=== PATIENT | female | born 1960 | race Caucasian/White ===

== ENCOUNTER 2017-09-22 22:16 | Observation (INO) ==
[2017-09-22] MEDS ORDERED: methylPREDNISolone 125 MG/2 ML VIAL IVP ONE (22:36)
[2017-09-22] MEDS ORDERED: Ipratropium/Albuterol Neb 3 ML IH ONE (22:36)
--- NOTE | 2017-09-22 22:37 | Emergency Department Note ---
Disposition Clinical Impression: COPD exacerbation Disposition: Admitted As Inpatient Condition: Good Time of Disposition: 00:31 SOB HPI - General Chief Complaint: ED Shortness of Breath/Dyspnea Stated Complaint: COPD Time Seen by Provider: 09/22/17 22:18 Source: patient, EMS Mode of arrival: EMS Limitations: no limitations Nursing Notes Reviewed: Yes Vital Signs Reviewed: Yes - History of Present Illness 56-year-old female history of COPD 3 L home oxygen supplementation as needed at home presents to emergency department via EMS for difficulty breathing. States over the past 3 days or so she has progressively been more sure breath. She cannot catch her breath. She denies any chest pain. She reports nonproductive cough. Denies any fevers. States this morning she woke up while laying down having a hard time catching her breath. She is been using albuterol inhalers with minimal relief. She states whenever she is able to use the nebulizer she does bring stuff up. Patient was given breathing treatment by squad with some improvement. Patient feels very anxious. She is not been recently hospitalized. 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 She denies any leg swelling. She is complaining of a headache which she reports occurs when she does not get enough oxygen to her brain. Describes a thriving pain to the front of her forehead. Denies any weakness or tingling. Pt Subjective Complaint: shortness of breath - Related Data Home Medications Medication Instructions Recorded Confirmed Escitalopram [Lexapro] 20 mg PO DAILY 11/01/15 09/23/17 Levothyroxine [Synthroid] 88 mcg PO QAM 11/27/15 09/23/17 Previous Rx's Medication Instructions Recorded Albuterol Sulfate [Albuterol 2 puff IH Q4HR PRN #1 hfa.aer.ad 11/03/15 Inhaler] Budesonide/Formoterol 80/4.5 1 puff IH BIDR #1 hfa.aer.ad 11/03/15 [Symbicort 80/4.5] Tiotropium [Spiriva] 18 mcg IH 0700 #30 capsule 11/03/15 Allergies Allergy/AdvReac Type Severity Reaction Status Date / Time morphine AdvReac Hives Verified 09/23/17 00:38 All systems ED: reviewed and negative except as stated. Review of Systems: As Per HPI Constitutional: Denies: fever, chills ENT ED: Denies: congestion Cardiovascular: Denies: chest pain Respiratory: Reports: cough, dyspnea Gastrointestinal: Denies: abdominal pain, nausea, vomiting Musculoskeletal: Denies: back pain Integumentary: Denies: rash, abrasion Neurological: Reports: headache Past Medical History - Past Medical History Attestation: Yes The following information was validated with the patient. Source: patient Medical history: Reports: arthritis, COPD, GERD, osteoporosis, thyroid disease, other Surgical history: Reports: other Psychiatric history: Reports: anxiety, bipolar, depression, previous psychiatric hospitalization - Social History Smoking Status: Current every day smoker Smokeless Tobacco Status: No (not smoked for 4 days) Alcohol use: Reports: occasionally Drug use: Reports: none Physical Exam - General Limitations: no limitations General appearance: alert, anxious, in distress (Mild respiratory) - Head Head exam: atraumatic, normocephalic, normal inspection - Eye Eye exam: Present: normal appearance, PERRL, EOMI - ENT ENT exam: normal exam, normal oropharynx, mucous membranes moist - Neck Neck exam: Present: normal inspection, full ROM, trachea midline - Chest Chest inspection: Present: normal inspection, symmetric chest wall rise - Respiratory Respiratory exam: Present: respiratory distress (Mild, she is very anxious and tachypneic), wheezes (Diffuse) - Expanded Respiratory Exam Location: wheezes: Left, Right, decreased breath sounds: Left, Right - Cardiovascular Cardiovascular exam: Present: regular rate, normal rhythm, normal heart sounds - Abdominal Exam Abdominal exam: Present: soft, Non-Tender, normal bowel sounds. Absent: tenderness, distention, guarding, rebound, rigidity - Extremities Exam Extremities exam: Present: normal inspection, full ROM, normal capillary refill. Absent: tenderness, pedal edema, calf tenderness - Neurological Exam Neurological exam: Present: alert, oriented X3 - Expanded Neurological Exam Patient oriented to: Present: person, place, time Speech: Present: fluid speech Motor strength - LUE: 5/5 Motor strength - RUE: 5/5 Motor strength - LLE: 5/5 Motor strength - RLE: 5/5 - Psychiatric Psychiatric exam: Present: normal affect, normal mood - Skin Skin exam: Present: warm, dry, intact, normal color. Absent: rash, cyanosis, diaphoresis Course Course Narrative: Patient presents with difficulty breathing worse over the past several days. History COPD. She appears in some respiratory distress. She is very anxious. Tight aeration. Diffuse wheezing. Suspect likely COPD exacerbation. Will give her breathing treatment as well Solu-Medrol. Will reevaluate. At this moment she is complaining of some head ache as well. She attributes this to poor oxygen flow to her head. Toradol ordered for pain. - Reevaluation(s) Reevaluation #1: Review for labs completely unremarkable. EKG without any acute ischemic changes. Chest x-ray does not show pneumonia. Suspect this is most likely a COPD exacerbation. She has better air exchange and will require admission for further management. IV ceftriaxone and azithromycin. She is requesting Tylenol for her headache. Impression is COPD exacerbation. Patient remained stable. Airways intact. She is awake and alert. - Consultations Consultation #1: Spoke with on-call hospitalist simran Jensen to admit for COPD exacerbation. No further orders at this time Time: 00:32 Vital Signs Temperature 98.3 F 09/22/17 22:18 Pulse Rate 98 09/22/17 22:18 Respiratory Rate 20 09/22/17 22:18 Blood Pressure 141/134 09/22/17 22:18 O2 Sat by Pulse Oximetry 94 09/22/17 22:18 Temperature 98.1 F 09/23/17 01:27 Pulse Rate 86 09/23/17 01:27 Respiratory Rate 16 09/23/17 04:01 Blood Pressure 133/91 09/23/17 01:27 O2 Sat by Pulse Oximetry 96 09/23/17 04:01 Oxygen Delivery Oxygen Delivery Nasal Cannula Shortness of Breath/Dyspnea - [facility] Narrative Medical decision making narrative: Patient was discussed with my attending physician who agrees with ED management and final disposition. They independently evaluated the patient. Please refer to their attestation to this encounter for additional information. This note was generated by [employer] voice recognition software and as a result grammatical or spelling errors may occur using this program. - Medical Records Medical records reviewed: Yes I reviewed the patient's medical records. - Lab Data Lab results reviewed: Yes I reviewed the patient's lab results. Result diagrams: 09/23/17 03:51 09/23/17 03:51 Lab Results 09/22/17 09/22/17 Range/Units 22:57 22:57 WBC 6.1 (4.3-11.1) K/mcL RBC 3.95 (3.82-4.97) M/mcL Hgb 12.9 (11.5-15.4) g/dL Hct 36.6 (35.3-44.9) % MCV 92.7 (83.0-100.0) fL MCH 32.7 (28.0-33.3) pg MCHC 35.2 (31.6-35.5) g/dL RDW 12.4 (11.5-14.5) % Plt Count 214 (140-400) K/mcL MPV 10.3 (9.4-12.4) fL Immature Gran % 0.3 (0-4) % Seg Neutrophils % 56.0 % Lymphocytes % 26.1 % Monocytes % 14.4 % Eosinophils % 2.5 % Basophils % 0.7 % Neutrophils # 3.4 (1.6-8.9) K/mcL Lymphocytes # 1.6 (0.6-4.6) K/mcL Monocytes # 0.9 (0.0-1.3) K/mcL Eosinophils # 0.2 (0.0-0.6) K/mcL Basophils # 0.0 (0.0-0.2) K/mcL Sodium 137 (136-145) mEq/L Potassium 3.5 (3.5-5.1) mEq/L Chloride 103 (98-107) mEq/L Carbon Dioxide 26 (23-29) mEq/L BUN 7 (6-20) mg/dL Creatinine 0.64 (0.60-1.20) mg/dL Est GFR ( Amer) > 60 (> 60) Est GFR (Non-Af Amer) > 60 (> 60) BUN/Creatinine Ratio 11 (6-26) Glucose 105 (70-105) mg/dL Calculated Osmolality 282 (280-300) Calcium 9.5 (8.6-10.3) mg/dL - Radiology Data Radiology results reviewed: Yes I reviewed the patient's radiology results. Chest X-Ray 09/22/17 22:36 IMPRESSION: No acute process. D/ / Dimitri Hawkins MD / Dimitri Hawkins MD Interpreting Provider: Dimitri Hawkins MD - EKG Data EKG attestation: Yes I reviewed and interpreted this EKG. EKG results narrative: EKG performed 2241 normal sinus rhythm with short MN interval 94 beats per minute, normal axis, no ST elevation or depression, no T-wave version, intervals within normal limits. Compared to prior EKG performed 11/15/2016 similar consistent findings of normal sinus rhythm. No acute ischemic changes.
[2017-09-22] MEDS ORDERED: Ketorolac 15 MG/ML VIAL IVP ONE (22:47)
[2017-09-22 23:36] LABS: Basophils % 0.7 %; Eosinophils # 0.2 K/mcL (0.0-0.6); Eosinophils % 2.5 %; Hematocrit 36.6 % (35.3-44.9); Hemoglobin 12.9 g/dL (11.5-15.4); Immature Granulocytes % 0.3 % (0-4); Lymphocytes # 1.6 K/mcL (0.6-4.6); Lymphocytes % 26.1 %; Mean Corpuscular HGB Conc 35.2 g/dL (31.6-35.5); Mean Corpuscular Hemoglobin 32.7 pg (28.0-33.3); Mean Corpuscular Volume 92.7 fL (83.0-100.0); Mean Platelet Volume 10.3 fL (9.4-12.4); Monocytes # 0.9 K/mcL (0.0-1.3); Monocytes % 14.4 %; Neutrophils # 3.4 K/mcL (1.6-8.9); Platelet Count 214 K/mcL (140-400); Red Blood Count 3.95 M/mcL (3.82-4.97); Red Cell Distribution Width 12.4 % (11.5-14.5)
[2017-09-22] MEDS ORDERED: Acetaminophen 325 MG TABLET PO ONE (23:39)
[2017-09-22 23:56] LABS: BUN/Creatinine Ratio 11 (6-26); Blood Urea Nitrogen 7 mg/dL (6-20); Calcium 9.5 mg/dL (8.6-10.3); Carbon Dioxide 26 mEq/L (23-29); Chloride 103 mEq/L (98-107); Glucose 105 mg/dL (70-105); Osmolality,Calculated 282 (280-300); Potassium 3.5 mEq/L (3.5-5.1); Sodium 137 mEq/L (136-145); eGFR For African Americans > 60 (> 60); eGFR For Non-African Americans > 60 (> 60)
[2017-09-23] MEDS ORDERED: Azithromycin 500 MG in D5% in Water 250 ML IVPB ONE (00:26)
[2017-09-23] MEDS ORDERED: cefTRIAXone 2,000 MG in Water for inj. (sterile) 20 ML 20 ML IVPB ONE (00:26)
--- NOTE | 2017-09-23 00:46 | Emergency Department Note ---
Disposition Clinical Impression: COPD exacerbation Disposition: Admitted As Inpatient Condition: Good General Adult HPI - General Chief complaint: ED Shortness of Breath/Dyspnea Stated complaint: COPD Time Seen by Provider: 09/22/17 22:18 Source: patient, EMS Mode of arrival: EMS Limitations: no limitations Nursing Notes Reviewed: Yes Vital Signs Reviewed: Yes - History of Present Illness Pain Scale: 0 - Related Data Home Medications Medication Instructions Recorded Confirmed Escitalopram [Lexapro] 20 mg PO DAILY 11/01/15 11/27/15 clonazePAM [Klonopin] 1 mg PO QID 11/01/15 11/27/15 Levothyroxine [Synthroid] 88 mcg PO QAM 11/27/15 11/27/15 Previous Rx's Medication Instructions Recorded Albuterol Sulfate [Albuterol 2 puff IH Q4HR PRN #1 hfa.aer.ad 11/03/15 Inhaler] Budesonide/Formoterol 80/4.5 1 puff IH BIDR #1 hfa.aer.ad 11/03/15 [Symbicort 80/4.5] Tiotropium [Spiriva] 18 mcg IH 0700 #30 capsule 11/03/15 predniSONE [PredniSONE] 20 mg PO DAILY #22 tablet 12/04/15 Allergies Allergy/AdvReac Type Severity Reaction Status Date / Time morphine AdvReac Hives Verified 09/23/17 00:38 Constitutional: Denies: fever, chills ENT ED: Denies: congestion Cardiovascular: Denies: chest pain Respiratory: Reports: cough, dyspnea Gastrointestinal: Denies: abdominal pain, nausea, vomiting Musculoskeletal: Denies: back pain Integumentary: Denies: rash, abrasion Neurological: Reports: headache Past Medical History - Past Medical History Medical history: Reports: arthritis, COPD, GERD, osteoporosis, thyroid disease, other Surgical history: Reports: other Psychiatric history: Reports: anxiety, bipolar, depression, previous psychiatric hospitalization - Social History Smoking Status: Current every day smoker Smokeless Tobacco Status: No (not smoked for 4 days) Alcohol use: Reports: occasionally Drug use: Reports: none Physical Exam - General Limitations: no limitations General appearance: alert, anxious, in distress (Mild respiratory) Course Vital Signs Temperature 98.3 F 09/22/17 22:18 Pulse Rate 98 09/22/17 22:18 Respiratory Rate 20 05/13/18 22:18 Blood Pressure 141/134 05/13/18 22:18 O2 Sat by Pulse Oximetry 94 09/22/17 22:18 Temperature 98.3 F 09/22/17 22:18 Pulse Rate 97 09/22/17 23:12 Respiratory Rate 24 09/22/17 22:43 Blood Pressure 163/100 09/22/17 23:12 O2 Sat by Pulse Oximetry 100 09/22/17 23:12 Oxygen Delivery Oxygen Delivery Nasal Cannula Medical Decision Making - Lab Data Result diagrams: 09/22/17 22:57 09/22/17 22:57 Lab Results 09/22/17 09/22/17 Range/Units 22:57 22:57 WBC 6.1 (4.3-11.1) K/mcL RBC 3.95 (3.82-4.97) M/mcL Hgb 12.9 (11.5-15.4) g/dL Hct 36.6 (35.3-44.9) % MCV 92.7 (83.0-100.0) fL MCH 32.7 (28.0-33.3) pg MCHC 35.2 (31.6-35.5) g/dL RDW 12.4 (11.5-14.5) % Plt Count 214 (140-400) K/mcL MPV 10.3 (9.4-12.4) fL Immature Gran % 0.3 (0-4) % Seg Neutrophils % 56.0 % Lymphocytes % 26.1 % Monocytes % 14.4 % Eosinophils % 2.5 % Basophils % 0.7 % Neutrophils # 3.4 (1.6-8.9) K/mcL Lymphocytes # 1.6 (0.6-4.6) K/mcL Monocytes # 0.9 (0.0-1.3) K/mcL Eosinophils # 0.2 (0.0-0.6) K/mcL Basophils # 0.0 (0.0-0.2) K/mcL Sodium 137 (136-145) mEq/L Potassium 3.5 (3.5-5.1) mEq/L Chloride 103 (98-107) mEq/L Carbon Dioxide 26 (23-29) mEq/L BUN 7 (6-20) mg/dL Creatinine 0.64 (0.60-1.20) mg/dL Est GFR ( Amer) > 60 (> 60) Est GFR (Non-Af Amer) > 60 (> 60) BUN/Creatinine Ratio 11 (6-26) Glucose 105 (70-105) mg/dL Calculated Osmolality 282 (280-300) Calcium 9.5 (8.6-10.3) mg/dL Attestation Statement - Attestation Attestation: I, Sanjiv Pedro MD, personally evaluated this patient and discussed their management with the resident physician. I reviewed the resident's note and agree with the documented findings, medical decision making, and plan of care. 56-year-old female with history of COPD presents to the emergency department with a complaint of increasing shortness of breath over the past 3 days. [employer] with patient states it actually is been about 5 days. She complains of increased cough. No chest pain. No fever. She does use oxygen at home as needed and has been using it continuously for the past 3 days. She has inhalers but no nebulizer. She has been admitted in the past for her COPD. She continues to smoke. On examination patient is a well-developed thin female in mild respiratory distress. She is alert and oriented 3. There is no cyanosis or diaphoresis. Breath sounds are decreased bilaterally with tight diffuse bilateral inspiratory and expiratory wheezes. Heart regular rate and rhythm. Abdomen soft and nontender with normal bowel sounds. No pedal edema. Labs reviewed and unremarkable. Chest x-ray showed no acute abnormality. Patient received triple DuoNeb treatments and IV Solu-Medrol. After treatment she continues to have dyspnea with some increased labored breathing. She continues to have inspiratory and expiratory wheezes. The hospitalist, Dr. Song, was consulted and accepted admission of the patient.
[2017-09-23] MEDS ORDERED: Naloxone 0.4 MG/ML INJ IVP PRN (01:05)
[2017-09-23] MEDS ORDERED: *HR* HYDROcodone/Acet 5/325 mg TABLET PO PRN (01:05)
[2017-09-23] MEDS ORDERED: Ipratropium/Albuterol Neb 3 ML IH PRN (01:10)
--- NOTE | 2017-09-23 01:15 | Internal Med History&Physical ---
Date of Encounter: 09/23/17 Time of Encounter: 00:30 Internal Medicine - H&P: HPI Chief complaint: Shortness of breath Admitted From: Home Plans for Post Hospital Care: Home History of present illness: Ms. Christian is a 56 year old female present to ER for increased shortness of breath for 3 days. Past medical history is significant for COPD on as needed home oxygen. Patient has increased shortness of breath for 3 days. Progressively getting worse. Patient also has nonproductive cough for 2-3 days. Patient to report subjective fever. She has a runny nose as well. She denies sore throat. Patient has mild nausea but no vomiting. Patient denies chest pain. In the emergency room, patient was treated with antibiotic, steroid, and DuoNeb. After treatment, her symptoms has improved significantly. She was admitted as COPD exacerbation. Past Med Surg Social Fam HX - Past Medical History Medical history: arthritis, COPD, GERD, osteoporosis, thyroid disease, other Psychiatric history: anxiety, bipolar, depression, previous psychiatric hospitalization - Past Surgical History Surgical History: other - Social History Smoking Status: Current every day smoker Smokeless Tobacco Status: No (not smoked for 4 days) Alcohol use: occasionally Drug use: none - Family History Mother History Unknown: Yes Internal Medicine - H&P: Meds Escitalopram [Lexapro] 20 mg PO DAILY 11/01/15 [History] Albuterol Sulfate [Albuterol Inhaler] 2 puff IH Q4HR PRN #1 hfa.aer.ad 11/03/15 [Rx] Budesonide/Formoterol 80/4.5 [Symbicort 80/4.5] 1 puff IH BIDR #1 hfa.aer.ad [Rx] Tiotropium [Spiriva] 18 mcg IH 0700 #30 capsule 11/03/15 [Rx] Levothyroxine [Synthroid] 88 mcg PO QAM 11/27/15 [History] 3 Allergy/AdvReac Type Severity Reaction Status Date / Time morphine AdvReac Hives Verified 09/23/17 00:38 All Systems PM: A 10-system review of systems was performed and is negative for pertinent findings except as documented above in the HPI. - Constitutional Vitals: Temp Pulse Resp BP Pulse Ox 98.3 F 97 16 119/72 100 09/22/17 22:18 09/22/17 23:12 09/23/17 00:54 09/23/17 00:54 09/22/17 23:12 General appearance: Present: mild distress, A&O X 3, answers questions appropriately - Head Head exam: Present: atraumatic, normocephalic - Eye Eye exam: Present: PERRL, conjuntiva pink, sclera anicteric Pupils: Present: PERRL - Neck Neck exam general surgery: Present: supple, trachea midline. Absent: lymphadenopathy - Respiratory Respiratory exam: Present: CTAB, wheezes (Scattered wheezes bilaterally). Absent: accessory muscle use, rales, rhonchi Additional comments: Coarse breath sounds bilaterally - Cardiovascular Cardiovascular exam: Present: RRR, +S1, +S2. Absent: diastolic murmur, gallop, rubs, systolic murmur - GI/Abdominal GI/Abdominal exam: Present: normal bowel sounds, soft, no peritoneal signs. Absent: distended, tenderness - Extremities Exam Extremities exam: Present: warm, radial pulses palpable and symmetrical. Absent : calf tenderness, cyanotic, pedal edema - Neurological Exam Neurological exam: Present: CN II-XII intact, oriented X3, no focal deficits. Absent: pronater drift, facial droop, speech deficit - Skin Skin exam: Present: dry, intact Internal Med - H&P Results - Labs CBC & Chem 7: 09/22/17 22:57 09/22/17 22:57 - EKG Data -: EKG Interpreted by Myself EKG shows normal: sinus rhythm Rate: normal - Assessment and plan (1) Tobacco abuse Current Visit: Yes Status: Acute Assessment and plan: Smoking cessation education. Nicotine patch. (2) Acute exacerbation of chronic obstructive airways disease Current Visit: No Status: Acute Assessment and plan: Patient has a history of COPD. Increased shortness of breath with wheezing. Consider COPD exacerbation. - Continue antibiotic, steroid, and bronchodilator treatment - Continue cough syrup for symptomatic treatment - Check respiratory virus panel - Continue oxygen supportive treatment (3) Acute and chronic respiratory failure with hypoxia Current Visit: No Status: Acute Assessment and plan: Due to COPD exacerbation. Continue oxygen supportive treatment. (4) Hypothyroidism Current Visit: No Status: Chronic Assessment and plan: Continue home medications Qualifiers: Hypothyroidism type: unspecified Qualified Code(s): E03.9 - Hypothyroidism , unspecified (5) DVT prophylaxis Current Visit: No Status: Acute Assessment and plan: Heparin subcutaneously - Time Spent With Patient Total time spent is greater than 50% in coordination of care (as documented) at patient's floor/unit and/or counseling patient: 30 minutes 25 - 35 minutes
[2017-09-23] MEDS: Acetaminophen/Butalbital/CaffeineTABLET PO PRN ×4 (01:57→22:06)
[2017-09-23] MEDS: Nicotine 21 MG PATCH.TD24 TD SCH ×2 (01:58→09:18)
[2017-09-23] MEDS: Ipratropium/Albuterol Neb 3 ML IH SCH ×4 (04:01→21:45)
[2017-09-23 04:23] LABS: Basophils % 0.2 %; Hematocrit 33.7 % (35.3-44.9); Hemoglobin 11.7 g/dL (11.5-15.4); Immature Granulocytes % 0.4 % (0-4); Lymphocytes # 0.3 K/mcL (0.6-4.6); Mean Corpuscular HGB Conc 34.7 g/dL (31.6-35.5); Mean Corpuscular Hemoglobin 32.2 pg (28.0-33.3); Mean Corpuscular Volume 92.8 fL (83.0-100.0); Mean Platelet Volume 9.9 fL (9.4-12.4); Monocytes # 0.2 K/mcL (0.0-1.3); Monocytes % 3.1 %; Neutrophils # 4.4 K/mcL (1.6-8.9); Platelet Count 198 K/mcL (140-400); Red Blood Count 3.63 M/mcL (3.82-4.97); Red Cell Distribution Width 12.6 % (11.5-14.5); Segmented Neutrophils % 90.3 %
[2017-09-23 04:41] LABS: BUN/Creatinine Ratio 13 (6-26); Blood Urea Nitrogen 10 mg/dL (6-20); Calcium 9.3 mg/dL (8.6-10.3); Carbon Dioxide 27 mEq/L (23-29); Chloride 101 mEq/L (98-107); Glucose 182 mg/dL (70-105); Magnesium 1.6 mg/dL (1.6-2.6); Osmolality,Calculated 284 (280-300); Potassium 3.5 mEq/L (3.5-5.1); Sodium 135 mEq/L (136-145); eGFR For African Americans > 60 (> 60); eGFR For Non-African Americans > 60 (> 60)
[2017-09-23] MEDS: Acetaminophen 325 MG TABLET PO PRN ×2 (05:29→13:03)
[2017-09-23] MEDS: predniSONE 20 MG TABLET PO SCH (09:18)
[2017-09-23] MEDS: Budesonide/Formoterol 80/4.5 MDI IH SCH ×2 (10:06→21:45)
[2017-09-23] MEDS ORDERED: Ibuprofen 600 MG TABLET PO ONE (11:04)
--- NOTE | 2017-09-23 11:12 | Internal Med Progress Note ---
Date of Encounter: 09/23/17 Time of Encounter: 10:50 - Assessment and plan (1) Acute exacerbation of chronic obstructive airways disease Current Visit: Yes Status: Acute Assessment and plan: Acute exacerbation of chronic COPD. Patient reports 3 day history of increasing shortness of breath and cough, 2 week history of cough and congestion. Patient already has home oxygen, she is above her baseline use of 2 L. Lungs with wheezing and rhonchi in posterior lung alejandre. Patient coughs with any deep inspiration. Continue O2, titrate as needed to maintain sats greater than 92%. Continue IV antibiotics, Symbicort, Guiafenesin, and Prednisone. Monitor labs and vitals. (2) Acute and chronic respiratory failure with hypoxia Current Visit: Yes Status: Acute Assessment and plan: Secondary to COPD exacerbation. Continue 02 as needed to maintain sats < 92%. (3) DVT prophylaxis Current Visit: No Status: Acute Assessment and plan: Heparin SQ BID. (4) Tobacco abuse Current Visit: Yes Status: Acute Assessment and plan: Smoking cessation education. Continue nicotine replacement therapy. Pt states that she smokes approximately 1/2 PPD. - Time Spent With Patient Total time spent is greater than 50% in coordination of care (as documented) at patient's floor/unit and/or counseling patient: less than 15 minutes - Subjective Interval history: She was seen and assessed the bedside at 10:50 AM. Patient is alert, awake, oriented. She reports that she has felt ill for the last 2 weeks, worse over the last 3 days. Increasing shortness of breath, cough for 3 days. She reports that she is currently smoking approximately one half pack of cigarettes per day. She denies chest pain, abdominal pain, nausea, vomiting, diarrhea, constipation. She does report a frontal headache that she has had since yesterday. She was given Fioricet this morning that did not provide relief. She denies blurred vision or vision changes, neck pain, dizziness. Patient denied discussed plan of care including possibly another overnight stay, patient verbalizes understanding. - Constitutional Vitals: Temp Pulse Resp BP Pulse Ox 97.6 F 72 18 106/68 95 09/23/17 07:43 09/23/17 07:43 09/23/17 10:06 09/23/17 07:43 09/23/17 10:06 General appearance: Present: cooperative, mild distress, A&O X 3, pleasant, no acute distress, answers questions appropriately - Head Head exam: Present: atraumatic, normal inspection, normocephalic - Eye Eye exam: Present: normal appearance, conjuntiva pink, sclera anicteric - Neck Neck exam general surgery: Present: supple, trachea midline. Absent: lymphadenopathy, tenderness - Respiratory Respiratory exam: Present: chest wall tenderness, rhonchi, wheezes. Absent: accessory muscle use, CTAB, rales, respiratory distress - Cardiovascular Cardiovascular exam: Present: RRR, +S1, +S2. Absent: bradycardia, diastolic murmur, gallop, rubs, systolic murmur, tachycardia - GI/Abdominal GI/Abdominal exam: Present: normal bowel sounds, soft. Absent: distended, hepatomegaly, tenderness - Extremities Exam Extremities exam: Present: normal capillary refill, normal inspection, warm, radial pulses palpable and symmetrical. Absent: calf tenderness, cyanotic, pedal edema, tenderness - Neurological Exam Neurological exam: Present: alert, oriented X3, no focal deficits. Absent: facial droop, speech deficit - Skin Skin exam: Present: dry, intact, normal color, warm. Absent: rash Internal Medicine: Result - Labs CBC & Chem 7: 09/23/17 03:51 09/23/17 03:51 Labs: Short CBC 09/23/17 Range/Units 03:51 WBC 4.9 (4.3-11.1) K/mcL Hgb 11.7 (11.5-15.4) g/dL Hct 33.7 L (35.3-44.9) % Plt Count 198 (140-400) K/mcL Neutrophils # 4.4 (1.6-8.9) K/mcL BMP 09/23/17 03:51 Sodium 135 L Potassium 3.5 Chloride 101 Carbon Dioxide 27 BUN 10 Creatinine 0.79 Glucose 182 H Calcium 9.3 Consult Discharge Plan - Plan Referrals: Zari,Luis Plunkett MD [Primary Care Provider] -
[2017-09-23 11:47] LABS: Adenovirus Not Detected (Not Detect); Bordetella Pertussis Not Detected (Not Detect); Chlamydophila pneumoniae Not Detected (Not Detect); Coronavirus 229E Not Detected (Not Detect); Coronavirus HKU1 Not Detected (Not Detect); Coronavirus NL63 Not Detected (Not Detect); Coronavirus OC43 Not Detected (Not Detect); Human Metapneumovirus Not Detected (Not Detect); Human Rhinovirus/Enterovirus Not Detected (Not Detect); Influenza A Subtype 2009 H1 Not Detected (Not Detect); Influenza A Untypeable Not Detected (Not Detect); Influenza B Not Detected (Not Detect); Mycoplasma pneumoniae Not Detected (Not Detect); Parainfluenza Virus 1 Not Detected (Not Detect); Parainfluenza Virus 2 Not Detected (Not Detect); Parainfluenza Virus 3 Not Detected (Not Detect); Parainfluenza Virus 4 Not Detected (Not Detect); Respiratory Syncytial Virus Not Detected (Not Detect)
--- NOTE | 2017-09-23 13:16 | Electrocardiograph Report ---
[address] [address] Test Date: 2017-09-22 Pat Name: Julia Christian Department: 102 Room: 3B45 Gender: F Cna Hha: Tmr : 1960 Requested By: Jan Tomlinson Order Number: [id number] Reading MD: Nehemias Edouard Measurements Intervals [place] Rate: 94 P: 88 SC: 108 QRS: 65 QRSD: 88 T: 67 QT: 376 QTc: 428 Interpretive Statements SINUS RHYTHM WITH SHORT SC INTERVAL LEFT ATRIAL ENLARGEMENT BASELINE ARTIFACT Electronically Signed On 09-23-2017 10:28:33 EDT by Nehemias Edouard
[2017-09-23] MEDS: *HR* Heparin 5,000 UNIT/ML VIAL SQ SCH (18:09)
[2017-09-23] MEDS ORDERED: hydrOXYzine pamoate 25 MG CAPSULE PO PRN (18:41)
[2017-09-23] MEDS: hydrOXYzine pamoate 25 MG CAPSULE PO PRN (19:33)
[2017-09-24] MEDS ORDERED: Azithromycin 500 MG in D5% in Water 250 ML IVPB SCH
[2017-09-24] MEDS: Ipratropium/Albuterol Neb 3 ML IH SCH ×2 (04:22→10:33)
[2017-09-24] MEDS: *HR* Heparin 5,000 UNIT/ML VIAL SQ SCH (06:01)
[2017-09-24 07:15] LABS: Basophils % 0.1 %; Hematocrit 37.9 % (35.3-44.9); Hemoglobin 12.9 g/dL (11.5-15.4); Immature Granulocytes % 0.6 % (0-4); Lymphocytes # 1.3 K/mcL (0.6-4.6); Lymphocytes % 12.1 %; Mean Corpuscular Hemoglobin 31.2 pg (28.0-33.3); Mean Corpuscular Volume 91.5 fL (83.0-100.0); Mean Platelet Volume 9.9 fL (9.4-12.4); Monocytes # 0.7 K/mcL (0.0-1.3); Monocytes % 6.5 %; Neutrophils # 8.6 K/mcL (1.6-8.9); Platelet Count 276 K/mcL (140-400); Red Blood Count 4.14 M/mcL (3.82-4.97); Red Cell Distribution Width 12.8 % (11.5-14.5); Segmented Neutrophils % 80.7 %
[2017-09-24 07:43] LABS: BUN/Creatinine Ratio 21 (6-26); Blood Urea Nitrogen 17 mg/dL (6-20); Carbon Dioxide 24 mEq/L (23-29); Chloride 99 mEq/L (98-107); Glucose 99 mg/dL (70-105); Osmolality,Calculated 280 (280-300); Potassium 3.6 mEq/L (3.5-5.1); Sodium 134 mEq/L (136-145); eGFR For African Americans > 60 (> 60); eGFR For Non-African Americans > 60 (> 60)
[2017-09-24] MEDS: Nicotine 21 MG PATCH.TD24 TD SCH (07:58)
[2017-09-24] MEDS: hydrOXYzine pamoate 25 MG CAPSULE PO PRN (07:58)
[2017-09-24] MEDS: predniSONE 20 MG TABLET PO SCH (07:58)
[2017-09-24] MEDS ORDERED: Isovue-370 500 ML INFUS..BTL IV ONE (09:29)
[2017-09-24] MEDS: Budesonide/Formoterol 80/4.5 MDI IH SCH (10:33)
--- NOTE | 2017-09-24 10:36 | Discharge Summary ---
- NOTES TO OUTPATIENT PROVIDER Notes to Outpatient Provider: Chest CTA with tree-in-bud nodularity in the right upper lobe is stable suggesting postinflammatory or postinfectious changes. Follow-up as necessary with repeat imaging Orders not resulted at time of discharge: Pending orders 09/24/17 09:29 CTA chest [CT angio chest] [CT] Routine Date of Encounter: 09/24/17 Time of Encounter: 10:35 - Discharge Diagnosis (1) Acute exacerbation of chronic obstructive airways disease Priority: Primary Status: Acute Assessment and Plan: has known COPD. presented with worsening shortness of breath and diffuse wheezing. Symptoms improved with steroids, IV ATB and bronchodilators. Smoking cessation strongly advised. Continue Levaquin for total duration of 7 days, steroid burst. Recommend follow-up with PCP within one week (2) Acute and chronic respiratory failure with hypoxia Priority: Primary Status: Acute Assessment and Plan: Known history COPD and wears oxygen at home. With increased O2 needs secondary to COPD exacerbation. Chest CTA negative for pulmonary embolism. Continue treating COPD exacerbation as noted above. (3) Tobacco abuse Priority: Primary Status: Acute Assessment and Plan: current smoker; cessation advised. (4) Headache Priority: Secondary Status: Resolved Assessment and Plan: Has known history of migraines per patient report. With increased home stressors/anxiety. Head CT negative. Headache resolved at time of discharge. Recommend follow-up with PCP. Qualifiers: Headache type: unspecified Headache chronicity pattern: acute headache Intractability: not intractable Qualified Code(s): R51 - Headache Hospital course: Please see assessment and plan for Hospital course Discharge discussed with: patient (Seen and bedside. Patient is new to me, information obtained from chart review and patient report. Patient says she still has some shortness of breath that is worse with exertion but overall significantly improved from yesterday. She would like to go home today if possible. She also reports increased home stressors which could be contributing to her shortness of breath. No chest pain. Strongly encourage smoking cessation) Time spent discussing smoking cessation with patient: 3 to 10 minutes - Time Spent with Patient Total time spent providing and/or coordinating discharge services: Less than 30 minutes - Discharge Medications Prescriptions: levoFLOXacin [Levaquin] 750 mg PO DAILY #6 tablet predniSONE [PredniSONE] 40 mg PO DAILY #10 tablet Home Medications: Escitalopram [Lexapro] 10 mg PO DAILY 11/01/15 [History] Albuterol Sulfate [Albuterol Inhaler] 2 puff IH Q4HR PRN #1 hfa.aer.ad 11/03/15 [Rx] Budesonide/Formoterol 80/4.5 [Symbicort 80/4.5] 1 puff IH BIDR #1 hfa.aer.ad [Rx] Levothyroxine [Synthroid] 88 mcg PO Q48H 11/27/15 [History] Atorvastatin Calcium [Lipitor] 20 mg PO HS 09/23/17 [History] Levothyroxine [Synthroid] 75 mcg PO Q48H 09/23/17 [History] Metoprolol [Lopressor] 25 mg PO BID 09/23/17 [History] levoFLOXacin [Levaquin] 750 mg PO DAILY #6 tablet 09/24/17 [Rx] predniSONE [PredniSONE] 40 mg PO DAILY #10 tablet 09/24/17 [Rx] Allergies/Adverse Reactions: 3 Allergy/AdvReac Type Severity Reaction Status Date / Time morphine AdvReac Hives Verified 09/23/17 00:38 Date of admission: 09/23/17 00:34 Primary care physician: Luis Hameed MD Consults: 09/24/17 07:45 Consult to Physical Therapy [CONS] Routine Comment: Evaluate, develop and implement POC Reason for Consult: Evaluation Does patient have active BEDREST order?: No Is patient medically & hemodynamically stable?: Yes OT [Consult to Occupational Therapy] [CONS] Routine Comment: Evaluate, develop and implement POC Reason for Consult: Evaluation Does patient have active BEDREST order?: No Is patient medically & hemodynamically stable?: Yes Discharging clinician: Theresa Hernandez Anticipated date of discharge: 09/24/17 - Constitutional Vitals: Temp Pulse Resp BP Pulse Ox 98.2 F 97 17 148/93 94 09/24/17 07:15 09/24/17 07:15 09/24/17 07:15 09/24/17 07:15 09/24/17 07:50 General appearance: Present: cooperative, A&O X 3, pleasant, no acute distress, answers questions appropriately - Head Head exam: Present: atraumatic, normocephalic - Eye Eye exam: Present: PERRL, conjuntiva pink, sclera anicteric Pupils: Present: PERRL - Neck Neck exam general surgery: Present: supple, trachea midline. Absent: lymphadenopathy - Respiratory Respiratory exam: Present: CTAB, wheezes. Absent: accessory muscle use, rales, rhonchi - Cardiovascular Cardiovascular exam: Present: RRR, +S1, +S2. Absent: diastolic murmur, gallop, rubs, systolic murmur - GI/Abdominal GI/Abdominal exam: Present: normal bowel sounds, soft, no peritoneal signs. Absent: distended, tenderness - Extremities Exam Extremities exam: Present: warm, radial pulses palpable and symmetrical. Absent : calf tenderness, cyanotic, pedal edema - Neurological Exam Neurological exam: Present: CN II-XII intact, oriented X3, no focal deficits. Absent: pronater drift, facial droop, speech deficit - Skin Skin exam: Present: dry, intact - Patient Status Disposition: Home, Self-Care Condition: Good Functional capacity at discharge: independent ambulation Overall status at discharge: patient is progressing back to baseline - Discharge Instructions Instructions: Chronic Obstructive Pulmonary Disease (DC), How to Stop Smoking ( DC), Levofloxacin (By mouth), Prednisone (By mouth) Follow Up With: Luis Hameed MD [Primary Care Provider] - 09/25/17 10:30 am - Diet and Activity Activity: increase activity as tolerated Diet: advance to your usual diet
[2017-09-24 11:57] VITALS: BP 155/78
[2017-09-24] MEDS: Acetaminophen 325 MG TABLET PO PRN (12:23)
== END 2017-09-24 17:06 | disposition home or self-care (01) ==
LOC: 3BNU 22:16 → EMEROO 22:16 → 3BNU 09-23 01:02
PROVIDERS: ADMIT Internal Medicine; ATTEND Pediatrics

== ENCOUNTER 2018-01-19 12:10 | Observation (INO) ==
[2018-01-19] MEDS ORDERED: Ipratropium/Albuterol Neb 3 ML IH ONE (12:36)
[2018-01-19] MEDS ORDERED: predniSONE 20 MG TABLET PO ONE (12:36)
--- NOTE | 2018-01-19 13:27 | Emergency Department Note ---
Disposition Clinical Impression: COPD with exacerbation Disposition: Admitted As Inpatient Condition: Good General Adult HPI - General Chief complaint: ED Shortness of Breath/Dyspnea Stated complaint: ELIZABETH Time Seen by Provider: 01/19/18 12:16 Source: patient, family, EMS Mode of arrival: EMS Limitations: no limitations Nursing Notes Reviewed: Yes Vital Signs Reviewed: Yes - History of Present Illness HPI Narrative: 57-year-old female with significant past medical history of COPD presenting to the emergency department chief complaint of shortness of breath. Patient states she is supposed be using oxygen as needed at home but does not know how many liters. Patient states for the past few days to a week she has had increased shortness of breath at home. She has been trying her nebulizer treatments at home with minimal relief. Today she is extremely short of breath and called EMS. When EMS arrived they placed on 5 L nasal cannula and provided her a DuoNeb treatment. When patient arrived she is still having diffuse instant for and expiratory wheezing. Patient denies any chest pain. Patient does state she has had intermittent fevers at home but is unsure of the MAXIMUM TEMPERATURE. Denies any sick contacts. Pain Scale: 0 - Related Data Home Medications Medication Instructions Recorded Confirmed Escitalopram [Lexapro] 10 mg PO DAILY 11/01/15 09/23/17 Levothyroxine [Synthroid] 88 mcg PO Q48H 11/27/15 09/23/17 Atorvastatin Calcium [Lipitor] 20 mg PO HS 09/23/17 09/23/17 Levothyroxine [Synthroid] 75 mcg PO Q48H 09/23/17 09/23/17 Metoprolol [Lopressor] 25 mg PO BID 09/23/17 09/23/17 Previous Rx's Medication Instructions Recorded Albuterol Sulfate [Albuterol 2 puff IH Q4HR PRN #1 hfa.aer.ad 11/03/15 Inhaler] Budesonide/Formoterol 80/4.5 1 puff IH BIDR #1 hfa.aer.ad 11/03/15 [Symbicort 80/4.5] levoFLOXacin [Levaquin] 750 mg PO DAILY #6 tablet 09/24/17 predniSONE [PredniSONE] 40 mg PO DAILY #10 tablet 09/24/17 Allergies Allergy/AdvReac Type Severity Reaction Status Date / Time morphine AdvReac Hives Verified 09/23/17 00:38 All systems ED: reviewed and negative except as stated. Constitutional: Reports: fever. Denies: weakness Eyes: Reports: as per HPI ENT ED: Reports: as per HPI Cardiovascular: Reports: dyspnea on exertion. Denies: chest pain, palpitations Respiratory: Reports: cough, dyspnea, wheezes Gastrointestinal: Denies: abdominal pain, nausea, vomiting Genitourinary: Reports: as per HPI Musculoskeletal: Reports: as per HPI Integumentary: Reports: as per HPI Neurological: Denies: weakness, numbness, paresthesias Psychiatric: Reports: as per HPI Endocrine: Reports: as per HPI Hematological/Lymphatic: Reports: as per HPI Allergic/Immunologic: Reports: as per HPI Past Medical History - Past Medical History Attestation: Yes The following information was validated with the patient. Medical history: Reports: arthritis, COPD, GERD, osteoporosis, thyroid disease, other Surgical history: Reports: other Psychiatric history: Reports: anxiety, bipolar, depression, previous psychiatric hospitalization - Social History Smoking Status: Current every day smoker Smokeless Tobacco Status: No (not smoked for 4 days) Alcohol use: Reports: occasionally Drug use: Reports: none Physical Exam - General Limitations: no limitations General appearance: alert, in no apparent distress - Head Head exam: atraumatic, normocephalic, normal inspection - Eye Eye exam: Present: normal appearance. Absent: scleral icterus, conjunctival injection - ENT ENT exam: mucous membranes dry - Neck Neck exam: Present: normal inspection, full ROM. Absent: tenderness, meningismus - Chest Chest inspection: Present: normal inspection, symmetric chest wall rise. Absent : tenderness, rash - Respiratory Respiratory exam: Present: other (Diffuse inspiratory and expiratory wheezing throughout) - Cardiovascular Cardiovascular exam: Present: regular rate, normal rhythm, normal heart sounds - Abdominal Exam Abdominal exam: Present: soft, Non-Tender. Absent: distention, guarding, rebound - Extremities Exam Extremities exam: Present: normal inspection, full ROM - Neurological Exam Neurological exam: Present: alert, oriented X3 - Psychiatric Psychiatric exam: Present: normal affect, normal mood - Skin Skin exam: Present: warm, intact Course Course Narrative: 57-year-old female presenting to the emergency department chief complaint shortness of breath. On exam patient has diffuse inspiratory and expiratory wheezing. Patient on nasal cannula with oxygen saturation in the upper 90s. Otherwise vital signs stable. Patient is alert and oriented 3. We will provide the patient with 3 [id number] DuoNeb labs along with oral steroids, chest x-ray and labs. Disposition pending results. Patient agrees with this plan. - Reevaluation(s) Reevaluation #1: Patient's x-ray within normal limits. Labs at baseline for patient. On reassessment patient still has diffuse inspiratory and expiratory wheezing. Due to failure of outpatient therapy and treatments in the emergency department we will plan to admit her for COPD exacerbation. Patient is alert and oriented 3 in room with stable vital signs. Patient agrees with this plan. The hospitalist [employer] Dr. Mcdonough who agrees to accept the patient at this time. Vital Signs Temperature 97.6 F 01/19/18 13:19 Pulse Rate 74 01/19/18 13:19 Respiratory Rate 24 01/19/18 13:19 Blood Pressure 111/89 01/19/18 13:19 O2 Sat by Pulse Oximetry 98 01/19/18 13:19 Temperature 97.6 F 01/19/18 16:04 Pulse Rate 81 01/19/18 16:04 Respiratory Rate 20 01/19/18 16:04 Blood Pressure 142/89 01/19/18 16:04 O2 Sat by Pulse Oximetry 96 01/19/18 16:04 Oxygen Delivery Oxygen Delivery Room Air Medical Decision Making - Lab Data Result diagrams: 01/19/18 13:25 01/19/18 13:25 Lab Results 01/19/18 01/19/18 01/19/18 Range/Units 13:25 13:25 13:25 WBC 5.5 (4.3-11.1) K/mcL RBC 4.38 (3.82-4.97) M/mcL Hgb 13.4 (11.5-15.4) g/dL Hct 40.3 (35.3-44.9) % MCV 92.0 (83.0-100.0) fL MCH 30.6 (28.0-33.3) pg MCHC 33.3 (31.6-35.5) g/dL RDW 13.6 (11.5-14.5) % Plt Count 249 (140-400) K/mcL MPV 10.4 (9.4-12.4) fL Immature Gran % 0.4 (0-4) % Seg Neutrophils % 78.8 % Lymphocytes % 11.8 % Monocytes % 6.6 % Eosinophils % 1.1 % Basophils % 1.3 % Neutrophils # 4.3 (1.6-8.9) K/mcL Lymphocytes # 0.7 (0.6-4.6) K/mcL Monocytes # 0.4 (0.0-1.3) K/mcL Eosinophils # 0.1 (0.0-0.6) K/mcL Basophils # 0.1 (0.0-0.2) K/mcL Sodium 135 L (136-145) mEq/L Potassium 4.0 (3.5-5.1) mEq/L Chloride 101 (98-107) mEq/L Carbon Dioxide 25 (23-29) mEq/L BUN 14 (6-20) mg/dL Creatinine 0.66 (0.60-1.20) mg/dL Est GFR ( Amer) > 60 (> 60) Est GFR (Non-Af Amer) > 60 (> 60) BUN/Creatinine Ratio 21 (6-26) Glucose 88 (70-105) mg/dL Calculated Osmolality 280 (280-300) Calcium 9.7 (8.6-10.3) mg/dL Troponin I < 0.03 (< 0.04) ng/mL B-Natriuretic Peptide 216 H (Less than 100) pg/mL - EKG Data EKG #1 EKG attestation: Yes I reviewed and interpreted this EKG. EKG results narrative: Sinus rhythm. 70 beats for minute. MS interval 163, QRS 81, QTC 504. No sign of acute ST segment elevation or ischemia.
--- NOTE | 2018-01-19 13:28 | Emergency Department Note ---
Disposition Clinical Impression: COPD with exacerbation Disposition: Admitted As Inpatient Referrals: Luis Hameed MD [Primary Care Provider] - Forms: ED Satisfaction Letter General Adult HPI - General Chief complaint: ED Shortness of Breath/Dyspnea Stated complaint: ELIZABETH Time Seen by Provider: 01/19/18 12:16 Source: EMS Limitations: no limitations - History of Present Illness Pain Scale: 0 - Related Data Home Medications Medication Instructions Recorded Confirmed Escitalopram [Lexapro] 10 mg PO DAILY 11/01/15 09/23/17 Levothyroxine [Synthroid] 88 mcg PO Q48H 11/27/15 09/23/17 Atorvastatin Calcium [Lipitor] 20 mg PO HS 09/23/17 09/23/17 Levothyroxine [Synthroid] 75 mcg PO Q48H 09/23/17 09/23/17 Metoprolol [Lopressor] 25 mg PO BID 09/23/17 09/23/17 Previous Rx's Medication Instructions Recorded Albuterol Sulfate [Albuterol 2 puff IH Q4HR PRN #1 hfa.aer.ad 11/03/15 Inhaler] Budesonide/Formoterol 80/4.5 1 puff IH BIDR #1 hfa.aer.ad 11/03/15 [Symbicort 80/4.5] levoFLOXacin [Levaquin] 750 mg PO DAILY #6 tablet 09/24/17 predniSONE [PredniSONE] 40 mg PO DAILY #10 tablet 09/24/17 Allergies Allergy/AdvReac Type Severity Reaction Status Date / Time morphine AdvReac Hives Verified 09/23/17 00:38 Past Medical History - Past Medical History Medical history: Reports: arthritis, COPD, GERD, osteoporosis, thyroid disease, other Surgical history: Reports: other Psychiatric history: Reports: anxiety, bipolar, depression, previous psychiatric hospitalization - Social History Smoking Status: Current every day smoker Smokeless Tobacco Status: No (not smoked for 4 days) Alcohol use: Reports: occasionally Drug use: Reports: none Physical Exam - General Limitations: no limitations General appearance: alert, in no apparent distress Course Vital Signs Temperature 97.6 F 01/19/18 13:19 Pulse Rate 74 01/19/18 13:19 Respiratory Rate 24 01/19/18 13:19 Blood Pressure 111/89 01/19/18 13:19 O2 Sat by Pulse Oximetry 98 01/19/18 13:19 Temperature 97.6 F 01/19/18 13:19 Pulse Rate 81 01/19/18 14:53 Respiratory Rate 20 01/19/18 14:53 Blood Pressure 132/94 01/19/18 14:53 O2 Sat by Pulse Oximetry 98 01/19/18 14:53 Oxygen Delivery Oxygen Delivery Nasal Cannula Medical Decision Making - Lab Data Result diagrams: 01/19/18 13:25 01/19/18 13:25 Lab Results 01/19/18 01/19/18 01/19/18 Range/Units 13:25 13:25 13:25 WBC 5.5 (4.3-11.1) K/mcL RBC 4.38 (3.82-4.97) M/mcL Hgb 13.4 (11.5-15.4) g/dL Hct 40.3 (35.3-44.9) % MCV 92.0 (83.0-100.0) fL MCH 30.6 (28.0-33.3) pg MCHC 33.3 (31.6-35.5) g/dL RDW 13.6 (11.5-14.5) % Plt Count 249 (140-400) K/mcL MPV 10.4 (9.4-12.4) fL Immature Gran % 0.4 (0-4) % Seg Neutrophils % 78.8 % Lymphocytes % 11.8 % Monocytes % 6.6 % Eosinophils % 1.1 % Basophils % 1.3 % Neutrophils # 4.3 (1.6-8.9) K/mcL Lymphocytes # 0.7 (0.6-4.6) K/mcL Monocytes # 0.4 (0.0-1.3) K/mcL Eosinophils # 0.1 (0.0-0.6) K/mcL Basophils # 0.1 (0.0-0.2) K/mcL Sodium 135 L (136-145) mEq/L Potassium 4.0 (3.5-5.1) mEq/L Chloride 101 (98-107) mEq/L Carbon Dioxide 25 (23-29) mEq/L BUN 14 (6-20) mg/dL Creatinine 0.66 (0.60-1.20) mg/dL Est GFR ( Amer) > 60 (> 60) Est GFR (Non-Af Amer) > 60 (> 60) BUN/Creatinine Ratio 21 (6-26) Glucose 88 (70-105) mg/dL Calculated Osmolality 280 (280-300) Calcium 9.7 (8.6-10.3) mg/dL Troponin I < 0.03 (< 0.04) ng/mL B-Natriuretic Peptide 216 H (Less than 100) pg/mL Attestation Statement - Attestation Attestation: I examined this patient and my medical decision-making was reviewed with the Resident Physician. I agree with the documented findings, disposition and treatment plan as described except to the extent set forth below. Patient to ED with shortness of breath. Cough. Worse today. Feels like a COPD exacerbation. On exam she is mildly tachypneic with expiratory wheezing. Plan. Cardiac workup. X-ray. Nebs steroids and reevaluate. Patient still wheezing, dyspneic, with increased O2 demand. We will admit. Chest X-Ray 01/19/18 12:36 IMPRESSION: No acute abnormality. Emphysema. D/ / Miguel Angel Wang MD / Miguel Angel Wang MD Interpreting Provider: Miguel Angel Wang MD
[2018-01-19 13:42] LABS: Basophils # 0.1 K/mcL (0.0-0.2); Basophils % 1.3 %; Eosinophils # 0.1 K/mcL (0.0-0.6); Eosinophils % 1.1 %; Hematocrit 40.3 % (35.3-44.9); Hemoglobin 13.4 g/dL (11.5-15.4); Immature Granulocytes % 0.4 % (0-4); Lymphocytes # 0.7 K/mcL (0.6-4.6); Lymphocytes % 11.8 %; Mean Corpuscular HGB Conc 33.3 g/dL (31.6-35.5); Mean Corpuscular Hemoglobin 30.6 pg (28.0-33.3); Mean Platelet Volume 10.4 fL (9.4-12.4); Monocytes # 0.4 K/mcL (0.0-1.3); Monocytes % 6.6 %; Neutrophils # 4.3 K/mcL (1.6-8.9); Platelet Count 249 K/mcL (140-400); Red Blood Count 4.38 M/mcL (3.82-4.97); Red Cell Distribution Width 13.6 % (11.5-14.5); Segmented Neutrophils % 78.8 %
[2018-01-19 14:02] LABS: BUN/Creatinine Ratio 21 (6-26); Blood Urea Nitrogen 14 mg/dL (6-20); Calcium 9.7 mg/dL (8.6-10.3); Carbon Dioxide 25 mEq/L (23-29); Chloride 101 mEq/L (98-107); Glucose 88 mg/dL (70-105); Osmolality,Calculated 280 (280-300); Sodium 135 mEq/L (136-145); Troponin I < 0.03 ng/mL (< 0.04); eGFR For Non-African Americans > 60 (> 60)
[2018-01-19] MEDS ORDERED: Levofloxacin 750 MG/150 ML 750 MG/150 ML BAG IVPB ONE (14:49)
--- NOTE | 2018-01-19 16:17 | Internal Med History&Physical ---
Date of Encounter: 01/19/18 Time of Encounter: 16:17 Internal Medicine - H&P: HPI Chief complaint: sob x 5 days Admitted From: Home Plans for Post Hospital Care: Home History of present illness: Ms. Christian is a 57 year old female with history of anxiety, smoker (15 or less cigs per day), arthritis, COPD, and GERD. The patient reports SOB that has been worsening over the past 5 days. She reported that she quit smoking "2" days ago and her breathing has been much improved. She however reports that she has been having a worsening cough and yellow phlegm. Patient reports occasional oxygen use at home "only if I need it". She was on 3 liters at home, she said she is not certain what her oxygen tank is supposed to be set at, as she typically does not wear it. The patient has history of anxiety and appears slightly anxious along with her sob. She was given bronhodilators, levaquin and prednisone in the ED. Will continue the Levaquin dose due to chest x-ray results showing emphysema. WBC currently 5.5. BNP is 216. No pedal edema noted. The patient reported subjective fevers. Past Med Surg Social Fam HX - Past Medical History Medical history: arthritis, COPD, GERD, osteoporosis, thyroid disease, other Additional medical history: bronchitis Psychiatric history: anxiety, bipolar, depression, previous psychiatric hospitalization - Past Surgical History Surgical History: other Additional surgical history: radioactive thyroid removal - Social History Smoking Status: Current every day smoker Smokeless Tobacco Status: No (not smoked for 4 days) Alcohol use: occasionally Drug use: none - Family History Mother Living Status: Hx Family Cancer: Yes Father Hx Family Respiratory Disorders: Yes Internal Medicine - H&P: Meds Escitalopram [Lexapro] 10 mg PO DAILY 11/01/15 [History] Albuterol Sulfate [Albuterol Inhaler] 2 puff IH Q4HR PRN #1 hfa.aer.ad 11/03/15 [Rx] Budesonide/Formoterol 80/4.5 [Symbicort 80/4.5] 1 puff IH BIDR #1 hfa.aer.ad [Rx] Levothyroxine [Synthroid] 88 mcg PO Q48H 11/27/15 [History] Atorvastatin Calcium [Lipitor] 20 mg PO HS 09/23/17 [History] Levothyroxine [Synthroid] 75 mcg PO Q48H 09/23/17 [History] Metoprolol [Lopressor] 25 mg PO BID 09/23/17 [History] levoFLOXacin [Levaquin] 750 mg PO DAILY #6 tablet 09/24/17 [Rx] predniSONE [PredniSONE] 40 mg PO DAILY #10 tablet 09/24/17 [Rx] 3 Allergy/AdvReac Type Severity Reaction Status Date / Time morphine AdvReac Hives Verified 09/23/17 00:38 All Systems PM: A 10-system review of systems was performed and is negative for pertinent findings except as documented above in the HPI. - Constitutional Constitutional: fever(s), no chills, no night sweats - EENT Eyes: no change in vision, no discharge, no pain, no photophobia Ears: no ear discharge, no ear pain, no tinnitus Nose, mouth and throat: no dysphagia, no nasal discharge, no neck pain, no sore throat - Cardiovascular Cardiovascular ROS IM: dyspnea, no chest pain, no diaphoresis, no lightheadedness, no palpitations, no syncope - Respiratory Respiratory: cough, dyspnea, wheezing, chest congestion, no excessive phlegm production - Gastrointestinal Gastrointestinal: no abdominal pain, no diarrhea, no hematemesis, no hematochezia, no melena, no nausea, no vomiting - Genitourinary Genitourinary: no change in urinary stream, no dysuria, no flank pain, no hematuria - Musculoskeletal Musculoskeletal ROS IM: no numbness, no tingling - Integumentary Integumentary IM: no rash, no unusual bruising - Neurological Neurological ROS: no confusion, no convulsions, no focal weakness, no numbness, no tingling, no tremor(s) - Psychiatric Psychiatric: anxiety - Hematologic/Lymphatic Hematologic/Lymphatic: no easy bruising - Constitutional Vitals: Temp Pulse Resp BP Pulse Ox 97.6 F 81 20 142/89 96 01/19/18 16:04 01/19/18 16:04 01/19/18 16:04 01/19/18 16:04 01/19/18 16:04 General appearance: Present: A&O X 3 Exam: 10 point exam - Head Head exam: Present: atraumatic, normocephalic - Eye Eye exam: Present: PERRL, conjuntiva pink, sclera anicteric Pupils: Present: PERRL - Neck Neck exam general surgery: Present: supple, trachea midline. Absent: lymphadenopathy - Respiratory Respiratory exam: Present: rhonchi, wheezes, tachypnea. Absent: accessory muscle use, CTAB, rales - Cardiovascular Cardiovascular exam: Present: RRR, +S1, +S2. Absent: diastolic murmur, gallop, rubs, systolic murmur - GI/Abdominal GI/Abdominal exam: Present: normal bowel sounds, soft, no peritoneal signs. Absent: distended, tenderness - Extremities Exam Extremities exam: Present: warm, radial pulses palpable and symmetrical. Absent : calf tenderness, cyanotic, pedal edema - Neurological Exam Neurological exam: Present: CN II-XII intact, oriented X3, no focal deficits. Absent: pronater drift, facial droop, speech deficit - Skin Skin exam: Present: dry, intact Internal Med - H&P Results - Labs CBC & Chem 7: 01/19/18 13:25 01/19/18 13:25 - Assessment and plan (1) Acute and chronic respiratory failure with hypoxia Current Visit: Yes Status: Suspected Assessment and plan: Patient presenting with early signs of resp failure. She indicates she takes breathing medications, and uses oxygen as needed at home. She is also a current smoker. These factors likely attributed to the acute episode today. Oxygen to keep sats gt 92%. Monitor daily labs Prednisone daily duonebs q4 hours Iv levaquin daily (2) Acute exacerbation of chronic obstructive airways disease Current Visit: Yes Status: Acute Assessment and plan: She indicates she takes breathing medications, and uses oxygen as needed at home. She is also a current smoker. These factors likely created the atmosphere for this acute episode today. Oxygen to keep sats gt 92%. Incentive spirometry Monitor daily labs Prednisone daily dunebs q4 hours IV levaquin daily (3) Nicotine dependence with nicotine-induced disorder Current Visit: Yes Status: Chronic Assessment and plan: Nicotine patch q24h Smoking cessation Qualifiers: Nicotine product type: cigarettes Qualified Code(s): F17.219 - Nicotine dependence, cigarettes, with unspecified nicotine-induced disorders (4) Anxiety Current Visit: Yes Status: Chronic Assessment and plan: Moderately controlled. Patient presents with some anxiety today, likely d/t sob. No anti-anxiolytics on home med list. Plan is to add if necessary. (5) Emphysema of lung Current Visit: Yes Status: Acute Assessment and plan: Plan is the same as above Qualifiers: Emphysema type: unspecified Qualified Code(s): J43.9 - Emphysema, unspecified - Time Spent With Patient Total time spent is greater than 50% in coordination of care (as documented) at patient's floor/unit and/or counseling patient:
[2018-01-19] MEDS ORDERED: Naloxone 0.4 MG/ML INJ IVP PRN (16:19)
[2018-01-19] MEDS: Nicotine 14 MG PATCH.TD24 TD SCH (17:12)
[2018-01-19] MEDS: Budesonide/Formoterol 80/4.5 MDI IH SCH (20:33)
[2018-01-19] MEDS: Ipratropium/Albuterol Neb 3 ML IH SCH ×2 (20:33→23:12)
[2018-01-19] MEDS: Ketorolac 30 MG/ML VIAL IVP PRN (21:02)
[2018-01-20] MEDS: Ipratropium/Albuterol Neb 3 ML IH SCH ×6 (03:28→23:11)
[2018-01-20] MEDS: Acetaminophen 325 MG TABLET PO PRN ×2 (03:51→14:33)
[2018-01-20 06:38] LABS: Basophils % 0.2 %; Hematocrit 36.9 % (35.3-44.9); Hemoglobin 12.4 g/dL (11.5-15.4); Immature Granulocytes % 0.4 % (0-4); Lymphocytes # 0.6 K/mcL (0.6-4.6); Mean Corpuscular HGB Conc 33.6 g/dL (31.6-35.5); Mean Corpuscular Hemoglobin 29.7 pg (28.0-33.3); Mean Corpuscular Volume 88.5 fL (83.0-100.0); Mean Platelet Volume 10.6 fL (9.4-12.4); Monocytes # 0.2 K/mcL (0.0-1.3); Monocytes % 3.5 %; Neutrophils # 4.7 K/mcL (1.6-8.9); Platelet Count 282 K/mcL (140-400); Red Blood Count 4.17 M/mcL (3.82-4.97); Red Cell Distribution Width 13.6 % (11.5-14.5); Segmented Neutrophils % 85.9 %
[2018-01-20 07:02] LABS: BUN/Creatinine Ratio 30 (6-26); Blood Urea Nitrogen 22 mg/dL (6-20); Calcium 10.1 mg/dL (8.6-10.3); Carbon Dioxide 24 mEq/L (23-29); Chloride 98 mEq/L (98-107); Glucose 118 mg/dL (70-105); Osmolality,Calculated 278 (280-300); Potassium 3.8 mEq/L (3.5-5.1); Sodium 132 mEq/L (136-145); eGFR For Non-African Americans > 60 (> 60)
[2018-01-20] MEDS: Budesonide/Formoterol 80/4.5 MDI IH SCH ×2 (07:35→19:50)
[2018-01-20] MEDS: predniSONE 20 MG TABLET PO SCH (08:34)
[2018-01-20] MEDS: Nicotine 14 MG PATCH.TD24 TD SCH (08:35)
--- NOTE | 2018-01-20 10:13 | Internal Med Progress Note ---
Hospitalist Progress Note - Encounter Date of Encounter: 01/20/18 Time of Encounter: 10:09 - Subjective Interval History: Ms Christian is currently in observation for acute on chronic hypoxic respiratory failure and acute exac COPD. She remains moderate to high risk due to potential for worsening clinical status. Ms Christian is resting comfortably at this time. She is currently on 3 liters oxygen. She states she does not wear her oxygen at home - "only when I need it which is not often." She thinks she is supposed to be on 2 or 3 liters. Continues to smoke. At this time she is still coughing but unable to mobilize sputum. She has been up in the room while wearing oxygen and feels less dyspneic. No CP. No GI issues. She wants to go home but realizes that she will most likely be back to ED quickly. - Exam Vitals: Temp Pulse Resp BP Pulse Ox 97.6 F 71 16 155/89 98 01/20/18 07:14 01/20/18 07:14 01/20/18 07:35 01/20/18 07:14 01/20/18 07:35 Exam: General: Alert and oriented. Comfortable at this time resting in bed. Skin: Normal color, no rash, no lesions. H: Normocephalic. EENT: EOMI. Mucus membranes moist. No lesion. Cardiovascular: Normal S1 & S2, no rubs, murmurs or gallops. No JVD. Pulse regular. Lungs: Good inspiratory effort. Wheeze end exp heard bilaterally. No rhonchi or rales. Abdomen: Soft, non-tender, no rigidity. Normal bowel sounds. Extremities: No deformity, no edema or tenderness, no joint swelling or clubbing. Neurological: Normal cognition and motor skills. Pulses: Carotid and radial pulses normal +2. Rest of the physical exam is non contributory - Assessment and Plan (1) Acute and chronic respiratory failure with hypoxia Current Visit: Yes Status: Resolved Assessment and Plan: Pt with hx of chronic hypoxic respiratory failure but does not use her oxygen at home. Arrived to ED requiring 5 liters supplementation. Now on 3 liters which is most likely her baseline. Respiratory failure has resolved. (2) COPD with exacerbation Current Visit: Yes Status: Acute Assessment and Plan: Improving slowly but continues with symptoms. Will continue abx, aerosols, oxygen and steroids. Add mucolytic. I suspect she is high risk for readmission if discharged today. Hopeful discharge tomorrow. (3) Hypothyroidism Current Visit: No Status: Chronic Assessment and Plan: Chronic issue. (4) Tobacco abuse Current Visit: No Status: Chronic Assessment and Plan: Cessation counselling. DVT Prophylaxis: Will add heparin subqu. - Time Spent with Patient Total time spent is greater than 50% in coordination of care (as documented) at patient's floor/unit and/or counseling patient: Internal Medicine: Result - Labs CBC & Chem 7: 01/20/18 05:30 01/20/18 05:30 Labs: Short CBC 01/20/18 Range/Units 05:30 WBC 5.5 (4.3-11.1) K/mcL Hgb 12.4 (11.5-15.4) g/dL Hct 36.9 (35.3-44.9) % Plt Count 282 (140-400) K/mcL Neutrophils # 4.7 (1.6-8.9) K/mcL BMP 01/20/18 05:30 Sodium 132 L Potassium 3.8 Chloride 98 Carbon Dioxide 24 BUN 22 H Creatinine 0.74 Glucose 118 H Calcium 10.1 Consult Discharge Plan - Plan Referrals: Ucchica,Luis Plunkett MD [Primary Care Provider] - (3) Hypothyroidism Qualifiers: Hypothyroidism type: acquired Qualified Code(s): E03.9 - Hypothyroidism, unspecified
[2018-01-20] MEDS: Ketorolac 30 MG/ML VIAL IVP PRN ×2 (16:37→20:14)
[2018-01-20] MEDS: Levofloxacin 750 MG/150 ML 750 MG/150 ML BAG IVPB SCH (16:38)
[2018-01-20] MEDS: *HR* Heparin 5,000 UNIT/ML VIAL SQ SCH (18:18)
[2018-01-21] MEDS: Ipratropium/Albuterol Neb 3 ML IH SCH ×4 (04:15→15:46)
[2018-01-21] MEDS: *HR* Heparin 5,000 UNIT/ML VIAL SQ SCH (05:02)
[2018-01-21] MEDS: Budesonide/Formoterol 80/4.5 MDI IH SCH (07:42)
[2018-01-21] MEDS: Acetaminophen 325 MG TABLET PO PRN (10:06)
[2018-01-21] MEDS: predniSONE 20 MG TABLET PO SCH (10:07)
[2018-01-21] MEDS: Levofloxacin 750 MG/150 ML 750 MG/150 ML BAG IVPB SCH (10:10)
[2018-01-21] MEDS: Nicotine 14 MG PATCH.TD24 TD SCH (10:17)
[2018-01-21] MEDS ORDERED: traMADol 50 MG TABLET PO PRN (12:03)
[2018-01-21] MEDS ORDERED: Ibuprofen 600 MG TABLET PO ONE (13:31)
[2018-01-21 15:40] VITALS: BP 170/106
--- NOTE | 2018-01-21 17:19 | Discharge Summary ---
Date of Encounter: 01/21/18 Time of Encounter: 17:00 - Discharge Diagnosis (1) COPD with exacerbation Priority: Primary Status: Acute (2) Acute and chronic respiratory failure with hypoxia Priority: Primary Status: Acute (3) GERD (gastroesophageal reflux disease) Priority: Secondary Status: Chronic Qualifiers: Esophagitis presence: esophagitis presence not specified Qualified Code(s) : K21.9 - Gastro-esophageal reflux disease without esophagitis (4) Hypothyroidism Priority: Secondary Status: Chronic Qualifiers: Hypothyroidism type: acquired Qualified Code(s): E03.9 - Hypothyroidism, unspecified (5) Low back pain Priority: Secondary Status: Resolved Qualifiers: Chronicity: acute Back pain laterality: midline Sciatica presence: without sciatica Qualified Code(s): M54.5 - Low back pain (6) Depression with anxiety Priority: Secondary Status: Chronic (7) Tobacco abuse Priority: Secondary Status: Chronic Hospital course: This 57-year-old woman was admitted to the hospital with progressing dyspnea, coughing and wheezing developing in the last 5 days preceding this admission. It got somewhat better in the last 2 days - when she quit smoking. The patient was diagnosed with exacerbation of COPD/acute on chronic hypoxic respiratory failure. Her chest x-ray did not show any infiltrates. She was treated with Levaquin and oral prednisone. She got nebulizer treatments with DuoNeb and Symbicort. She got treatment with Mucinex. The patient developed low back pain on the day of discharge; without any radiation. It basically subsided after giving her 600 mg of oral ibuprofen. CONDITION AT DISCHARGE: Her breathing seems to be baseline again. She is on 3 L/min nasal cannula oxygen. Skin: Free of rash and discoloration. Respiratory: Normal breath sounds with no crackles and wheezes bilaterally. CV: Heart is regular with no gallop or murmur. GI: Abdomen is flat and soft with no palpable mass or visceromegaly. Neuro exam: There is no focal deficits. Normal speech, swallowing and gait. SEE DISCHARGE ORDERS/MEDICATIONS.. The patient was advised to quit using tobacco. Discharge discussed with: patient, nurse, social work Time spent discussing smoking cessation with patient: 3 to 10 minutes - Time Spent with Patient Total time spent providing and/or coordinating discharge services: Greater than 30 minutes (40 minutes) - Discharge Medications Prescriptions: PredniSONE [Deltasone] 20 mg PO QAM 5 Days #5 tablet Home Medications: Escitalopram [Lexapro] 10 mg PO DAILY 11/01/15 [History] Levothyroxine [Synthroid] 88 mcg PO Q48H 11/27/15 [History] Atorvastatin Calcium [Lipitor] 20 mg PO HS 09/23/17 [History] Levothyroxine [Synthroid] 75 mcg PO Q48H 09/23/17 [History] Metoprolol [Lopressor] 25 mg PO BID 09/23/17 [History] Albuterol Sulfate [Proair Hfa] 2 puff IH Q4H PRN 01/21/18 [History] Fluticasone/Vilanterol [Breo Ellipta 100-25 Mcg INH] 1 puff IH DAILY 01/21/18 [ History] Ipratropium/Albuterol Neb [Duoneb] 3 ml IH Q4HR PRN 01/21/18 [History] PredniSONE [Deltasone] 20 mg PO QAM 5 Days #5 tablet 01/21/18 [Rx] Tiotropium [Spiriva] 18 mcg PO DAILY 01/21/18 [History] Allergies/Adverse Reactions: 3 Allergy/AdvReac Type Severity Reaction Status Date / Time morphine AdvReac Hives Verified 09/23/17 00:38 Date of admission: 01/19/18 15:09 Primary care physician: Luis Hameed MD Discharging clinician: Ridge Maynard Anticipated date of discharge: 01/21/18 - Constitutional Vitals: Temp Pulse Resp BP Pulse Ox 97.6 F 65 18 170/106 96 01/21/18 15:38 01/21/18 15:38 01/21/18 15:47 01/21/18 15:38 01/21/18 15:47 General appearance: Present: A&O X 3, no acute distress, answers questions appropriately Exam: xxx - Patient Status Disposition: Home Health Service Condition: Good Functional capacity at discharge: independent ambulation Overall status at discharge: patient is back to baseline - Discharge Instructions Instructions: Chronic Obstructive Pulmonary Disease (DC), Anxiety (DC) Follow Up With: Julia Dennis [Advanced Practice Nurse] - (Please follow up in 5-7 days ) Additional Instructions: The patient was advised to quit using tobacco. - Diet and Activity Activity: resume usual activities as tolerated Diet: advance to your usual diet - VTE Deep Vein Thrombosis/Pulmonary Embolism Present on Admission: No
--- NOTE | 2018-01-21 17:43 | Physician Discharge Referral ---
Home Health/Hosp Referral Info Transfer to: Home Health Attending Provider: Tamiko Maynard MD Provider in Charge Post Discharge: PCP - Diagnosis (1) COPD with exacerbation Priority: Primary Status: Acute (2) Acute and chronic respiratory failure with hypoxia Priority: Primary Status: Acute (3) GERD (gastroesophageal reflux disease) Priority: Secondary Status: Chronic (4) Hypothyroidism Priority: Secondary Status: Chronic (5) Low back pain Priority: Secondary Status: Resolved (6) Depression with anxiety Priority: Secondary Status: Chronic (7) Tobacco abuse Priority: Secondary Status: Chronic - Respiratory Orders Oxygen / L per min (3 l/min) Smoking Cessation: Smoking cessation has been advised. For more information, call the [place] Tobacco Quit Line at 3-649-QHRR-NOW. - Diet/Nutrition Diet/Nutrition Orders: Regular - Activity Activity Orders: Up ad chavez - Services Needed Following services are medically necessary services: Nursing - Transfer Medications Prescriptions: PredniSONE [Deltasone] 20 mg PO QAM 5 Days #5 tablet Home Medications: Escitalopram [Lexapro] 10 mg PO DAILY 11/01/15 [History] Levothyroxine [Synthroid] 88 mcg PO Q48H 11/27/15 [History] Atorvastatin Calcium [Lipitor] 20 mg PO HS 09/23/17 [History] Levothyroxine [Synthroid] 75 mcg PO Q48H 09/23/17 [History] Metoprolol [Lopressor] 25 mg PO BID 09/23/17 [History] Albuterol Sulfate [Proair Hfa] 2 puff IH Q4H PRN 01/21/18 [History] Fluticasone/Vilanterol [Breo Ellipta 100-25 Mcg INH] 1 puff IH DAILY 01/21/18 [ History] Ipratropium/Albuterol Neb [Duoneb] 3 ml IH Q4HR PRN 01/21/18 [History] PredniSONE [Deltasone] 20 mg PO QAM 5 Days #5 tablet 01/21/18 [Rx] Tiotropium [Spiriva] 18 mcg PO DAILY 01/21/18 [History] Allergies/Adverse Reactions: 3 Allergy/AdvReac Type Severity Reaction Status Date / Time morphine AdvReac Hives Verified 09/23/17 00:38 Certification: Further, I certify that my clinical findings support that this patient is homebound (i.e. absences from home require considerable and taxing effort and are for medical reasons or [employer] services or infrequently or short duration when for other reasons) because: Homebound Reason: Absences from home are contraindicated except to recieve medical care Attestation: My signature below is to certify that this patient is under my care and that I, or nurse practitioner, or a physician's public relations assistant working with me, has a face-to -face encounter with this patient.
--- NOTE | 2018-01-23 17:40 | Electrocardiograph Report ---
[place] [id number] Test Date: 2018-01-19 Pat Name: Julia Christian Department: [id number] Room: 3B55 Gender: F Reading Assistant: : [id number] Requested By: Agnieszka Heredia Order Number: [id number] Reading MD: Gia Rodrigues Measurements Intervals [place] Rate: 79 P: 88 IA: 150 QRS: 115 QRSD: 91 T: 85 QT: 433 QTc: 497 Interpretive Statements Sinus rhythm Right atrial enlargement Right axis deviation Abnormal R-wave progression, late transition Nonspecific T abnrm, anterolateral leads Borderline prolonged QT interval Electronically Signed On 01-23-2018 17:38:57 EDT by Gia Rodrigues
== END 2018-01-21 18:23 | disposition home health service (06) ==
LOC: EMEROOARM 12:10 → 3BNU 12:10 → SUATTDRO 15:09 → 3BNU 16:21
PROVIDERS: ADMIT Internal Medicine; ATTEND Internal Medicine

== ENCOUNTER 2018-02-16 16:17 | Inpatient (IN) ==
[2018-02-16] MEDS ORDERED: Ipratropium/Albuterol Neb 3 ML IH ONE (16:18)
[2018-02-16] MEDS ORDERED: methylPREDNISolone 125 MG/2 ML VIAL IVP ONE (16:18)
--- NOTE | 2018-02-16 16:25 | Emergency Department Note ---
Disposition Clinical Impression: COPD exacerbation Fever Qualifiers: Fever type: unspecified Qualified Code(s): R50.9 - Fever, unspecified Altered mental status Qualifiers: Altered mental status type: unspecified Qualified Code(s): R41.82 - Altered mental status, unspecified Disposition: Admitted As Inpatient Condition: Fair SOB HPI - General Chief Complaint: ED Shortness of Breath/Dyspnea Stated Complaint: ELIZABETH Time Seen by Provider: 02/16/18 16:18 Source: patient, EMS Mode of arrival: EMS Limitations: no limitations Nursing Notes Reviewed: Yes Vital Signs Reviewed: Yes - History of Present Illness 57-year-old female history of oxygen-dependent COPD on 3 L continuously who presents to the ER with a complaint of shortness of breath. The patient states that she developed worsening shortness of breath this evening. She has had a cough. She was found to be 82% on her home oxygen upon arrival. The patient was given a DuoNeb treatment in route and improved to 97%. She will also noted to be febrile by their check. Upon arrival the patient is alert however is in moderate respiratory distress. She reports some nondescript chest pain. No history of CAD, DVT or PE. She has been hospitalized previously for her COPD. No other complaints. Pt Subjective Complaint: shortness of breath, cough Onset (ago): hour(s) Context: recent illness Severity: severe Consistency/Duration: constant Improves with: nothing Worsens with: nothing Known history of: COPD Associated symptoms: Reports: chest pain, fever, cough Treatment prior to arrival: bronchodilator Cough present: Yes Cough Description: Involuntary Cough Frequency: Intermittent Sputum production: Yes - Related Data Home oxygen amount: 3 liters Home Medications Medication Instructions Recorded Confirmed Escitalopram [Lexapro] 10 mg PO DAILY 11/01/15 02/16/18 Levothyroxine [Synthroid] 88 mcg PO Q48H 11/27/15 02/16/18 Atorvastatin Calcium [Lipitor] 20 mg PO HS 09/23/17 02/16/18 Levothyroxine [Synthroid] 75 mcg PO Q48H 09/23/17 02/16/18 Metoprolol [Lopressor] 25 mg PO BID 09/23/17 01/21/18 Albuterol Sulfate [Proair Hfa] 2 puff IH Q4H PRN 01/21/18 01/21/18 Fluticasone/Vilanterol [Breo 1 puff IH DAILY 01/21/18 02/16/18 Ellipta 100-25 Mcg INH] Ipratropium/Albuterol Neb [Duoneb] 3 ml IH Q4HR PRN 01/21/18 01/21/18 Tiotropium [Spiriva] 18 mcg PO DAILY 01/21/18 02/16/18 Cholecalciferol (D-3) [Vitamin D] 5,000 unit PO DAILY 02/16/18 Lisinopril [Zestril] 10 mg PO DAILY 02/16/18 02/16/18 Mirtazapine [Remeron] 15 mg PO DAILY 02/16/18 Previous Rx's Medication Instructions Recorded PredniSONE [Deltasone] 20 mg PO QAM 5 Days #5 tablet 01/21/18 Allergies Allergy/AdvReac Type Severity Reaction Status Date / Time morphine AdvReac Hives Verified 09/23/17 00:38 All systems ED: reviewed and negative except as stated. Cardiovascular: Reports: chest pain Respiratory: Reports: cough, dyspnea, sputum production Gastrointestinal: Denies: abdominal pain, nausea, vomiting Past Medical History - Past Medical History Attestation: Yes The following information was validated with the patient. Source: patient Medical history: Reports: arthritis, COPD, GERD, osteoporosis, thyroid disease, other Surgical history: Reports: other Psychiatric history: Reports: anxiety, bipolar, depression, previous psychiatric hospitalization - Social History Smoking Status: Current every day smoker Smokeless Tobacco Status: No (not smoked for 4 days) Alcohol use: Reports: occasionally Drug use: Reports: none Physical Exam - General Limitations: no limitations General appearance: alert, in distress - Head Head exam: atraumatic, normocephalic, normal inspection - Eye Eye exam: Present: normal appearance - ENT ENT exam: normal exam - Neck Neck exam: Present: normal inspection - Chest Chest inspection: Present: normal inspection, symmetric chest wall rise - Respiratory Respiratory exam: Present: respiratory distress, accessory muscle use, prolonged expiratory phase, other (Diminished breath sounds globally). Absent: stridor - Cardiovascular Cardiovascular exam: Present: regular rate, normal rhythm, normal heart sounds - Abdominal Exam Abdominal exam: Present: soft, Non-Tender. Absent: tenderness, distention, rigidity - Extremities Exam Extremities exam: Present: normal inspection, full ROM - Expanded Upper Extremity Exam Shoulder exam: Present: normal inspection, full ROM Arm exam: Present: normal inspection, full ROM Elbow exam: Present: normal inspection, full ROM Forearm/Wrist exam: Present: normal inspection, full ROM Hand exam: Present: normal inspection, full ROM - Expanded Lower Extremity Exam Hip/Pelvis exam: Present: normal inspection, full ROM Upper leg exam: Present: normal inspection, full ROM Knee exam: Present: normal inspection, full ROM Lower leg exam: Present: normal inspection, full ROM Ankle exam: Present: normal inspection, full ROM Foot/toe exam: Present: normal inspection, full ROM - Skin Skin exam: Present: warm, dry Course Course Narrative: Patient seen and examined at time of arrival. She is in significant respiratory distress. Plan to continue DuoNeb treatments, Solu-Medrol, BiPAP. EKG, chest x-ray, labs, admission for COPD exacerbation. - Reevaluation(s) Reevaluation #1: Discussed results of imaging labs with the patient and family. She is doing well on BiPAP. She did make some auditory and have difficulty with thinking. Family says she has had some [id number] things her last few days. We will add an ABG and a head CT. Reevaluation #2: ABG shows a mild hypercapnic respiratory acidosis. Head CT is unremarkable. Second liter of fluids ordered. Vital Signs Temperature 102.0 F H 02/16/18 16:18 Pulse Rate 108 02/16/18 16:18 Respiratory Rate 24 02/16/18 16:18 Blood Pressure 191/112 02/16/18 16:18 O2 Sat by Pulse Oximetry 88 02/16/18 16:18 Temperature 98 F 02/16/18 19:32 Pulse Rate 88 02/16/18 19:32 Respiratory Rate 20 02/16/18 19:30 Blood Pressure 96/81 02/16/18 19:32 O2 Sat by Pulse Oximetry 97 02/16/18 19:32 Oxygen Delivery Oxygen Delivery Bipap Shortness of Breath/Dyspnea - MDM Narrative Medical decision making narrative: 57-year-old female presenting with shortness of breath and cough in the setting of underlying COPD. Hypoxic initially which improved prior to evaluation. She is noted to be febrile, tachycardia, tachycardic with a marginal blood pressure. The patient's workup included a normal head CT, ABG consistent with COPD hypercapnic acidosis, EKG without ischemic findings as well as Rocephin unremarkable labs. The patient was given 1 L of IV fluids and a second order for marginal blood pressure. Suspect clinical pneumonia given her symptomatology. She is admitted to the hospitalist service for further evaluation. - Lab Data Lab results reviewed: Yes I reviewed the patient's lab results. Result diagrams: 02/16/18 17:20 02/16/18 16:18 Lab Results 02/16/18 02/16/18 02/16/18 Range/Units 16:18 16:18 16:52 WBC (4.3-11.1) K/mcL RBC (3.82-4.97) M/mcL Hgb (11.5-15.4) g/dL Hct (35.3-44.9) % MCV (83.0-100.0) fL MCH (28.0-33.3) pg MCHC (31.6-35.5) g/dL RDW (11.5-14.5) % Plt Count (140-400) K/mcL MPV (9.4-12.4) fL Seg Neutrophils % % Band Neutrophils % (0-4) % Lymphocytes % % Monocytes % % Basophils % % Neutrophils # (1.6-8.9) K/mcL Lymphocytes # (0.6-4.6) K/mcL Monocytes # (0.0-1.3) K/mcL Basophils # (0.0-0.2) K/mcL Sample Site ABG pH (7.32-7.45) pH Units ABG pCO2 (35-45) mmHg ABG pO2 (85-104) mmHg ABG HCO3 (21-27) mEq/L ABG Total CO2 (20-26) mEq/L ABG O2 Saturation (95-98) % ABG Base Excess (-2 to 3) mEq/L Harvey Test O2 Delivery Device Inspired O2 (1-15=lpm [id number]=%) PEEP cm H2O Pressure Support cm H2O Sodium 130 L (136-145) mEq/L Potassium 4.4 (3.5-5.1) mEq/L Chloride 100 (98-107) mEq/L Carbon Dioxide 26 (23-29) mEq/L BUN 14 (6-20) mg/dL Creatinine 0.77 (0.60-1.20) mg/dL Est GFR ( Amer) > 60 (> 60) Est GFR (Non-Af Amer) > 60 (> 60) BUN/Creatinine Ratio 18 (6-26) Glucose 132 H (70-105) mg/dL Calculated Osmolality 272 L (280-300) Lactic Acid 0.9 (0.5-2.2) mmol/L Calcium 9.5 (8.6-10.3) mg/dL Troponin I < 0.03 (< 0.04) ng/mL B-Natriuretic Peptide 311 H (Less than 100) pg/mL 02/16/18 02/16/18 Range/Units 17:20 18:18 WBC 4.6 (4.3-11.1) K/mcL RBC 3.68 L (3.82-4.97) M/mcL Hgb 11.2 L (11.5-15.4) g/dL Hct 35.1 L (35.3-44.9) % MCV 95.4 D (83.0-100.0) fL MCH 30.4 (28.0-33.3) pg MCHC 31.9 (31.6-35.5) g/dL RDW 14.7 H (11.5-14.5) % Plt Count 231 (140-400) K/mcL MPV 10.1 (9.4-12.4) fL Seg Neutrophils % 40.0 % Band Neutrophils % 36.0 H (0-4) % Lymphocytes % 18.0 % Monocytes % 2.0 % Basophils % 4.0 % Neutrophils # 3.5 (1.6-8.9) K/mcL Lymphocytes # 0.8 (0.6-4.6) K/mcL Monocytes # 0.1 (0.0-1.3) K/mcL Basophils # 0.2 (0.0-0.2) K/mcL Sample Site L Brach ABG pH 7.27 L (7.32-7.45) pH Units ABG pCO2 61 H (35-45) mmHg ABG pO2 90 (85-104) mmHg ABG HCO3 28 H (21-27) mEq/L ABG Total CO2 30 H (20-26) mEq/L ABG O2 Saturation 95 (95-98) % ABG Base Excess 0 (-2 to 3) mEq/L Harvey Test N/A O2 Delivery Device BiPAP Inspired O2 36.0 (1-15=lpm [id number]=%) PEEP 5 cm H2O Pressure Support 5 cm H2O Sodium (136-145) mEq/L Potassium (3.5-5.1) mEq/L Chloride (98-107) mEq/L Carbon Dioxide (23-29) mEq/L BUN (6-20) mg/dL Creatinine (0.60-1.20) mg/dL Est GFR ( Amer) (> 60) Est GFR (Non-Af Amer) (> 60) BUN/Creatinine Ratio (6-26) Glucose (70-105) mg/dL Calculated Osmolality (280-300) Lactic Acid (0.5-2.2) mmol/L Calcium (8.6-10.3) mg/dL Troponin I (< 0.04) ng/mL B-Natriuretic Peptide (Less than 100) pg/mL - Radiology Data Radiology results reviewed: Yes I reviewed the patient's radiology results. Chest X-Ray 02/16/18 16:18 IMPRESSION: Slightly rotated patient. Bibasilar atelectasis. D/ / Nydia Davis MD / Nydia Davis MD Interpreting Provider: Nydia Davis MD Head CT 02/16/18 18:02 IMPRESSION: No acute intracranial abnormality. D/ / Ambrosio Burris MD / Ambrosio Burris MD Interpreting Provider: Ambrosio Burris MD - EKG Data EKG attestation: Yes I reviewed and interpreted this EKG. EKG results narrative: EKG demonstrates sinus tachycardia with a rate of 117. Normal axis. Normal intervals. Normal R-wave progression. No gross ST elevations or depressions. No acute ischemic findings. Critical Care Time Critical Care Time: Yes Total Critical Care Time: 35 Attestation: Critical care time 35 minutes managing patient's acute COPD exacerbation. S.B.A.Anyi. - S.B.A.R. Situation: Demographics, MOA Background: Presenting Complaint, Relevant PMH, Meds, & Allergies Assessment: Vital Signs, Course and respsone to treatment, Exam Concerns, Patient/Family Expectation, Pertinant Lab Results Recommendation: Barrier(s) to disposition, Recommendation based on pending studies, treatments, or consults Aleisha Report Given to: Dr. Nohemi Moraes Repor Time: 19:23 Attestation Statement - Attestation Attestation: Patient was seen with resident physician. I reviewed the history, physical, assessment and plan, and agree with the findings. I also personally evaluated this patient and had [id number] time with this patient. 57-year-old female presents emergency Department chief complaint shortness of breath. Says his shortness of breath started earlier this evening. She has a history of COPD is on 3 L of home O2. She says that she is also had a cough for last couple days with small amount of sputum production. Patient states that she called EMS for transportation so she can get evaluation and treatment for her difficult breathing. EMS arrival had a pulse ox of 82%. They gave her a DuoNeb, placed her on portable oxygen and brought her to the emergency department. She was also found to be febrile per EMS. Patient denies other symptoms. Review of systems as above remainder negative. Physical exam vital signs showed multiple abnormalities. ENT is unremarkable. Heart tachycardic regular rhythm. Lungs diffuse wheezing with increased work of breathing and some respiratory distress. Abdomen is soft and nontender. Extremities are unremarkable. Neurologically alert and oriented. Skin no rashes. Psych normal. ED course. Patient's condition on arrival was consistent with someone who is coming need to try BiPAP to try and help the breathing. I were to breathing treatments as well as steroids. Her fevers or concerning so the possibility of having pneumonia and also existed. We will draw blood cultures and start IV antibiotics. Patient will be admitted to the hospital service for further evaluation and treatment. The patient breathing improved throughout her stay., She did have a short period where she seemed a little bit confused. This prompted a CT scan of her head which was negative. Additionally patient had initially hypertension and then her blood pressure dropped a little bit. I am not sure if this is related to the fact that she is breathing easier and on the BiPAP. All this information was communicated to the hospitalist prior to the patient been taking to the floor. Critical care time was 35 minutes. I agree with resident physician assessment and plan.
[2018-02-16] MEDS ORDERED: Acetaminophen 325 MG TABLET PO ONE (17:12)
[2018-02-16] MEDS ORDERED: 0.9 % Sodium Chloride 1,000 ML IVC ONE ×2 (17:13→19:17)
[2018-02-16] MEDS ORDERED: Levofloxacin 750 MG/150 ML 750 MG/150 ML BAG IVPB ONE (17:13)
[2018-02-16 17:28] LABS: BUN/Creatinine Ratio 18 (6-26); Blood Urea Nitrogen 14 mg/dL (6-20); Calcium 9.5 mg/dL (8.6-10.3); Carbon Dioxide 26 mEq/L (23-29); Chloride 100 mEq/L (98-107); Glucose 132 mg/dL (70-105); Osmolality,Calculated 272 (280-300); Potassium 4.4 mEq/L (3.5-5.1); Sodium 130 mEq/L (136-145); eGFR For Non-African Americans > 60 (> 60)
[2018-02-16 17:29] LABS: Troponin I < 0.03 ng/mL (< 0.04)
[2018-02-16 17:51] LABS: Hematocrit 35.1 % (35.3-44.9); Hemoglobin 11.2 g/dL (11.5-15.4); Mean Corpuscular HGB Conc 31.9 g/dL (31.6-35.5); Mean Corpuscular Hemoglobin 30.4 pg (28.0-33.3); Mean Corpuscular Volume 95.4 fL (83.0-100.0); Mean Platelet Volume 10.1 fL (9.4-12.4); Platelet Count 231 K/mcL (140-400); Red Blood Count 3.68 M/mcL (3.82-4.97); Red Cell Distribution Width 14.7 % (11.5-14.5)
[2018-02-16 17:56] LABS: Basophils # 0.2 K/mcL (0.0-0.2); Lymphocytes # 0.8 K/mcL (0.6-4.6); Monocytes # 0.1 K/mcL (0.0-1.3); Neutrophils # 3.5 K/mcL (1.6-8.9)
[2018-02-16 18:23] LABS: ABG Base Excess 0 mEq/L (-2 to 3); ABG HCO3 28 mEq/L (21-27); ABG Oxygen Saturation 95 % (95-98); ABG PCO2 61 mmHg (35-45); ABG PH 7.27 pH Units (7.32-7.45); ABG PO2 90 mmHg (85-104); ABG TCO2 30 mEq/L (20-26); Blood Gas PEEP 5 cm H2O; Blood Gas Pressure Support 5 cm H2O
[2018-02-16] MEDS ORDERED: Piperacillin/Tazobactam 3.375 GM in 0.9 % Sodium Chloride Mini Bag 100 ML IVPB ONE (19:15)
[2018-02-16] MEDS ORDERED: Naloxone 0.4 MG/ML INJ IVP PRN (21:03)
--- NOTE | 2018-02-16 21:21 | Internal Med History&Physical ---
Date of Encounter: 02/16/18 Time of Encounter: 21:18 Internal Medicine - H&P: HPI Chief complaint: Shortness of breath Admitted From: Emergency Dept Plans for Post Hospital Care: Home History of present illness: Ms. Christian is a 57 year old female with a past medical history of COPD, GERD, diastolic heart failure with preserved ejection fraction. She presented to the emergency department for 1 day of worsening shortness of breath. On arrival she was found to be in moderate respiratory distress with an oxygen saturation of 82% on 3 L which is her home oxygen use. She was immediately given a DuoNeb treatment with improvement of her oxygen saturation to 97%. She was also found to have a fever of 102 and was given 1 dose of Tylenol. In the ED she was also started on 1 dose of vancomycin, Levaquin, Zosyn, Solu-Medrol and 2 L of fluids. Chest x-ray showed minimal bibasilar atelectasis without any focal consolidations or opacifications. Due to altered mentation the patient was also screened with a head CT which showed no acute process. ABG in the emergency department showed hypercapnic acidosis at 7.27 pH, 61 PCO2, 26 bicarbonate, 90 PO2. BiPAP was initiated. EKG revealed sinus tachycardia. On my exam the patient was no longer in respiratory distress and was saturating at 99% on BiPAP. Patient is a poor historian secondary to difficulty speaking on BiPAP and altered mental status. She does admit to difficulty breathing prior to coming in but denies increased sputum production or change in sputum color. She also denies chest pain or fever or chills. Past Med Surg Social Fam HX - Past Medical History Medical history: arthritis, COPD, GERD, osteoporosis, thyroid disease, other Additional medical history: bronchitis Psychiatric history: anxiety, bipolar, depression, previous psychiatric hospitalization - Past Surgical History Surgical History: other Additional surgical history: radioactive thyroid removal - Social History Smoking Status: Current every day smoker Smokeless Tobacco Status: No (not smoked for 4 days) Alcohol use: occasionally Drug use: none - Family History Mother Living Status: Hx Family Cancer: Yes Father Hx Family Respiratory Disorders: Yes Internal Medicine - H&P: Meds Escitalopram [Lexapro] 10 mg PO DAILY 11/01/15 [History] Levothyroxine [Synthroid] 88 mcg PO Q48H 11/27/15 [History] Atorvastatin Calcium [Lipitor] 20 mg PO HS 09/23/17 [History] Levothyroxine [Synthroid] 75 mcg PO Q48H 09/23/17 [History] Metoprolol [Lopressor] 25 mg PO BID 09/23/17 [History] Albuterol Sulfate [Proair Hfa] 2 puff IH Q4H PRN 01/21/18 [History] Fluticasone/Vilanterol [Breo Ellipta 100-25 Mcg INH] 1 puff IH DAILY 01/21/18 [ History] Ipratropium/Albuterol Neb [Duoneb] 3 ml IH Q4HR PRN 01/21/18 [History] PredniSONE [Deltasone] 20 mg PO QAM 5 Days #5 tablet 01/21/18 [Rx] Tiotropium [Spiriva] 18 mcg PO DAILY 01/21/18 [History] Cholecalciferol (D-3) [Vitamin D] 5,000 unit PO DAILY 02/16/18 [History] Lisinopril [Zestril] 10 mg PO DAILY 02/16/18 [History] Mirtazapine [Remeron] 15 mg PO DAILY 02/16/18 [History] 3 Allergy/AdvReac Type Severity Reaction Status Date / Time morphine AdvReac Hives Verified 09/23/17 00:38 All Systems PM: A 10-system review of systems was performed and is negative for pertinent findings except as documented above in the HPI. - Constitutional Constitutional: no chills, no fever(s) - Cardiovascular Cardiovascular ROS IM: dyspnea, no chest pain, no irregular heart rhythm - Respiratory Respiratory: cough, dyspnea, no excessive phlegm production, no change in phlegm color - Gastrointestinal Gastrointestinal: no abdominal pain - Genitourinary Genitourinary: no dysuria, no urinary frequency, no urinary incontinence - Neurological Neurological ROS: no abnormal speech, no focal weakness - Psychiatric Psychiatric: confusion - Constitutional Vitals: Temp Pulse Resp BP Pulse Ox 98.1 F 83 18 92/65 98 02/16/18 20:03 02/16/18 20:03 02/16/18 20:03 02/16/18 20:03 02/16/18 20:03 Exam: Patient in mild distress, alert, orientation is labile between 2 and 3 Cranial nerves II through XII intact Heart in regular rate and rhythm without murmur or gallop Lungs with good expansion and no accessory muscle use, no rales or rhonchi auscultated, possible wheeze but difficult to differentiate from upper bronchial sounds and BiPAP Abdomen soft and nontender with normal bowel sounds Bilateral lower extremities nonedematous Skin warm and dry Internal Med - H&P Results - Labs CBC & Chem 7: 02/16/18 17:20 02/16/18 16:18 - Assessment and plan (1) Acute respiratory failure with hypoxia and hypercapnia Current Visit: Yes Status: Acute Assessment and plan: Patient presented with hypoxia at 82% oxygen saturation on 3 L nasal cannula Oxygen saturation improved to 97% after 1 treatment of DuoNeb's and initiation of BiPAP Patient has history of COPD and uses 3 L at home She admits to cough but denies increased sputum production or change in sputum color She was febrile on admission but denies fever or chills at home Chest x-ray revealed bibasilar mild atelectasis without focal consolidation or opacification White count within normal limits, ABG revealed hypercapnic acidosis This is likely respiratory failure secondary to COPD exacerbation Differential includes pneumonia but clinically unlikely, lactic acid 0.9, patient does not meet sepsis criteria Plan BiPAP with continuous pulse oximetry Duonebs Q6h scheduled, Albuterol nebs Q2H PRN Prednisone 40mg PO Daily x 5 days Levofloxacin 750mg PO Daily x 5 days Repeat ABG in AM (2) COPD exacerbation Current Visit: Yes Status: Acute Assessment and plan: Plan as seen above (3) Heart failure with preserved ejection fraction Current Visit: No Status: Chronic Assessment and plan: Patient has remote history of echocardiogram in 2017 that revealed mild Diastolic dysfunction with preserved ejection fraction of 70-75% On this admission BNP was elevated to 300 however that appears to be her baseline from 3 previous labs back to 2016 Clinically patient is not in heart failure exacerbation, troponin <0.03, EKG sinus rhythm Plan Repeat BNP in AM Continue to monitor (4) Altered mental status Current Visit: Yes Status: Acute Assessment and plan: Patient presented with altered orientation Orientation is labile between 2 and 3 She is oriented to self and place but time and situation, and go This is likely secondary to hypoxia and hypercapnic acidosis Head CT performed at admission was negative for acute process We will continue to monitor as clinical disposition improved Qualifiers: Altered mental status type: disorientation Qualified Code(s): R41.0 - Disorientation, unspecified (5) Tobacco abuse Current Visit: No Status: Chronic Assessment and plan: Patient has chronic history of tobacco use Patient has been counseled in the past about smoking cessation We will repeat counseling once mentation is improved (6) DVT prophylaxis Current Visit: Yes Status: Acute Assessment and plan: 5000 units subcutaneous heparin every 8 hours - Time Spent With Patient Total time spent is greater than 50% in coordination of care (as documented) at patient's floor/unit and/or counseling patient:
[2018-02-16] MEDS: *HR* Heparin 5,000 UNIT/ML VIAL SQ SCH (22:00)
[2018-02-16] MEDS: 0.9 % Sodium Chloride 1,000 ML IVC SCH (22:01)
[2018-02-16] MEDS: Ipratropium/Albuterol Neb 3 ML IH SCH (22:33)
[2018-02-17] MEDS: Ipratropium/Albuterol Neb 3 ML IH SCH ×4 (04:37→22:16)
[2018-02-17 04:40] LABS: ABG Base Excess -1 mEq/L (-2 to 3); ABG HCO3 27 mEq/L (21-27); ABG Oxygen Saturation 96 % (95-98); ABG PCO2 55 mmHg (35-45); ABG PH 7.29 pH Units (7.32-7.45); ABG PO2 91 mmHg (85-104); ABG TCO2 28 mEq/L (20-26); Blood Gas PEEP 5 cm H2O
[2018-02-17 04:43] LABS: Basophils % 0.3 %; Hematocrit 34.3 % (35.3-44.9); Hemoglobin 10.8 g/dL (11.5-15.4); Immature Granulocytes % 0.6 % (0-4); Lymphocytes # 0.3 K/mcL (0.6-4.6); Mean Corpuscular HGB Conc 31.5 g/dL (31.6-35.5); Mean Corpuscular Hemoglobin 30.1 pg (28.0-33.3); Mean Corpuscular Volume 95.5 fL (83.0-100.0); Mean Platelet Volume 10.1 fL (9.4-12.4); Monocytes # 0.2 K/mcL (0.0-1.3); Monocytes % 5.2 %; Neutrophils # 2.8 K/mcL (1.6-8.9); Platelet Count 224 K/mcL (140-400); Red Blood Count 3.59 M/mcL (3.82-4.97); Red Cell Distribution Width 14.6 % (11.5-14.5); Segmented Neutrophils % 83.9 %
[2018-02-17 05:01] LABS: BUN/Creatinine Ratio 20 (6-26); Blood Urea Nitrogen 13 mg/dL (6-20); Calcium 9.1 mg/dL (8.6-10.3); Carbon Dioxide 24 mEq/L (23-29); Chloride 103 mEq/L (98-107); Glucose 135 mg/dL (70-105); Osmolality,Calculated 278 (280-300); Potassium 4.5 mEq/L (3.5-5.1); Sodium 133 mEq/L (136-145); eGFR For Non-African Americans > 60 (> 60)
[2018-02-17 05:09] LABS: Bilirubin,Urine Negative (Negative); Blood,Urine Negative (Negative); Clarity,Urine Clear (Clear); Color,Urine Yellow (Yellow); Glucose,Urine (UA) Normal (Normal); Ketones,Urine Negative (Negative); Leukocyte Esterase,Urine Negative (Negative); Nitrite,Urine Negative (Negative); Protein,Urine 30 mg/dL (Neg-Trace); Specific Gravity,Urine 1.018 (1.010-1.025); Urobilinogen,Urine Normal (Normal)
[2018-02-17 05:13] LABS: Bacteria,Urine None Seen per hpf (None-Few); Hyaline Casts,Urine None Seen per lpf (None-Few); Squamous Epithelial Cell,Urine Moderate per lpf (None-Few); WBC,Urine 0-3 per hpf (0-3)
[2018-02-17 05:31] LABS: Large Platelets Present (Not Present); Platelet Estimate Normal (Normal); Toxic Granulation Present (Not Present)
[2018-02-17] MEDS: *HR* Heparin 5,000 UNIT/ML VIAL SQ SCH ×3 (06:35→20:36)
[2018-02-17] MEDS ORDERED: predniSONE 20 MG TABLET PO SCH (09:00)
[2018-02-17] MEDS ORDERED: *HR* LORazepam 0.5 MG TABLET PO ONE (10:48)
--- NOTE | 2018-02-17 10:49 | Internal Med Progress Note ---
Hospitalist Progress Note - Encounter Date of Encounter: 02/17/18 Time of Encounter: 10:48 - Subjective Interval History: Notified by nurse that pt is extremely anxious this morning. She is confused off and oon. Seeing things that her not there. Pt requesting to have oxygen placed htough she is currently on 3L. Saturation on Monitor is reading 99%. Pt just had breathing treatment done. at bedside and states she does not normally get this anxious at home. Pt's last cigarette was Sat/Feb 12/Feb 13. - Exam Vitals: Temp Pulse Resp BP Pulse Ox 96.5 F L 70 16 125/89 97 02/17/18 07:02 02/17/18 07:02 02/17/18 10:27 02/17/18 07:02 02/17/18 10:27 Exam: Patient in mild distress and anxious, alert/orientation is labile between 2 and 3 Cranial nerves II through XII intact Heart in regular rate and rhythm without murmur or gallop Lungs wwith bilateral expiratory wheezes and some use of accessory muscles, no rales or rhonchi auscultated. Abdomen soft and nontender with normal bowel sounds Bilateral lower extremities non edematous Skin warm and dry - Assessment and Plan (1) Acute respiratory failure with hypoxia and hypercapnia Current Visit: Yes Status: Acute Assessment and Plan: Patient presented with hypoxia at 82% oxygen saturation on 3 L nasal cannulaon admission. Oxygen saturation improved to 97% after 1 treatment of DuoNeb's and initiation of BiPAP Patient has history of COPD and uses 3 L at home but states she only uses it when she feels she needs it She admits to cough but denies increased sputum production or change in sputum color She was febrile on admission but denies fever or chills at home Chest x-ray revealed bibasilar mild atelectasis without focal consolidation or opacification White count within normal limits, ABG revealed hypercapnic acidosis. This is likely respiratory failure secondary to COPD exacerbation Differential includes pneumonia but clinically unlikely, lactic acid 0.9, patient does not meet sepsis criteria Plan BiPAP with continuous pulse oximetry but pt keeps pulling off her BiPAP. Duonebs Q6h scheduled, Albuterol nebs Q2H PRN Prednisone 40mg PO Daily x 5 days Levofloxacin 750mg PO Daily x 5 days Repeat ABG in AM Seen by pulmonology service and agrees with above plan. (2) COPD exacerbation Current Visit: Yes Status: Acute Assessment and Plan: Duoneb Q6h scheduled and Q2 hr prn. Methylprednisolone 125 mg IV once. Prednisone 40 mg PO QD. (3) Heart failure with preserved ejection fraction Current Visit: No Status: Chronic Assessment and Plan: Patient has remote history of echocardiogram in 2017 that revealed mild Diastolic dysfunction with preserved ejection fraction of 70-75% On this admission BNP was elevated to 300 however that appears to be her baseline from 3 previous labs back to 2016 Clinically patient is not in heart failure exacerbation, troponin <0.03, EKG sinus rhythm on admission. Plan Repeat BNP in AM Continue to monitor Echocardiogram Impressions: Technically sub-optimal due to poor echocardiographic windows. Normal LV systolic function, LVEF 70-75%. Mild concentric left ventricular hypertrophy. Mild left ventricular diastolic dysfunction. Normal right ventricular structure and function. No significant valvular dysfunction. No evidence of pulmonary hypertension. Left Ventricular Wall Motion: Rest Echo Findings All wall segments showed normal motion. (4) Altered mental status Current Visit: Yes Status: Acute Assessment and Plan: Patient presented with altered orientation Orientation is labile between 2 and 3. She is oriented to self and place but time and situation, and go This is likely secondary to hypoxia and hypercapnic acidosis Head CT performed at admission was negative for acute process We will continue to monitor as clinical disposition improved (5) Tobacco abuse Current Visit: Yes Status: Chronic Assessment and Plan: Patient has chronic history of tobacco and continues to smoke. Patient has been counseled in the past about smoking cessation We will repeat counseling once mentation is improved (6) Anxiety Current Visit: Yes Status: Chronic DVT Prophylaxis: Heparin 5000 units subcutaneous every 8 hours - Summary of Assessment and Plan Summary of Assessment and Plan: Ms. Christian is a 57 year old female with a past medical history of COPD, GERD, diastolic heart failure with preserved ejection fraction. She presented to the emergency department for 1 day of worsening shortness of breath. On arrival she was found to be in moderate respiratory distress with an oxygen saturation of 82% on 3 L which is her home oxygen use. She was immediately given a DuoNeb treatment with improvement of her oxygen saturation to 97%. She was also found to have a fever of 102 and was given 1 dose of Tylenol. In the ED she was also started on 1 dose of vancomycin, Levaquin, Zosyn, Solu-Medrol and 2 L of fluids. Chest x-ray showed minimal bibasilar atelectasis without any focal consolidations or opacifications. Due to altered mentation the patient was also screened with a head CT which showed no acute process. ABG in the emergency department showed hypercapnic acidosis at 7.27 pH, 61 PCO2, 26 bicarbonate, 90 PO2. BiPAP was initiated. EKG revealed sinus tachycardia. Pt admits to curret smoking about 1/2 pack per day. - Time Spent with Patient Total time spent is greater than 50% in coordination of care (as documented) at patient's floor/unit and/or counseling patient: less than 15 minutes Plan of Care Discussed with: patient Internal Medicine: Result - Labs CBC & Chem 7: 02/17/18 04:29 02/17/18 04:29 Labs: Short CBC 02/17/18 Range/Units 04:29 WBC 3.3 L (4.3-11.1) K/mcL Hgb 10.8 L (11.5-15.4) g/dL Hct 34.3 L (35.3-44.9) % Plt Count 224 (140-400) K/mcL Neutrophils # 2.8 (1.6-8.9) K/mcL BMP 02/17/18 04:29 Sodium 133 L Potassium 4.5 Chloride 103 Carbon Dioxide 24 BUN 13 Creatinine 0.65 Glucose 135 H Calcium 9.1 Urine 02/17/18 Range/Units 04:50 Urine Color Yellow (Yellow) Urine Clarity Clear (Clear) Urine pH 6.0 (5.0-8.0) pH Units Ur Specific [place] 1.018 (1.010-1.025) Urine Protein 30 H (Neg-Trace) mg/dL Urine Glucose (UA) Normal (Normal) mg/dL - ABG Interpretation ABG results: ABG ABG pH 7.29 pH Units (7.32-7.45) L 02/17/18 04:36 ABG pCO2 55 mmHg (35-45) H 02/17/18 04:36 ABG pO2 91 mmHg (85-104) 02/17/18 04:36 ABG O2 Saturation 96 % (95-98) 02/17/18 04:36 Consult Discharge Plan - Plan Referrals: Z[facility],Luis Plunkett MD [Primary Care Provider] - (4) Altered mental status Qualifiers: Altered mental status type: disorientation Qualified Code(s): R41.0 - Disorientation, unspecified
[2018-02-17 11:22] LABS: ABG Base Excess -2 mEq/L (-2 to 3); ABG HCO3 26 mEq/L (21-27); ABG Oxygen Saturation 95 % (95-98); ABG PCO2 53 mmHg (35-45); ABG PH 7.29 pH Units (7.32-7.45); ABG PO2 84 mmHg (85-104); ABG TCO2 27 mEq/L (20-26)
[2018-02-17] MEDS: levoFLOXacin 750 MG TABLET PO SCH (11:38)
--- NOTE | 2018-02-17 11:40 | Pulmonology Consult Note ---
<Abel Warren W - Last Filed: 02/17/18 13:22> Date of Encounter: 02/17/18 Medications and Allergies Escitalopram [Lexapro] 10 mg PO DAILY 11/01/15 [History] Levothyroxine [Synthroid] 88 mcg PO Q48H 11/27/15 [History] Atorvastatin Calcium [Lipitor] 20 mg PO HS 09/23/17 [History] Levothyroxine [Synthroid] 75 mcg PO Q48H 09/23/17 [History] Metoprolol [Lopressor] 25 mg PO BID 09/23/17 [History] Albuterol Sulfate [Proair Hfa] 2 puff IH Q4H PRN 01/21/18 [History] Fluticasone/Vilanterol [Breo Ellipta 100-25 Mcg INH] 1 puff IH DAILY 01/21/18 [ History] Ipratropium/Albuterol Neb [Duoneb] 3 ml IH Q4HR PRN 01/21/18 [History] PredniSONE [Deltasone] 20 mg PO QAM 5 Days #5 tablet 01/21/18 [Rx] Tiotropium [Spiriva] 18 mcg PO DAILY 01/21/18 [History] Cholecalciferol (D-3) [Vitamin D] 5,000 unit PO DAILY 02/16/18 [History] Lisinopril [Zestril] 10 mg PO DAILY 02/16/18 [History] Mirtazapine [Remeron] 15 mg PO DAILY 02/16/18 [History] 3 Allergy/AdvReac Type Severity Reaction Status Date / Time morphine AdvReac Hives Verified 09/23/17 00:38 All Systems: The remainder of the systems were reviewed and are negative Physical Examination Vital Signs: Vital Signs, Last 4 Hours Temp Pulse Resp BP Pulse Ox 02/17/18 13:06 97.5 F L 90 19 133/80 97 02/17/18 10:27 16 97 Results - Laboratory Findings CBC and BMP: 02/17/18 04:29 02/17/18 04:29 ABG ABG pH 7.29 pH Units (7.32-7.45) L 02/17/18 11:00 ABG pCO2 53 mmHg (35-45) H 02/17/18 11:00 ABG pO2 84 mmHg (85-104) L 02/17/18 11:00 ABG O2 Saturation 95 % (95-98) 02/17/18 11:00 PT/INR, D-dimer D-Dimer 621 ng/mLFEU (0-500) H 02/17/18 11:17 Abnormal lab findings: Abnormal lab results WBC 3.3 K/mcL (4.3-11.1) L 02/17/18 04:29 RBC 3.59 M/mcL (3.82-4.97) L 02/17/18 04:29 Hgb 10.8 g/dL (11.5-15.4) L 02/17/18 04:29 Hct 34.3 % (35.3-44.9) L 02/17/18 04:29 MCHC 31.5 g/dL (31.6-35.5) L 02/17/18 04:29 RDW 14.6 % (11.5-14.5) H 02/17/18 04:29 Band Neutrophils % 36.0 % (0-4) H 02/16/18 17:20 Lymphocytes # 0.3 K/mcL (0.6-4.6) L 02/17/18 04:29 Toxic Granulation Present (Not Present) A 02/17/18 04:29 Large Platelets Present (Not Present) A 02/17/18 04:29 D-Dimer 621 ng/mLFEU (0-500) H 02/17/18 11:17 ABG pH 7.29 pH Units (7.32-7.45) L 02/17/18 11:00 ABG pCO2 53 mmHg (35-45) H 02/17/18 11:00 ABG pO2 84 mmHg (85-104) L 02/17/18 11:00 ABG Total CO2 27 mEq/L (20-26) H 02/17/18 11:00 Sodium 133 mEq/L (136-145) L 02/17/18 04:29 Glucose 135 mg/dL (70-105) H 02/17/18 04:29 Calculated Osmolality 278 (280-300) L 02/17/18 04:29 B-Natriuretic Peptide 280 pg/mL (Less than 100) H 02/17/18 04:29 Urine Protein 30 mg/dL (Neg-Trace) H 02/17/18 04:50 Urine Microscopic RBC 3-5 per hpf (0-3) H 02/17/18 04:50 Ur Squamous Epith Cells Moderate per lpf (None-Few) H 02/17/18 04:50 - Clinical Findings Intake & Output: Intake & Output 02/16/18 02/17/18 02/17/18 23:59 07:59 15:59 Intake Total 240 / 240 Balance 240 / 240 Consult Discharge Plan - Plan Referrals: [facility] [place],Luis Plunkett MD [Primary Care Provider] - - Attending Attestation I examined this patient and my medical decision-making was reviewed with the Resident Physician. I agree with the documented findings, disposition and treatment plan as described except to the extent set forth below. We independently had [id number] contact with the patient Patient seen and examined at bedside Labs, radiology, chart personally reviewed. Impression: Acute on chronic hypoxic hypercapnic respiratory failure COPD exacerbation Anxiety Tobacco abuse Recs: Blood gas stable today continue to use noninvasive ventilation as she is able to tolerate IV steroids and antibiotics have been given along with bronchodilators continue supplemental oxygen to keep saturation greater than 88 % around 92% Respiratory infection panel and sputum culture to be obtained She will need anxiolysis recommend Ativan 1 mg as needed Tobacco cessation counseling given to the patient and I reinforced that i is imperative that she stop smoking Okay to continue monitoring the patient on 2NE <Abad Chaudhry R - Last Filed: 02/17/18 16:43> Date of Encounter: 02/17/18 Time of Encounter: 01:05 Assessment and Plan (1) Acute respiratory failure with hypoxia and hypercapnia Current Visit: Yes Status: Acute Acute on chronic respiratory failure with hypoxia and hypercapnia. Patient does have significant emphysema at baseline. Requires supplemental oxygen at home. Patient is a current every day smoker. Respiratory failure related to COPD exacerbation and anxiety. We will obtain respiratory infection panel and sputum culture BiPAP will be useful as tolerated, especially while sleeping. 40 mg of IV Solu-Medrol every 8 hours Breathing treatments and pulmonary toilet Continue antibiotics for COPD exacerbation Recommend Ativan 1 mg for anxiety Patient will benefit from smoking cessation, this was discussed with the patient Blood gas reviewed and patient remained stable, okay to continue inpatient management on 2NE. (2) COPD exacerbation Current Visit: Yes Status: Acute COPD requiring supplemental oxygen use at baseline. Presenting with exacerbation and respiratory distress. Recommend continuation of COPD exacerbation therapy as outlined above. (3) Tobacco abuse Current Visit: Yes Status: Chronic Every day smoker with typical usage of one half pack daily. Patient will benefit from smoking cessation, this was discussed with the patient. (4) Anxiety Current Visit: Yes Status: Chronic Respiratory distress exacerbated by anxiety. History status did improve following 0.5 mg Ativan by primary team. Patient remains visibly anxious though. Recommend as needed anxiolytic likely 1 mg Ativan. History of Present Illness Consult date: 02/17/18 Requesting physician: Janette Calloway Reason for consult: dyspnea, COPD Chief complaint: shortness of breath History of present illness: Patient is a 57-year-old female history significant for smoking currently smokes one half pack per day. COPD with emphysema, requires 3.5 L NC oxygen at baseline. Patient reports that she was in the hospital 2 months ago for similar complaints. She developed shortness of breath 1 day prior to presentation. She has associated cough and sputum production. Reports fever at home prior to presentation. Shortness of breath progressed and she presented to ED for further evaluation. She was admitted has been given therapy for COPD exacerbation including antibiotics, steroids, and breathing treatments. After initial management she was feeling symptomatic improvement until This afternoon patient developed acute shortness of breath. This was believed to be anxiety related. She was trialed on BiPAP but reports poor tolerance of the BiPAP. She was given 0.5 mg Ativan and breathing subsequently stabilized. At present she reports improvement in shortness of breath. Denies chest pain, nausea, vomiting, dizziness. Past Med Surg Social Fam HX - Past Medical History Medical history: arthritis, COPD, GERD, osteoporosis, thyroid disease, other Additional medical history: bronchitis Psychiatric history: anxiety, bipolar, depression, previous psychiatric hospitalization - Past Surgical History Surgical History: other Additional surgical history: radioactive thyroid removal - Social History Smoking Status: Current every day smoker Smokeless Tobacco Status: No (not smoked for 4 days) Alcohol use: occasionally Drug use: none - Family History Mother Living Status: Hx Family Cancer: Yes Father Hx Family Respiratory Disorders: Yes All Systems: The remainder of the systems were reviewed and are negative - Constitutional Constitutional: fatigue - Cardiovascular Cardiovascular: dyspnea (Improved), dyspnea on exertion, no chest pain, no edema - Respiratory Respiratory: cough, dyspnea, no hemoptysis - Gastrointestinal Gastrointestinal: no abdominal pain, no diarrhea - Neurological Neurological: confusion - Psychiatric Psychiatric: anxiety Physical Examination Vital Signs: Vital Signs, Last 4 Hours Resp Pulse Ox 02/17/18 10:27 16 97 General appearance: no acute distress, agitated Eyes: nonicteric ENT: oropharynx moist Neck: supple, no lymphadenopathy Auscultation: bilateral: clear, diminished breath sounds Percussion: bilateral: not dull Cardiovascular: regular rate and rhythm Gastrointestinal: normoactive bowel sounds, soft, non-distended Integumentary: other (Small bruises bilateral upper extremities) Extremities: no cyanosis, no edema Musculoskeletal: no deformities Gait: normal posture normal mental status, non-focal exam anxious Results - Laboratory Findings CBC and BMP: 02/17/18 04:29 02/17/18 04:29 ABG ABG pH 7.29 pH Units (7.32-7.45) L 02/17/18 11:00 ABG pCO2 53 mmHg (35-45) H 02/17/18 11:00 ABG pO2 84 mmHg (85-104) L 02/17/18 11:00 ABG O2 Saturation 95 % (95-98) 02/17/18 11:00 Abnormal lab findings: Abnormal lab results WBC 3.3 K/mcL (4.3-11.1) L 02/17/18 04:29 RBC 3.59 M/mcL (3.82-4.97) L 02/17/18 04:29 Hgb 10.8 g/dL (11.5-15.4) L 02/17/18 04:29 Hct 34.3 % (35.3-44.9) L 02/17/18 04:29 MCHC 31.5 g/dL (31.6-35.5) L 02/17/18 04:29 RDW 14.6 % (11.5-14.5) H 02/17/18 04:29 Band Neutrophils % 36.0 % (0-4) H 02/16/18 17:20 Lymphocytes # 0.3 K/mcL (0.6-4.6) L 02/17/18 04:29 Toxic Granulation Present (Not Present) A 02/17/18 04:29 Large Platelets Present (Not Present) A 02/17/18 04:29 ABG pH 7.29 pH Units (7.32-7.45) L 02/17/18 11:00 ABG pCO2 53 mmHg (35-45) H 02/17/18 11:00 ABG pO2 84 mmHg (85-104) L 02/17/18 11:00 ABG Total CO2 27 mEq/L (20-26) H 02/17/18 11:00 Sodium 133 mEq/L (136-145) L 02/17/18 04:29 Glucose 135 mg/dL (70-105) H 02/17/18 04:29 Calculated Osmolality 278 (280-300) L 02/17/18 04:29 B-Natriuretic Peptide 280 pg/mL (Less than 100) H 02/17/18 04:29 Urine Protein 30 mg/dL (Neg-Trace) H 02/17/18 04:50 Urine Microscopic RBC 3-5 per hpf (0-3) H 02/17/18 04:50 Ur Squamous Epith Cells Moderate per lpf (None-Few) H 02/17/18 04:50
[2018-02-17] MEDS: 0.9 % Sodium Chloride 1,000 ML IVC SCH (16:08)
[2018-02-17] MEDS: MethylPREDNISolone 40 MG/ML VIAL IVP SCH (16:08)
[2018-02-17] MEDS: Acetaminophen 325 MG TABLET PO PRN (19:00)
[2018-02-17] MEDS: *HR* LORazepam 0.5 MG TABLET PO PRN (20:35)
[2018-02-18] MEDS: MethylPREDNISolone 40 MG/ML VIAL IVP SCH ×3 (00:20→15:51)
[2018-02-18] MEDS: *HR* LORazepam 0.5 MG TABLET PO PRN ×3 (03:32→21:55)
[2018-02-18] MEDS: Ipratropium/Albuterol Neb 3 ML IH SCH ×4 (03:47→20:57)
[2018-02-18] MEDS ORDERED: Isovue-370 500 ML INFUS..BTL IV ONE (06:06)
[2018-02-18] MEDS ORDERED: Albuterol Neb 7.5 MG, Sodium Chloride for inhalation 12 ML IH ONE (06:07)
--- NOTE | 2018-02-18 06:12 | Event Note ---
Date of Encounter: 02/18/18 Time of Encounter: 06:08 Called to see patient for severe respiratory distress, pulling off her BiPap, and inability to get comfortable. I reviewed her labs and reports, noting her D -Dimer is elevated. I assessed and examined patient. By the time I arrived, she was resting in bed but is audibly wheezing and coughing vigorously. She is unable to wear and will not wear BiPap. She has no CP now but she did earlier. Given her respiratory distress, elevated D-Dimer, and pleuritic CP, I am ordering a CTA chest to rule out PE. I suspect her respiratory distress is due to AECOPD, but I still worry about PE...thus the CTA chest. I also ordered a continuous albuterol aerosol right now.
[2018-02-18] MEDS: *HR* Heparin 5,000 UNIT/ML VIAL SQ SCH ×3 (06:26→21:55)
--- NOTE | 2018-02-18 07:32 | Pulmonology Progress Note ---
Date of Encounter: 02/18/18 Time of Encounter: 07:32 Assessment and Plan (1) Acute and chronic respiratory failure with hypoxia Current Visit: No Status: Acute Patient has evidence of hypoxia and hypercapnia. Has chronic CO2 retention secondary to her long-standing emphysema She has not tolerated BiPAP because of underlying claustrophobia and anxiety I do not believe that she is in jeopardy of significant decline if she does not continue BiPAP and so this time which is recommend supplemental oxygen to keep saturation greater than 88 to around 92% As COPD exacerbation resolves her gas exchange will also improve (2) Acute exacerbation of chronic obstructive airways disease Current Visit: No Status: Acute Would continue IV steroids today Continue schedule bronchodilators I have added Symbicort 160/4.52 puffs twice a day (3) Nicotine dependence with nicotine-induced disorder Current Visit: No Status: Chronic Tobacco cessation counseling given to the patient Qualifiers: Nicotine product type: cigarettes Qualified Code(s): F17.219 - Nicotine dependence, cigarettes, with unspecified nicotine-induced disorders (4) Community acquired pneumonia Current Visit: No Status: Acute Recommend continuation of treatment with Levaquin for a total of approximately 8 days based upon clinical course Sputum culture pending Qualifiers: Lung location: unspecified part of lung Qualified Code(s): J18.9 - Pneumonia, unspecified organism (5) Anxiety Current Visit: Yes Status: Chronic Appears to have chronic anxiety with use of benzodiazepine Schedule benzodiazepine and titrate for effect to help with work of breathing (6) Bronchiolitis Current Visit: Yes Status: Acute Patient has acute bronchiolitis which is likely secondary to infectious process she is on appropriate antibiotics she may benefit from formal speech/swallow evaluation I do recommend that the respiratory infection panel be sent off that his been ordered I anticipate gradual improvement over the next 24-48 hours and was follow peripherally at this time please call with any questions patient should have outpatient pulmonary follow-up at time of discharge taking for the consultation Subjective Principal diagnosis: AECOPD Interval history: Patient was noted to have intermittent periods of shortness of breath punctuated by anxiety. This prompted a CT angiogram to be performed early this morning which was negative for PE was indicative of bronchiolitis. When I examined the patient she was resting comfortably in bed denies any complaints except for some back pain. Objective PUL Vital signs: Last Vital Signs Temp 98.9 F 02/18/18 04:00 Pulse 100 02/18/18 04:00 Resp 28 02/18/18 04:00 BP 156/104 02/18/18 04:00 Pulse Ox 92 02/18/18 04:00 General appearance: no acute distress Eyes: nonicteric ENT: oropharynx moist Neck: supple Auscultation: bilateral: wheezes, rhonchi (scattered ) Cardiovascular: regular rate and rhythm Gastrointestinal: normoactive bowel sounds Integumentary: normal Extremities: no cyanosis, no edema, no clubbing Musculoskeletal: no deformities non-focal exam, pupils equal and round mood appropriate Results - Laboratory Findings CBC and BMP: 02/17/18 04:29 02/17/18 04:29 ABG ABG pH 7.29 pH Units (7.32-7.45) L 02/17/18 11:00 ABG pCO2 53 mmHg (35-45) H 02/17/18 11:00 ABG pO2 84 mmHg (85-104) L 02/17/18 11:00 ABG O2 Saturation 95 % (95-98) 02/17/18 11:00 PT/INR, D-dimer D-Dimer 621 ng/mLFEU (0-500) H 02/17/18 11:17 Abnormal lab findings: Abnormal lab results WBC 3.3 K/mcL (4.3-11.1) L 02/17/18 04:29 RBC 3.59 M/mcL (3.82-4.97) L 02/17/18 04:29 Hgb 10.8 g/dL (11.5-15.4) L 02/17/18 04:29 Hct 34.3 % (35.3-44.9) L 02/17/18 04:29 MCHC 31.5 g/dL (31.6-35.5) L 02/17/18 04:29 RDW 14.6 % (11.5-14.5) H 02/17/18 04:29 Band Neutrophils % 36.0 % (0-4) H 02/16/18 17:20 Lymphocytes # 0.3 K/mcL (0.6-4.6) L 02/17/18 04:29 Toxic Granulation Present (Not Present) A 02/17/18 04:29 Large Platelets Present (Not Present) A 02/17/18 04:29 D-Dimer 621 ng/mLFEU (0-500) H 02/17/18 11:17 ABG pH 7.29 pH Units (7.32-7.45) L 02/17/18 11:00 ABG pCO2 53 mmHg (35-45) H 02/17/18 11:00 ABG pO2 84 mmHg (85-104) L 02/17/18 11:00 ABG Total CO2 27 mEq/L (20-26) H 02/17/18 11:00 Sodium 133 mEq/L (136-145) L 02/17/18 04:29 Glucose 135 mg/dL (70-105) H 02/17/18 04:29 Calculated Osmolality 278 (280-300) L 02/17/18 04:29 B-Natriuretic Peptide 280 pg/mL (Less than 100) H 02/17/18 04:29 Urine Protein 30 mg/dL (Neg-Trace) H 02/17/18 04:50 Urine Microscopic RBC 3-5 per hpf (0-3) H 02/17/18 04:50 Ur Squamous Epith Cells Moderate per lpf (None-Few) H 02/17/18 04:50 - Diagnostic Findings CT scan - chest: report reviewed, image reviewed - Clinical Findings Intake & Output: Intake & Output 02/17/18 02/17/18 02/18/18 15:59 23:59 07:59 Intake Total 1240 / 1240 0 / 0 Output Total 0 / 0 Balance 1240 / 1240 0 / 0 Weight 48 kg Consult Discharge Plan - Plan Referrals: Zari,Luis Plunkett MD [Primary Care Provider] -
[2018-02-18] MEDS: levoFLOXacin 750 MG TABLET PO SCH (08:27)
[2018-02-18] MEDS: Budesonide/Formoterol 160/4.5 1 PUFF INH IH SCH ×2 (10:04→20:55)
[2018-02-18 15:59] LABS: Adenovirus Not Detected (Not Detect); Bordetella Pertussis Not Detected (Not Detect); Chlamydophila pneumoniae Not Detected (Not Detect); Coronavirus 229E Not Detected (Not Detect); Coronavirus HKU1 Not Detected (Not Detect); Coronavirus NL63 Not Detected (Not Detect); Coronavirus OC43 Not Detected (Not Detect); Human Metapneumovirus Not Detected (Not Detect); Human Rhinovirus/Enterovirus Not Detected (Not Detect); Influenza A Subtype 2009 H1 Not Detected (Not Detect); Influenza A Untypeable Not Detected (Not Detect); Influenza B Not Detected (Not Detect); Mycoplasma pneumoniae Not Detected (Not Detect); Parainfluenza Virus 1 Not Detected (Not Detect); Parainfluenza Virus 2 Not Detected (Not Detect); Parainfluenza Virus 3 Not Detected (Not Detect); Parainfluenza Virus 4 Not Detected (Not Detect); Respiratory Syncytial Virus Not Detected (Not Detect)
--- NOTE | 2018-02-18 17:19 | Internal Med Progress Note ---
Hospitalist Progress Note - Encounter Date of Encounter: 02/18/18 Time of Encounter: 09:30 - Subjective Interval History: patient was seen adn examiend at bedside. reports that she could not keep the bipap on last night and it "kept falling off." she reports that it made her claustrophobic. reports that her SOB has improved as compared to yesterday. denies fever, chills , N/V/D, Chest pain, SOB tolerating diet, denies pain. - Exam Vitals: Temp Pulse Resp BP Pulse Ox 97.8 F 83 15 162/110 98 02/18/18 16:49 02/18/18 16:49 02/18/18 16:49 02/18/18 16:49 02/18/18 16:49 Exam: General: Patient is alert, oriented, no acute distress, thin Head: atraumatic, normocephalic, Eye: normal appearance, PERRL, no scleral icterus, no conjunctival injection ENT: mucous membranes moist, normal external ear exam Neck: normal inspection, trachea midline, full ROM, no carotid bruits Chest: normadecreased breath sounds bilaterally, has occasional wheezing, occasional crackles in clary posterior lung alejandre Cardiovascular: Regular rate and rhythm. s1 and s2 No clicks, rubs, gallops, or murmors. Abdomen: Bowel sounds present normoactive x-4 quadrants. Abdomen is soft, nondistended. no Epigastric tenderness. No guarding or rebound. No organomegaly noted, obese musculoskeletal: Spontaneously moving all extremities. no edema, no calf tenderness Skin: warm, dry, intact. Neuro: Alert and oriented x3 ( but it fluctuates) Sensation light touch intact. Cranial nerves 2-12 is intact. no focal deficit - Assessment and Plan (1) Acute respiratory failure with hypoxia and hypercapnia Current Visit: Yes Status: Acute Assessment and Plan: evidence of hypoxia and hypercapnia. most likely secondary to long-standing emphysema She has not tolerated BiPAP because of underlying claustrophobia and anxiety- pulmonology on board- recommended supplemental oxygen to keep saturation greater than 88 to around 92% (2) COPD exacerbation Current Visit: Yes Status: Acute Assessment and Plan: Symbicort 160/4.52 puffs twice a day solumedrol 40 mg Q8H IV - will taper continue duo neb continue levaquin (3) Anxiety Current Visit: Yes Status: Chronic Assessment and Plan: ativan 0.5 mg Q8H PRN hold for respiratory rate <12 adn saturation <92% (4) Tobacco abuse Current Visit: Yes Status: Chronic Assessment and Plan: Patient has chronic history of tobacco and continues to smoke. counseled about smoking cessation (5) Altered mental status Current Visit: Yes Status: Acute Assessment and Plan: Orientation is labile between 2 and 3. She is oriented to self and place but time and situation, and go This is likely secondary to hypoxia and hypercapnic acidosis Head CT performed at admission was negative for acute process will continue redirection (6) Heart failure with preserved ejection fraction Current Visit: No Status: Chronic Assessment and Plan: Patient has remote history of echocardiogram in 2017 that revealed mild Diastolic dysfunction with preserved ejection fraction of 70-75% On this admission BNP was elevated to 300 however that appears to be her baseline from 3 previous labs back to 2016 Clinically patient is not in heart failure exacerbation, troponin <0.03, EKG sinus rhythm on admission. will continue to monitor will continue home medications once confirmed Echocardiogram Impressions: Technically sub-optimal due to poor echocardiographic windows. Normal LV systolic function, LVEF 70-75%. Mild concentric left ventricular hypertrophy. Mild left ventricular diastolic dysfunction. Normal right ventricular structure and function. No significant valvular dysfunction. No evidence of pulmonary hypertension. Left Ventricular Wall Motion: Rest Echo Findings All wall segments showed normal motion. (7) DVT prophylaxis Current Visit: Yes Status: Acute Assessment and Plan: heparin sc - Time Spent with Patient Total time spent is greater than 50% in coordination of care (as documented) at patient's floor/unit and/or counseling patient: Internal Medicine: Result - Labs CBC & Chem 7: 02/17/18 04:29 02/17/18 04:29 - ABG Interpretation ABG results: ABG ABG pH 7.29 pH Units (7.32-7.45) L 02/17/18 11:00 ABG pCO2 53 mmHg (35-45) H 02/17/18 11:00 ABG pO2 84 mmHg (85-104) L 02/17/18 11:00 ABG O2 Saturation 95 % (95-98) 02/17/18 11:00 PT/INR, D-dimer D-Dimer 621 ng/mLFEU (0-500) H 02/17/18 11:17 - Impressions Impressions Chest CTA 02/18/18 06:06 IMPRESSION: 1. No findings of pulmonary embolism. 2. Increased now diffuse tree-in-bud opacities in each lung, likely infectious bronchiolitis. Aspiration is considered less likely given the distribution but could be possible given retained material in the esophagus. 3. Minimal to mild bronchial wall thickening with patchy airway secretions, suggesting bronchitis. Aspiration could result in a similar appearance. D/ / Raymundo Kaufman MD / Raymundo Kaufman MD Interpreting Provider: Raymundo Kaufman MD Consult Discharge Plan - Plan Referrals: chica,Luis Plunkett MD [Primary Care Provider] - (5) Altered mental status Qualifiers: Altered mental status type: disorientation Qualified Code(s): R41.0 - Disorientation, unspecified
[2018-02-18] MEDS: amLODIPine 5 MG TABLET PO SCH (18:00)
--- NOTE | 2018-02-18 18:13 | Electrocardiograph Report ---
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
--- NOTE | 2018-02-18 18:29 | Electrocardiograph Report ---
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
[2018-02-19] MEDS: MethylPREDNISolone 40 MG/ML VIAL IVP SCH ×3 (01:23→18:48)
[2018-02-19] MEDS: Ipratropium/Albuterol Neb 3 ML IH SCH ×4 (03:42→21:53)
[2018-02-19] MEDS: *HR* LORazepam 0.5 MG TABLET PO PRN ×2 (06:04→20:25)
[2018-02-19] MEDS: *HR* Heparin 5,000 UNIT/ML VIAL SQ SCH ×3 (06:04→20:26)
[2018-02-19] MEDS: Albuterol 2.5 MG/3 ML NEBULIZER IH PRN (07:40)
[2018-02-19 08:20] LABS: BUN/Creatinine Ratio 39 (6-26); Blood Urea Nitrogen 27 mg/dL (6-20); Carbon Dioxide 27 mEq/L (23-29); Chloride 106 mEq/L (98-107); Glucose 104 mg/dL (70-105); Hematocrit 33.5 % (35.3-44.9); Hemoglobin 10.5 g/dL (11.5-15.4); Mean Corpuscular HGB Conc 31.3 g/dL (31.6-35.5); Mean Corpuscular Hemoglobin 30.1 pg (28.0-33.3); Mean Platelet Volume 10.3 fL (9.4-12.4); Osmolality,Calculated 291 (280-300); Platelet Count 305 K/mcL (140-400); Potassium 4.1 mEq/L (3.5-5.1); Red Blood Count 3.49 M/mcL (3.82-4.97); Red Cell Distribution Width 14.9 % (11.5-14.5); Sodium 138 mEq/L (136-145); eGFR For Non-African Americans > 60 (> 60)
[2018-02-19] MEDS: levoFLOXacin 750 MG TABLET PO SCH (09:38)
[2018-02-19] MEDS: amLODIPine 5 MG TABLET PO SCH (09:38)
[2018-02-19] MEDS: Budesonide/Formoterol 160/4.5 1 PUFF INH IH SCH ×2 (10:26→21:53)
--- NOTE | 2018-02-19 11:12 | Internal Med Progress Note ---
Hospitalist Progress Note - Encounter Date of Encounter: 02/19/18 Time of Encounter: 08:30 - Subjective Interval History: patient was seen and examined at bedside. Is glad that she does not have to wear the BiPAP as it made her claustrophobic. Breathing has improved. denies fever, chills, N/V/D, Chest pain, SOB tolerating diet, denies pain. - Exam Vitals: Temp Pulse Resp BP Pulse Ox 97.4 F L 82 22 154/95 100 02/19/18 08:32 02/19/18 08:32 02/19/18 10:29 02/19/18 08:32 02/19/18 10:29 Exam: General: Patient is alert, oriented, no acute distress, thin Head: atraumatic, normocephalic, Eye: normal appearance, PERRL, no scleral icterus, no conjunctival injection ENT: mucous membranes moist, normal external ear exam Neck: normal inspection, trachea midline, full ROM, no carotid bruits Chest: normadecreased breath sounds bilaterally, has occasional wheezing, occasional crackles in clary posterior lung alejandre Cardiovascular: Regular rate and rhythm. s1 and s2 No clicks, rubs, gallops, or murmors. Abdomen: Bowel sounds present normoactive x-4 quadrants. Abdomen is soft, nondistended. no Epigastric tenderness. No guarding or rebound. No organomegaly noted, obese musculoskeletal: Spontaneously moving all extremities. no edema, no calf tenderness Skin: warm, dry, intact. Neuro: Alert and oriented x3 ( but it fluctuates) Sensation light touch intact. Cranial nerves 2-12 is intact. no focal deficit - Assessment and Plan (1) Acute respiratory failure with hypoxia and hypercapnia Current Visit: Yes Status: Acute Assessment and Plan: evidence of hypoxia and hypercapnia. most likely secondary to long-standing emphysema She has not tolerated BiPAP because of underlying claustrophobia and anxiety- pulmonology on board- recommended supplemental oxygen to keep saturation greater than 88 to around 92% (2) COPD exacerbation Current Visit: Yes Status: Acute Assessment and Plan: Symbicort 160/4.52 puffs twice a day solumedrol IV- tapering continue duo neb continue levaquin (3) Anxiety Current Visit: Yes Status: Chronic Assessment and Plan: ativan 0.5 mg Q8H PRN hold for respiratory rate <12 adn saturation <92% escitalopram 10 mg Po daily as per nursing staff still feels anxious at times- psych consulted for further recommendations (4) Tobacco abuse Current Visit: Yes Status: Chronic Assessment and Plan: Patient has chronic history of tobacco and continues to smoke. counseled about smoking cessation (5) Altered mental status Current Visit: Yes Status: Acute Assessment and Plan: Orientation is labile between 2 and 3- it has improved since admission She is oriented to self and place but time and situation This is likely secondary to hypoxia and hypercapnic acidosis Head CT performed at admission was negative for acute process will continue redirection (6) Heart failure with preserved ejection fraction Current Visit: No Status: Chronic Assessment and Plan: Patient has remote history of echocardiogram in 2017 that revealed mild Diastolic dysfunction with preserved ejection fraction of 70-75% On this admission BNP was elevated to 300 however that appears to be her baseline from 3 previous labs back to 2016 Clinically patient is not in heart failure exacerbation, troponin <0.03, EKG sinus rhythm on admission. started on spironolactone 12.5 mg daily as she has chronically elevated BNP and Diastolic CHF on amlodipine 5 mg daily continue to monitor BP Echocardiogram 2017 Impressions: Technically sub-optimal due to poor echocardiographic windows. Normal LV systolic function, LVEF 70-75%. Mild concentric left ventricular hypertrophy. Mild left ventricular diastolic dysfunction. Normal right ventricular structure and function. No significant valvular dysfunction. No evidence of pulmonary hypertension. Left Ventricular Wall Motion: Rest Echo Findings All wall segments showed normal motion. (7) DVT prophylaxis Current Visit: Yes Status: Acute Assessment and Plan: heparin sc - Time Spent with Patient Total time spent is greater than 50% in coordination of care (as documented) at patient's floor/unit and/or counseling patient: Internal Medicine: Result - Labs CBC & Chem 7: 02/19/18 06:46 02/19/18 06:46 Labs: Short CBC 02/19/18 Range/Units 06:46 WBC 7.4 D (4.3-11.1) K/mcL Hgb 10.5 L (11.5-15.4) g/dL Hct 33.5 L (35.3-44.9) % Plt Count 305 (140-400) K/mcL BMP 02/19/18 06:46 Sodium 138 Potassium 4.1 Chloride 106 Carbon Dioxide 27 BUN 27 H Creatinine 0.69 Glucose 104 Calcium 10.0 - ABG Interpretation ABG results: ABG ABG pH 7.29 pH Units (7.32-7.45) L 02/17/18 11:00 ABG pCO2 53 mmHg (35-45) H 02/17/18 11:00 ABG pO2 84 mmHg (85-104) L 02/17/18 11:00 ABG O2 Saturation 95 % (95-98) 02/17/18 11:00 PT/INR, D-dimer D-Dimer 621 ng/mLFEU (0-500) H 02/17/18 11:17 Consult Discharge Plan - Plan Referrals: Zari,Luis Plunkett MD [Primary Care Provider] - (5) Altered mental status Qualifiers: Altered mental status type: disorientation Qualified Code(s): R41.0 - Disorientation, unspecified
[2018-02-19] MEDS: Spironolactone 25 MG TABLET PO SCH (13:03)
[2018-02-19] MEDS ORDERED: *HR* LORazepam 2 MG/ML VIAL IVP ONE (20:47)
[2018-02-20] MEDS: Ipratropium/Albuterol Neb 3 ML IH SCH ×4 (04:42→21:35)
[2018-02-20] MEDS: *HR* Heparin 5,000 UNIT/ML VIAL SQ SCH ×3 (05:12→21:25)
[2018-02-20] MEDS: MethylPREDNISolone 40 MG/ML VIAL IVP SCH (05:12)
[2018-02-20] MEDS: *HR* LORazepam 2 MG/ML VIAL IVP PRN ×3 (05:12→21:11)
[2018-02-20] MEDS: Spironolactone 25 MG TABLET PO SCH (09:43)
[2018-02-20] MEDS: amLODIPine 5 MG TABLET PO SCH (09:44)
[2018-02-20] MEDS: levoFLOXacin 750 MG TABLET PO SCH (09:44)
[2018-02-20] MEDS: Budesonide/Formoterol 160/4.5 1 PUFF INH IH SCH ×2 (10:45→21:36)
[2018-02-20] MEDS: Albuterol 2.5 MG/3 ML NEBULIZER IH PRN (10:45)
[2018-02-20] MEDS: predniSONE 20 MG TABLET PO SCH (11:12)
--- NOTE | 2018-02-20 11:59 | Consult Note ---
Date of Encounter: 02/20/18 Time of Encounter: 11:50 Assessment & Recommendation (1) Depression with anxiety Current visit: No Status: Acute History of Present Illness Patient: new to practice Requesting Physician: Luda Babb MD Reason for consult: Anxiety, Depression History of present illness: Ms. Christian is a 57 year old female the patient was seen on 02/19/2018 but the note could not be entered, until 02/20/2018. CC: Anxiety HPI: The patient was seen in to [facility]. She was minimally cooperative with the interview. Her of 17 years was there to provide additional history. He reports the patient had significant anxiety and she noted anxiety. The patient has had a thyroidectomy. And the patient was treated with an anti-anxiety but was taken off because she has severe COPD today. She is being seen for respiratory problems and is not talking much that the repeat breathing mask she does appear anxious. The patient had an only son who . This may have contributed significantly to her anxiety and depression currently shes being treated with Lexapro. DX: 41.0 Panic Disorder Recommendations: At this point patients with COPD can be treated but benzodiazepines as written. But benzodiazepines could be avoided by using gabapentin, baclofen and other medicines. In this case the patient is not eating and may not be sleeping. Continue lexapro Start 7.5 mg QHS increasing to 15 mg QHS. The patient could also be considered for Seroquel, if mirtazepine is not helpful. It can be started at night (e.g. 12.5 mg or 25 mg qhs). I will follow with you through tomorrow. CC: Luda Babb MD Past Med Surg Social Fam HX - Past Medical History Medical history: arthritis, COPD, GERD, osteoporosis, thyroid disease, other - Past Psychiatric History Psychiatric history: Reports: anxiety - Past Surgical History Surgical History: other - Social History Smoking Status: Current every day smoker Smokeless Tobacco Status: No (not smoked for 4 days) Alcohol use: occasionally Drug use: none - Family History Mother Living Status: Hx Family Cancer: Yes Father Hx Family Respiratory Disorders: Yes Medications & Allergies Escitalopram [Lexapro] 10 mg PO DAILY 11/01/15 [History] Levothyroxine [Synthroid] 88 mcg PO Q48H 11/27/15 [History] Atorvastatin Calcium [Lipitor] 20 mg PO HS 09/23/17 [History] Levothyroxine [Synthroid] 75 mcg PO Q48H 09/23/17 [History] Metoprolol [Lopressor] 25 mg PO BID 09/23/17 [History] Albuterol Sulfate [Proair Hfa] 2 puff IH Q4H PRN 01/21/18 [History] Fluticasone/Vilanterol [Breo Ellipta 100-25 Mcg INH] 1 puff IH DAILY 01/21/18 [ History] Ipratropium/Albuterol Neb [Duoneb] 3 ml IH Q4HR PRN 01/21/18 [History] PredniSONE [Deltasone] 20 mg PO QAM 5 Days #5 tablet 01/21/18 [Rx] Tiotropium [Spiriva] 18 mcg PO DAILY 01/21/18 [History] Cholecalciferol (D-3) [Vitamin D] 5,000 unit PO DAILY 02/16/18 [History] Lisinopril [Zestril] 10 mg PO DAILY 02/16/18 [History] Mirtazapine [Remeron] 15 mg PO DAILY 02/16/18 [History] 3 Allergy/AdvReac Type Severity Reaction Status Date / Time morphine AdvReac Hives Verified 09/23/17 00:38 Review of Systems Psychiatric: Reports: anxiety, abnormal sleep pattern, panic attacks Psychiatry Exam - Constitutional Vitals: Temp Pulse Resp BP Pulse Ox 97.7 F 84 20 156/99 97 02/20/18 10:56 02/20/18 10:56 02/20/18 10:56 02/20/18 10:56 02/20/18 10:56 General appearance: age & developmentally appropriate, well-groomed, thin - Musculoskeletal Gait: slow Strength & Tone: normal for patient - Psychiatric Patient Orientation: Yes Person, Yes Time, Yes Place Level of alertness: Alert Behavior: withdrawn Psychomotor activity: Slowed Eye Contact: Minimal Contact Mood Description: Anxious Affect description: anxious Speech Volume: Soft/Quiet, Whispering Speech pattern: normal rate Language & Vocabulary: consistent with education Thought Process: Intact Thought Content: Yes Intact Perceptual Disturbances: No Auditory hallucinations, No Visual hallucinations Attention Span Ability: Capable of Sustained Attention Memory Description: Grossly Intact Patient Reliability: Reliable Historian Judgment: Limited Insight: Minimal Results - Labs Labs: Laboratory Last Values WBC 7.4 K/mcL (4.3-11.1) D 02/19/18 06:46 RBC 3.49 M/mcL (3.82-4.97) L 02/19/18 06:46 Hgb 10.5 g/dL (11.5-15.4) L 02/19/18 06:46 Hct 33.5 % (35.3-44.9) L 02/19/18 06:46 MCV 96.0 fL (83.0-100.0) 02/19/18 06:46 MCH 30.1 pg (28.0-33.3) 02/19/18 06:46 MCHC 31.3 g/dL (31.6-35.5) L 02/19/18 06:46 RDW 14.9 % (11.5-14.5) H 02/19/18 06:46 Plt Count 305 K/mcL (140-400) 02/19/18 06:46 MPV 10.3 fL (9.4-12.4) 02/19/18 06:46 Immature Gran % 0.6 % (0-4) 02/17/18 04:29 Seg Neutrophils % 83.9 % 02/17/18 04:29 Band Neutrophils % 36.0 % (0-4) H 02/16/18 17:20 Lymphocytes % 10.0 % 02/17/18 04:29 Monocytes % 5.2 % 02/17/18 04:29 Eosinophils % 0.0 % 02/17/18 04:29 Basophils % 0.3 % 02/17/18 04:29 Neutrophils # 2.8 K/mcL (1.6-8.9) 02/17/18 04:29 Lymphocytes # 0.3 K/mcL (0.6-4.6) L 02/17/18 04:29 Monocytes # 0.2 K/mcL (0.0-1.3) 02/17/18 04:29 Eosinophils # 0.0 K/mcL (0.0-0.6) 02/17/18 04:29 Basophils # 0.0 K/mcL (0.0-0.2) 02/17/18 04:29 Toxic Granulation Present (Not Present) A 02/17/18 04:29 Platelet Estimate Normal (Normal) 02/17/18 04:29 Large Platelets Present (Not Present) A 02/17/18 04:29 D-Dimer 621 ng/mLFEU (0-500) H 02/17/18 11:17 Sample Site R Radial 02/17/18 11:00 ABG pH 7.29 pH Units (7.32-7.45) L 02/17/18 11:00 ABG pCO2 53 mmHg (35-45) H 02/17/18 11:00 ABG pO2 84 mmHg (85-104) L 02/17/18 11:00 ABG HCO3 26 mEq/L (21-27) 02/17/18 11:00 ABG Total CO2 27 mEq/L (20-26) H 02/17/18 11:00 ABG O2 Saturation 95 % (95-98) 02/17/18 11:00 ABG Base Excess -2 mEq/L (-2 to 3) 02/17/18 11:00 Harvey Test N/A 02/16/18 18:18 O2 Delivery Device Cannula 02/17/18 11:00 Inspired O2 36.0 (1-15=lpm [id number]%) 02/17/18 11:00 PEEP 5 cm H2O 02/17/18 04:36 Pressure Support 5 cm H2O 02/16/18 18:18 Sodium 138 mEq/L (136-145) 02/19/18 06:46 Potassium 4.1 mEq/L (3.5-5.1) 02/19/18 06:46 Chloride 106 mEq/L (98-107) 02/19/18 06:46 Carbon Dioxide 27 mEq/L (23-29) 02/19/18 06:46 BUN 27 mg/dL (6-20) H 02/19/18 06:46 Creatinine 0.69 mg/dL (0.60-1.20) 02/19/18 06:46 Est GFR ( Amer) > 60 (> 60) 02/19/18 06:46 Est GFR (Non-Af Amer) > 60 (> 60) 02/19/18 06:46 BUN/Creatinine Ratio 39 (6-26) H 02/19/18 06:46 Glucose 104 mg/dL (70-105) 02/19/18 06:46 Calculated Osmolality 291 (280-300) 02/19/18 06:46 Lactic Acid 0.9 mmol/L (0.5-2.2) 02/16/18 16:52 Calcium 10.0 mg/dL (8.6-10.3) 02/19/18 06:46 Troponin I < 0.03 ng/mL (< 0.04) 02/16/18 16:18 B-Natriuretic Peptide 280 pg/mL (Less than 100) H 02/17/18 04:29 Urine Color Yellow (Yellow) 02/17/18 04:50 Urine Clarity Clear (Clear) 02/17/18 04:50 Urine pH 6.0 pH Units (5.0-8.0) 02/17/18 04:50 Ur Specific [place] 1.018 (1.010-1.025) 02/17/18 04:50 Urine Protein 30 mg/dL (Neg-Trace) H 02/17/18 04:50 Urine Glucose (UA) Normal mg/dL (Normal) 02/17/18 04:50 Urine Ketones Negative mg/dL (Negative) 02/17/18 04:50 Urine Blood Negative (Negative) 02/17/18 04:50 Urine Nitrite Negative (Negative) 02/17/18 04:50 Urine Bilirubin Negative (Negative) 02/17/18 04:50 Urine Urobilinogen Normal mg/dL (Normal) 02/17/18 04:50 Ur Leukocyte Esterase Negative (Negative) 02/17/18 04:50 Urine Microscopic RBC 3-5 per hpf (0-3) H 02/17/18 04:50 Urine Microscopic WBC 0-3 per hpf (0-3) 02/17/18 04:50 Ur Squamous Epith Cells Moderate per lpf (None-Few) H 02/17/18 04:50 Urine Bacteria None Seen per hpf (None-Few) 02/17/18 04:50 Hyaline Casts None Seen per lpf (None-Few) 02/17/18 04:50 Ur Culture Indicated? NO (NO) 02/17/18 04:50 Chlamy pneumoniae PCR Not Detected (Not Detect) 02/18/18 14:22 Adenovirus (PCR) Not Detected (Not Detect) 02/18/18 14:22 B. pertussis DNA (PCR) Not Detected (Not Detect) 02/18/18 14:22 B.parapertussis DNA PCR Not Detected (Not Detect) 02/18/18 14:22 Coronavirus OC43 (PCR) Not Detected (Not Detect) 02/18/18 14:22 Coronavirus HKU1 (PCR) Not Detected (Not Detect) 02/18/18 14:22 Coronavirus 229E (PCR) Not Detected (Not Detect) 02/18/18 14:22 Coronavirus NL63 (PCR) Not Detected (Not Detect) 02/18/18 14:22 Human Metapneumovir PCR Not Detected (Not Detect) 02/18/18 14:22 Influenza A (H1) PCR Not Detected (Not Detect) 02/18/18 14:22 Influ A (H1N1/09) PCR Not Detected (Not Detect) 02/18/18 14:22 Influenza A (H3) PCR Not Detected (Not Detect) 02/18/18 14:22 Influenza A Untype (PCR) Not Detected (Not Detect) 02/18/18 14:22 Influenza Type B (PCR) Not Detected (Not Detect) 02/18/18 14:22 M.pneumoniae DNA (PCR) Not Detected (Not Detect) 02/18/18 14:22 Parainfluenza 1 (PCR) Not Detected (Not Detect) 02/18/18 14:22 Parainfluenza 2 (PCR) Not Detected (Not Detect) 02/18/18 14:22 Parainfluenza 3 (PCR) Not Detected (Not Detect) 02/18/18 14:22 Parainfluenza 4 (PCR) Not Detected (Not Detect) 02/18/18 14:22 RSV (PCR) Not Detected (Not Detect) 02/18/18 14:22 Entero/Rhino (PCR) Not Detected (Not Detect) 02/18/18 14:22 Consult Discharge Plan - Plan Referrals: Zari,Luis Plunkett MD [Primary Care Provider] -
--- NOTE | 2018-02-20 18:13 | Internal Med Progress Note ---
Hospitalist Progress Note - Encounter Date of Encounter: 02/20/18 Time of Encounter: 08:00 - Subjective Interval History: patient was seen and examined at bedside. Breathing has improved. denies fever, chills, N/V/D, Chest pain, SOB tolerating diet, denies pain. - Exam Vitals: Temp Pulse Resp BP Pulse Ox 98.1 F 81 16 132/85 96 02/20/18 15:55 02/20/18 15:55 02/20/18 15:55 02/20/18 15:55 02/20/18 15:55 Exam: General: Patient is alert, oriented, no acute distress, thin , speaks in full sentences Head: atraumatic, normocephalic, Eye: normal appearance, PERRL, no scleral icterus, no conjunctival injection ENT: mucous membranes moist, normal external ear exam Neck: normal inspection, trachea midline, full ROM, no carotid bruits Chest: normadecreased breath sounds bilaterally, has occasional wheezing, occasional crackles in the posterior lung alejandre - improved Cardiovascular: Regular rate and rhythm. s1 and s2 No clicks, rubs, gallops, or murmors. Abdomen: Bowel sounds present normoactive x-4 quadrants. Abdomen is soft, nondistended. no Epigastric tenderness. No guarding or rebound. No organomegaly noted musculoskeletal: Spontaneously moving all extremities. no edema, no calf tenderness Skin: warm, dry, intact. Neuro: Alert and oriented x3 ( but it fluctuates) Sensation light touch intact. Cranial nerves 2-12 is intact. no focal deficit - Assessment and Plan (1) Acute respiratory failure with hypoxia and hypercapnia Current Visit: Yes Status: Acute Assessment and Plan: evidence of hypoxia and hypercapnia. most likely secondary to long-standing emphysema She has not tolerated BiPAP because of underlying claustrophobia and anxiety- pulmonology on board- recommended supplemental oxygen to keep saturation greater than 88 to around 92% (2) COPD exacerbation Current Visit: Yes Status: Acute Assessment and Plan: Symbicort 160/4.52 puffs twice a day switched to PO sterooids will continue to taper continue duo neb continue levaquin (3) Anxiety Current Visit: Yes Status: Chronic Assessment and Plan: ativan 0.5 mg Q8H PRN hold for respiratory rate <12 adn saturation <92% escitalopram increased to 15 mg mirtazapine 7.5 mg qday psych recommendations appreciated (4) Tobacco abuse Current Visit: Yes Status: Chronic Assessment and Plan: Patient has chronic history of tobacco and continues to smoke. counseled about smoking cessation (5) Altered mental status Current Visit: Yes Status: Acute Assessment and Plan: Orientation is labile between 2 and 3- it has improved since admission She is oriented to self and place but time and situation This is likely secondary to hypoxia and hypercapnic acidosis Head CT performed at admission was negative for acute process will continue redirection (6) Heart failure with preserved ejection fraction Current Visit: No Status: Chronic Assessment and Plan: Patient has remote history of echocardiogram in 2017 that revealed mild Diastolic dysfunction with preserved ejection fraction of 70-75% On this admission BNP was elevated to 300 however that appears to be her baseline from 3 previous labs back to 2016 Clinically patient is not in heart failure exacerbation, troponin <0.03, EKG sinus rhythm on admission. started on spironolactone 12.5 mg daily as she has chronically elevated BNP and Diastolic CHF on amlodipine 5 mg daily continue to monitor BP Echocardiogram 2017 Impressions: Technically sub-optimal due to poor echocardiographic windows. Normal LV systolic function, LVEF 70-75%. Mild concentric left ventricular hypertrophy. Mild left ventricular diastolic dysfunction. Normal right ventricular structure and function. No significant valvular dysfunction. No evidence of pulmonary hypertension. Left Ventricular Wall Motion: Rest Echo Findings All wall segments showed normal motion. (7) DVT prophylaxis Current Visit: Yes Status: Acute Assessment and Plan: heparin sc - Time Spent with Patient Total time spent is greater than 50% in coordination of care (as documented) at patient's floor/unit and/or counseling patient: Internal Medicine: Result - Labs CBC & Chem 7: 02/19/18 06:46 02/19/18 06:46 - ABG Interpretation ABG results: ABG ABG pH 7.29 pH Units (7.32-7.45) L 02/17/18 11:00 ABG pCO2 53 mmHg (35-45) H 02/17/18 11:00 ABG pO2 84 mmHg (85-104) L 02/17/18 11:00 ABG O2 Saturation 95 % (95-98) 02/17/18 11:00 PT/INR, D-dimer D-Dimer 621 ng/mLFEU (0-500) H 02/17/18 11:17 Consult Discharge Plan - Plan Referrals: Luis Hameed MD [Primary Care Provider] - (5) Altered mental status Qualifiers: Altered mental status type: disorientation Qualified Code(s): R41.0 - Disorientation, unspecified
[2018-02-20] MEDS: Mirtazapine 15 MG TABLET PO SCH (21:25)
[2018-02-20] MEDS: Acetaminophen 325 MG TABLET PO PRN (23:21)
[2018-02-21] MEDS: Ipratropium/Albuterol Neb 3 ML IH SCH ×4 (04:10→21:57)
[2018-02-21] MEDS: *HR* LORazepam 2 MG/ML VIAL IVP PRN ×2 (05:14→15:33)
[2018-02-21 05:15] LABS: BUN/Creatinine Ratio 25 (6-26); Blood Urea Nitrogen 19 mg/dL (6-20); Calcium 9.9 mg/dL (8.6-10.3); Carbon Dioxide 31 mEq/L (23-29); Chloride 99 mEq/L (98-107); Glucose 99 mg/dL (70-105); Osmolality,Calculated 286 (280-300); Potassium 3.2 mEq/L (3.5-5.1); Sodium 137 mEq/L (136-145); eGFR For Non-African Americans > 60 (> 60)
[2018-02-21] MEDS: *HR* Heparin 5,000 UNIT/ML VIAL SQ SCH ×3 (05:17→21:03)
[2018-02-21 05:30] LABS: Thyroid Stimulating Hormone 17.946 mcIU/mL (0.340-5.600)
[2018-02-21] MEDS: levoFLOXacin 750 MG TABLET PO SCH (10:18)
[2018-02-21] MEDS: Spironolactone 25 MG TABLET PO SCH (10:18)
[2018-02-21] MEDS: amLODIPine 5 MG TABLET PO SCH (10:18)
[2018-02-21] MEDS: predniSONE 20 MG TABLET PO SCH (10:18)
[2018-02-21] MEDS: Budesonide/Formoterol 160/4.5 1 PUFF INH IH SCH ×2 (10:40→21:56)
--- NOTE | 2018-02-21 11:48 | Internal Med Progress Note ---
Hospitalist Progress Note - Encounter Date of Encounter: 02/21/18 Time of Encounter: 08:30 - Subjective Interval History: patient was seen and examined at bedside. Breathing has improved. denies fever, chills, N/V/D, Chest pain, SOB tolerating diet, denies pain. - Exam Vitals: Temp Pulse Resp BP Pulse Ox 98.6 F 83 20 155/112 100 02/21/18 07:56 02/21/18 07:56 02/21/18 10:36 02/21/18 07:56 02/21/18 10:36 Exam: General: Patient is alert, oriented, no acute distress, thin , speaks in full sentences Head: atraumatic, normocephalic, Eye: normal appearance, PERRL, no scleral icterus, no conjunctival injection ENT: mucous membranes moist, normal external ear exam Neck: normal inspection, trachea midline, full ROM, no carotid bruits Chest: normadecreased breath sounds bilaterally, has occasional wheezing, occasional crackles in the posterior lung alejandre - improved Cardiovascular: Regular rate and rhythm. s1 and s2 No clicks, rubs, gallops, or murmors. Abdomen: Bowel sounds present normoactive x-4 quadrants. Abdomen is soft, nondistended. no Epigastric tenderness. No guarding or rebound. No organomegaly noted musculoskeletal: Spontaneously moving all extremities. no edema, no calf tenderness Skin: warm, dry, intact. Neuro: Alert and oriented x3 ( but it fluctuates) Sensation light touch intact. Cranial nerves 2-12 is intact. no focal deficit - Assessment and Plan (1) Acute respiratory failure with hypoxia and hypercapnia Current Visit: Yes Status: Acute Assessment and Plan: evidence of hypoxia and hypercapnia. most likely secondary to long-standing emphysema She has not tolerated BiPAP because of underlying claustrophobia and anxiety- pulmonology on board- recommended supplemental oxygen to keep saturation greater than 88 to around 92% CTPA on 02/18 IMPRESSION: 1. No findings of pulmonary embolism. 2. Increased now diffuse tree-in-bud opacities in each lung, likely infectious bronchiolitis. Aspiration is considered less likely given the distribution but could be possible given retained material in the esophagus. 3. Minimal to mild bronchial wall thickening with patchy airway secretions, suggesting bronchitis. Aspiration could result in a similar appearance. (2) COPD exacerbation Current Visit: Yes Status: Acute Assessment and Plan: Symbicort 160/4.52 puffs twice a day switched to PO steroids will continue to taper continue duo neb continue levaquin (3) Hypothyroidism Current Visit: Yes Status: Acute Assessment and Plan: was on 75 mcg and 88 mcg of synthroid alternating days at home TSH was ordered by psych and elevated at 17 however as per chart review she has had ablation T4 WNL will continue home dose synthroids (4) Anxiety Current Visit: Yes Status: Chronic Assessment and Plan: ativan 0.5 mg Q8H PRN hold for respiratory rate <12 adn saturation <92% escitalopram increased to 15 mg mirtazapine 7.5 mg qday psych recommendations appreciated (5) Tobacco abuse Current Visit: Yes Status: Chronic Assessment and Plan: Patient has chronic history of tobacco and continues to smoke. counseled about smoking cessation (6) Altered mental status Current Visit: Yes Status: Acute Assessment and Plan: Orientation is labile between 2 and 3- it has improved since admission This is likely secondary to hypoxia and hypercapnic acidosis Head CT performed at admission was negative for acute process will continue redirection (7) Heart failure with preserved ejection fraction Current Visit: No Status: Chronic Assessment and Plan: Patient has remote history of echocardiogram in 2017 that revealed mild Diastolic dysfunction with preserved ejection fraction of 70-75% On this admission BNP was elevated to 300 however that appears to be her baseline from 3 previous labs back to 2016 Clinically patient is not in heart failure exacerbation, troponin <0.03, EKG sinus rhythm on admission. started on spironolactone 12.5 mg daily as she has chronically elevated BNP and Diastolic CHF on amlodipine 5 mg daily continue to monitor BP Echocardiogram 2017 Impressions: Technically sub-optimal due to poor echocardiographic windows. Normal LV systolic function, LVEF 70-75%. Mild concentric left ventricular hypertrophy. Mild left ventricular diastolic dysfunction. Normal right ventricular structure and function. No significant valvular dysfunction. No evidence of pulmonary hypertension. Left Ventricular Wall Motion: Rest Echo Findings All wall segments showed normal motion. (8) DVT prophylaxis Current Visit: Yes Status: Acute Assessment and Plan: heparin sc - Summary of Assessment and Plan Summary of Assessment and Plan: PT/OT and SW and CM on board - for ECF placement - Time Spent with Patient Total time spent is greater than 50% in coordination of care (as documented) at patient's floor/unit and/or counseling patient: Internal Medicine: Result - Labs CBC & Chem 7: 02/19/18 06:46 02/21/18 04:30 Labs: BMP 02/21/18 04:30 Sodium 137 Potassium 3.2 L Chloride 99 Carbon Dioxide 31 H BUN 19 Creatinine 0.75 Glucose 99 Calcium 9.9 - ABG Interpretation ABG results: ABG ABG pH 7.29 pH Units (7.32-7.45) L 02/17/18 11:00 ABG pCO2 53 mmHg (35-45) H 02/17/18 11:00 ABG pO2 84 mmHg (85-104) L 02/17/18 11:00 ABG O2 Saturation 95 % (95-98) 02/17/18 11:00 PT/INR, D-dimer D-Dimer 621 ng/mLFEU (0-500) H 02/17/18 11:17 Consult Discharge Plan - Plan Referrals: Luis Hameed MD [Primary Care Provider] - (6) Altered mental status Qualifiers: Altered mental status type: disorientation Qualified Code(s): R41.0 - Disorientation, unspecified
[2018-02-21] MEDS: Mirtazapine 15 MG TABLET PO SCH (21:03)
[2018-02-21] MEDS: Acetaminophen 325 MG TABLET PO PRN (21:03)
[2018-02-22] MEDS: Ipratropium/Albuterol Neb 3 ML IH SCH ×2 (04:00→11:11)
[2018-02-22] MEDS: *HR* LORazepam 2 MG/ML VIAL IVP PRN (05:15)
[2018-02-22] MEDS: *HR* Heparin 5,000 UNIT/ML VIAL SQ SCH (05:16)
[2018-02-22 06:28] LABS: BUN/Creatinine Ratio 21 (6-26); Blood Urea Nitrogen 21 mg/dL (6-20); Calcium 10.1 mg/dL (8.6-10.3); Carbon Dioxide 33 mEq/L (23-29); Chloride 97 mEq/L (98-107); Glucose 102 mg/dL (70-105); Osmolality,Calculated 287 (280-300); Sodium 137 mEq/L (136-145); eGFR For Non-African Americans 58 (> 60)
[2018-02-22] MEDS: Acetaminophen 325 MG TABLET PO PRN (09:10)
[2018-02-22] MEDS: predniSONE 20 MG TABLET PO SCH (09:11)
[2018-02-22] MEDS: Spironolactone 25 MG TABLET PO SCH (09:11)
[2018-02-22] MEDS: amLODIPine 5 MG TABLET PO SCH (09:11)
[2018-02-22 09:37] VITALS: BP 150/131
[2018-02-22] MEDS ORDERED: Potassium Chloride Elixir 20 MEQ/15 ML UDC PO SCH (09:45)
--- NOTE | 2018-02-22 10:24 | Discharge Summary ---
<Dustin Bender - Last Filed: 02/22/18 14:34> - NOTES TO OUTPATIENT PROVIDER Notes to Outpatient Provider: TSH = 18, recheck thyroid function in 4 weeks. Patient discharged with prednisone and levaquin for COPD exacerbation. Orders not resulted at time of discharge: Pending orders 02/17/18 11:41 Sputum Culture [Culture,Sputum with Gram Stain] [] Routine Date of Encounter: 02/22/18 Time of Encounter: 10:30 - Discharge Diagnosis (1) Acute exacerbation of chronic obstructive airways disease Priority: Primary Status: Acute (2) Hypothyroidism Priority: Secondary Status: Chronic Qualifiers: Hypothyroidism type: acquired Qualified Code(s): E03.9 - Hypothyroidism, unspecified (3) Anxiety Priority: Secondary Status: Chronic Hospital course: Mrs. Christian is a 57F PMHx COPD, GERD, diastolic HF with preserved EF with SOB x 1 day on 02/16. On admission 82% on 3L home O2. She received duoneb with improvement to 97%. Patient also had fever 102F. Levaquin and solumedrol was started at ED for COPD exacerbation with possible pneumonia. CXR atelectasis without consolidations. ABG with evidence of respiratory failure with hypoxia and hypercapnia. CTA was also obtained due to altered mental status and it was negative for acute process. EKG with sinus tachycardia. BIPAP initiated for respiratory failure. She has not tolerated BiPAP because of underlying claustrophobia and anxiety. Pulmonology recommended supplemental oxygen to keep saturation greater than 88 to around 92%. Psychiatry was consulted for her anxiety, and she was cleared to continue her medications. No significant changes made for anxiety therapy. TSH was ordered by psychiatry and TSH moderately low. She is to follow up outpatient with repeat thyroid function testing after increasing dose of levothyroxine to 100mcg PO daily. Today, patient is doing well on 2L NC. SOB has improve. Patient continues to wheeze but is back to baseline and reports that she wants to go home. She is discharged with 5 day course of 40mg PO daily prednisone and 3 more days of 750mg PO daily levaquin. Patient verbalizes understanding and is agreeable to treatment plan. Discharge discussed with: patient Time spent discussing smoking cessation with patient: more than 10 minutes - Time Spent with Patient Total time spent providing and/or coordinating discharge services: Greater than 30 minutes - Discharge Medications Prescriptions: Levofloxacin [Levaquin] 750 mg PO DAILY #3 tablet predniSONE [PredniSONE] 40 mg PO DAILY #5 tablet Home Medications: Escitalopram [Lexapro] 10 mg PO DAILY 11/01/15 [History] Levothyroxine [Synthroid] 88 mcg PO Q48H 11/27/15 [History] Atorvastatin Calcium [Lipitor] 20 mg PO HS 09/23/17 [History] Levothyroxine [Synthroid] 75 mcg PO Q48H 09/23/17 [History] Metoprolol [Lopressor] 25 mg PO BID 09/23/17 [History] Albuterol Sulfate [Proair Hfa] 2 puff IH Q4H PRN 01/21/18 [History] Fluticasone/Vilanterol [Breo Ellipta 100-25 Mcg INH] 1 puff IH DAILY 01/21/18 [ History] Ipratropium/Albuterol Neb [Duoneb] 3 ml IH Q4HR PRN 01/21/18 [History] PredniSONE [Deltasone] 20 mg PO QAM 5 Days #5 tablet 01/21/18 [Rx] Tiotropium [Spiriva] 18 mcg PO DAILY 01/21/18 [History] Cholecalciferol (D-3) [Vitamin D] 5,000 unit PO DAILY 02/16/18 [History] Lisinopril [Zestril] 10 mg PO DAILY 02/16/18 [History] Mirtazapine [Remeron] 15 mg PO DAILY 02/16/18 [History] Levofloxacin [Levaquin] 750 mg PO DAILY #3 tablet 02/22/18 [Rx] predniSONE [PredniSONE] 40 mg PO DAILY #5 tablet 02/22/18 [Rx] Allergies/Adverse Reactions: 3 Allergy/AdvReac Type Severity Reaction Status Date / Time morphine AdvReac Hives Verified 09/23/17 00:38 Date of admission: 02/17/18 10:00 Primary care physician: Luis Hameed MD Consults: 02/17/18 11:53 Consult to Pulmonology [CONS] Routine Consulting Provider: [facility] [place] Reason for Consult: difficulty in breathing Call Completed: Yes 02/18/18 17:42 Consult to Nutrition [CONS] Routine Comment: Consulting Provider: NUTRITION Reason for Dietary Consult: PO Supplementation Consult to Physical Therapy [CONS] Routine Comment: Evaluate, develop and implement POC Reason for Consult: dispostion Does patient have active BEDREST order?: No Is patient medically & hemodynamically stable?: Yes Patient assessed for mobility or mobilized this visit?: Yes OT [Consult to Occupational Therapy] [CONS] Routine Comment: Evaluate, develop and implement POC Reason for Consult: disposition Does patient have active BEDREST order?: No Is patient medically & hemodynamically stable?: Yes Patient assessed for mobility or mobilized this visit?: Yes 02/19/18 09:22 Consult to Psychiatry [CONS] Routine Consulting Provider: Psychiatry [place] Reason consult: Other Other reason and/or additional details: anxiety, depression 02/20/18 10:24 Consult to Promotional Model [CONS] Routine Reason for SW Consult: PT/OT rec SNF Discharging clinician: Dustin Bender Anticipated date of discharge: 02/22/18 - Constitutional Vitals: Temp Pulse Resp BP Pulse Ox 97 F L 76 18 150/131 92 02/22/18 09:00 02/22/18 07:29 02/22/18 09:00 02/22/18 09:00 02/22/18 09:00 Exam: General: Patient is alert, oriented, no acute distress, thin , speaks in full sentences Head: atraumatic, normocephalic, Eye: normal appearance, PERRL, no scleral icterus, no conjunctival injection ENT: mucous membranes moist, normal external ear exam Neck: normal inspection, trachea midline, full ROM, no carotid bruits Chest: normadecreased breath sounds bilaterally, has occasional wheezing, occasional crackles in the posterior lung alejandre - improved Cardiovascular: Regular rate and rhythm. s1 and s2 No clicks, rubs, gallops, or murmors. Abdomen: Bowel sounds present normoactive x-4 quadrants. Abdomen is soft, nondistended. no Epigastric tenderness. No guarding or rebound. No organomegaly noted musculoskeletal: Spontaneously moving all extremities. no edema, no calf tenderness Skin: warm, dry, intact. Neuro: Alert and oriented x3 ( but it fluctuates) Sensation light touch intact. Cranial nerves 2-12 is intact. no focal deficit - Patient Status Disposition: Home, Self-Care Condition: Fair Functional capacity at discharge: independent ambulation Overall status at discharge: patient is progressing back to baseline - Discharge Instructions Instructions: Prednisone (By mouth), Levofloxacin (By mouth), Chronic Obstructive Pulmonary Disease (DC), Anxiety (DC), Cigarette Smoking and Your Health, Transportation Solutions Manager (GEN) Follow Up With: Luis Hameed MD [Primary Care Provider] - - Diet and Activity Activity: increase activity as tolerated Diet: advance to your usual diet <FolvarunChetna vickerso A - Last Filed: 02/22/18 15:30> Date of Encounter: 02/22/18 - Discharge Diagnosis (1) Acute respiratory failure with hypoxia and hypercapnia Status: Acute (2) Altered mental status Status: Acute Qualifiers: Altered mental status type: disorientation Qualified Code(s): R41.0 - Disorientation, unspecified (3) COPD exacerbation Status: Acute Hospital course: Ms. Christian is a 57 year old female - Time Spent with Patient Total time spent providing and/or coordinating discharge services: Date of admission: 02/17/18 10:00 Primary care physician: Luis Hameed MD Consults: 02/17/18 11:53 Consult to Pulmonology [CONS] Routine Consulting Provider: [facility] [place] Reason for Consult: difficulty in breathing Call Completed: Yes 02/18/18 17:42 Consult to Nutrition [CONS] Routine Comment: Consulting Provider: NUTRITION Reason for Dietary Consult: PO Supplementation Consult to Physical Therapy [CONS] Routine Comment: Evaluate, develop and implement POC Reason for Consult: dispostion Does patient have active BEDREST order?: No Is patient medically & hemodynamically stable?: Yes Patient assessed for mobility or mobilized this visit?: Yes OT [Consult to Occupational Therapy] [CONS] Routine Comment: Evaluate, develop and implement POC Reason for Consult: disposition Does patient have active BEDREST order?: No Is patient medically & hemodynamically stable?: Yes Patient assessed for mobility or mobilized this visit?: Yes 02/19/18 09:22 Consult to Psychiatry [CONS] Routine Consulting Provider: Psychiatry [place] Reason consult: Other Other reason and/or additional details: anxiety, depression 02/20/18 10:24 Consult to Promotional Model [CONS] Routine Reason for SW Consult: PT/OT rec SNF - Constitutional Vitals: Temp Pulse Resp BP Pulse Ox 97 F L 76 18 150/131 92 02/22/18 09:00 02/22/18 07:29 02/22/18 11:13 02/22/18 09:00 02/22/18 11:13 - Attending Attestation Gen - Awake, alert, oriented x 3, no acute distress HEENT - NCAT, PERRLA, EOMI, hearing grossly intact, oropharynx benign CV - RRR, normal S1 and S2, no M/R/G, no BLE edema Resp - Normal WOB, CTAB, no W/R/R GI - Soft, NT/ND, no masses, normal bowel sounds, Skin - Warm, dry, no rashes/lesions/ulcers Psych - Normal mood and affect, no depression or anxiety Plan Came in for COPD exacerbation. Wheezing has improved. Stable for discharge. Agree with discharge summary as above
--- NOTE | 2018-02-22 10:33 | Physician Discharge Referral ---
Home Health/Hosp Referral Info Transfer to: Home Health - Diagnosis (1) Acute respiratory failure with hypoxia and hypercapnia Status: Acute (2) Altered mental status Status: Acute (3) COPD exacerbation Status: Acute - Respiratory Orders Smoking Cessation: Smoking cessation has been advised. For more information, call the [place] Tobacco Quit Line at 7-819-FIJW-NOW. - Diet/Nutrition Diet/Nutrition Orders: Cardiac - Services Needed Following services are medically necessary services: Nursing, Home Health Aide, Physical Therapy - Transfer Medications Prescriptions: Levofloxacin [Levaquin] 750 mg PO DAILY #3 tablet predniSONE [PredniSONE] 40 mg PO DAILY #5 tablet Home Medications: Escitalopram [Lexapro] 10 mg PO DAILY 11/01/15 [History] Levothyroxine [Synthroid] 88 mcg PO Q48H 11/27/15 [History] Atorvastatin Calcium [Lipitor] 20 mg PO HS 09/23/17 [History] Levothyroxine [Synthroid] 75 mcg PO Q48H 09/23/17 [History] Metoprolol [Lopressor] 25 mg PO BID 09/23/17 [History] Albuterol Sulfate [Proair Hfa] 2 puff IH Q4H PRN 01/21/18 [History] Fluticasone/Vilanterol [Breo Ellipta 100-25 Mcg INH] 1 puff IH DAILY 01/21/18 [ History] Ipratropium/Albuterol Neb [Duoneb] 3 ml IH Q4HR PRN 01/21/18 [History] PredniSONE [Deltasone] 20 mg PO QAM 5 Days #5 tablet 01/21/18 [Rx] Tiotropium [Spiriva] 18 mcg PO DAILY 01/21/18 [History] Cholecalciferol (D-3) [Vitamin D] 5,000 unit PO DAILY 02/16/18 [History] Lisinopril [Zestril] 10 mg PO DAILY 02/16/18 [History] Mirtazapine [Remeron] 15 mg PO DAILY 02/16/18 [History] Levofloxacin [Levaquin] 750 mg PO DAILY #3 tablet 02/22/18 [Rx] predniSONE [PredniSONE] 40 mg PO DAILY #5 tablet 02/22/18 [Rx] Allergies/Adverse Reactions: 3 Allergy/AdvReac Type Severity Reaction Status Date / Time morphine AdvReac Hives Verified 09/23/17 00:38 Certification: Further, I certify that my clinical findings support that this patient is homebound (i.e. absences from home require considerable and taxing effort and are for medical reasons or gnosticism services or infrequently or short duration when for other reasons) because: Homebound Reason: Patient requires assistance of a person or device to safely leave home Attestation: My signature below is to certify that this patient is under my care and that I, or nurse practitioner, or a physician's construction management assistant working with me, has a face-to -face encounter with this patient.
[2018-02-22] MEDS: Budesonide/Formoterol 160/4.5 1 PUFF INH IH SCH (11:11)
== END 2018-02-22 13:17 | disposition home or self-care (01) | DRG 133 ==
LOC: 2NENU 16:17 → EMEROOARM 16:17 → 2NENU 20:56 → SUATTDRO 02-17 10:00
PROVIDERS: ADMIT Pediatrics; ATTEND Internal Medicine

== ENCOUNTER 2018-03-10 21:06 | Observation (INO) ==
[2018-03-10] MEDS ORDERED: Ipratropium/Albuterol Neb 3 ML IH ONE (21:11)
[2018-03-10] MEDS ORDERED: *HR* LORazepam 2 MG/ML VIAL IVP ONE (21:11)
[2018-03-10] MEDS ORDERED: methylPREDNISolone 125 MG/2 ML VIAL IVP ONE (21:11)
--- NOTE | 2018-03-10 21:14 | Emergency Department Note ---
Disposition Clinical Impression: COPD exacerbation Acute and chronic respiratory failure Qualifiers: Respiratory failure complication: unspecified whether with hypoxia or hypercapnia Qualified Code(s): J96.20 - Acute and chronic respiratory failure, unspecified whether with hypoxia or hypercapnia Disposition: Admitted As Inpatient Condition: Fair Referrals: NONE,PCP [Primary Care Provider] - Forms: ED Satisfaction Letter SOB HPI - General Chief Complaint: ED Shortness of Breath/Dyspnea Stated Complaint: resp distress Time Seen by Provider: 03/10/18 21:10 Source: patient, EMS Mode of arrival: EMS Limitations: no limitations Nursing Notes Reviewed: Yes Vital Signs Reviewed: Yes - History of Present Illness 57-year-old female history of oxygen-dependent COPD, wears 3 L as needed who presents to the ER via EMS with a complaint of shortness of breath. States that it started this afternoon. Denies any inciting events. EMS reports that she was 97% when they arrived. She did have a transient hypoxic event in route in the high 80s on nasal cannula. This quickly resolved. She was unable to tolerate BiPAP while in the squad. She presents moderate respiratory distress. Unable to speak full sentences. Denies any chest pain, fever, cough, nausea vomiting or diarrhea. No history of pulmonary embolism. Does report she feels slightly anxious. No other complaints. Pt Subjective Complaint: shortness of breath Onset (ago): hour(s) Severity: severe Improves with: nothing Worsens with: nothing Known history of: COPD Associated symptoms: Denies: chest pain, fever, cough Sputum Amount: None - Related Data Home oxygen amount: other (oxygen concentrator) Home Medications Medication Instructions Recorded Confirmed Escitalopram [Lexapro] 10 mg PO DAILY 11/01/15 02/16/18 Levothyroxine [Synthroid] 88 mcg PO Q48H 11/27/15 02/16/18 Atorvastatin Calcium [Lipitor] 20 mg PO HS 09/23/17 02/16/18 Levothyroxine [Synthroid] 75 mcg PO Q48H 09/23/17 02/16/18 Metoprolol [Lopressor] 25 mg PO BID 09/23/17 01/21/18 Albuterol Sulfate [Proair Hfa] 2 puff IH Q4H PRN 01/21/18 01/21/18 Fluticasone/Vilanterol [Breo 1 puff IH DAILY 01/21/18 02/16/18 Ellipta 100-25 Mcg INH] Ipratropium/Albuterol Neb [Duoneb] 3 ml IH Q4HR PRN 01/21/18 01/21/18 Tiotropium [Spiriva] 18 mcg PO DAILY 01/21/18 02/16/18 Cholecalciferol (D-3) [Vitamin D] 5,000 unit PO DAILY 02/16/18 Lisinopril [Zestril] 10 mg PO DAILY 02/16/18 02/16/18 Mirtazapine [Remeron] 15 mg PO DAILY 02/16/18 Previous Rx's Medication Instructions Recorded PredniSONE [Deltasone] 20 mg PO QAM 5 Days #5 tablet 01/21/18 Levofloxacin [Levaquin] 750 mg PO DAILY #3 tablet 02/22/18 predniSONE [PredniSONE] 40 mg PO DAILY #5 tablet 02/22/18 Allergies Allergy/AdvReac Type Severity Reaction Status Date / Time morphine AdvReac Hives Verified 09/23/17 00:38 All systems ED: reviewed and negative except as stated. Constitutional: Denies: fever, chills Cardiovascular: Denies: chest pain Respiratory: Reports: dyspnea. Denies: cough, sputum production Gastrointestinal: Denies: abdominal pain, nausea, vomiting, diarrhea Past Medical History - Past Medical History Attestation: Yes The following information was validated with the patient. Source: patient Medical history: Reports: arthritis, COPD, GERD, osteoporosis, thyroid disease, other Surgical history: Reports: other Psychiatric history: Reports: anxiety - Social History Smoking Status: Current every day smoker Smokeless Tobacco Status: No (not smoked for 4 days) Alcohol use: Reports: occasionally Drug use: Reports: none Physical Exam - General Limitations: no limitations General appearance: alert, anxious, in distress - Head Head exam: atraumatic, normocephalic, normal inspection - Eye Eye exam: Present: normal appearance - ENT ENT exam: normal exam - Neck Neck exam: Present: normal inspection - Chest Chest inspection: Present: normal inspection, symmetric chest wall rise - Respiratory Respiratory exam: Present: respiratory distress, accessory muscle use, prolonged expiratory phase - Cardiovascular Cardiovascular exam: Present: normal rhythm, tachycardia, normal heart sounds - Abdominal Exam Abdominal exam: Present: soft, Non-Tender. Absent: tenderness, distention, guarding, rigidity - Extremities Exam Extremities exam: Present: normal inspection, full ROM - Expanded Upper Extremity Exam Shoulder exam: Present: normal inspection, full ROM Arm exam: Present: normal inspection, full ROM Elbow exam: Present: normal inspection, full ROM Forearm/Wrist exam: Present: normal inspection, full ROM Hand exam: Present: normal inspection, full ROM - Expanded Lower Extremity Exam Hip/Pelvis exam: Present: normal inspection, full ROM Upper leg exam: Present: normal inspection, full ROM Knee exam: Present: normal inspection, full ROM Lower leg exam: Present: normal inspection, full ROM Ankle exam: Present: normal inspection, full ROM Foot/toe exam: Present: normal inspection, full ROM - Skin Skin exam: Present: warm, dry Course Course Narrative: Patient seen and examined at time of arrival. She is not hypoxic here. She is in moderate respiratory distress as well as I suspect a panic attack as well. We will give her some DuoNeb treatments here, Solu-Medrol, Ativan and try BiPAP as it appears that she has been on this before. We will also obtain an EKG, chest x-ray and labs. She will likely require admission. - Reevaluation(s) Reevaluation #1: Reevaluation: The patient is resting comfortably, remains on BiPAP. She reports improved symptoms. Family is at bedside. She is agreeable with admission. Vital Signs Temperature 0 F L 03/10/18 21:10 Pulse Rate 127 03/10/18 21:10 Respiratory Rate 36 03/10/18 21:10 Blood Pressure 116/83 03/10/18 21:10 O2 Sat by Pulse Oximetry 97 03/10/18 21:10 Temperature 98.2 F 03/10/18 21:51 Pulse Rate 98 03/10/18 22:21 Respiratory Rate 21 03/10/18 22:21 Blood Pressure 131/87 03/10/18 22:21 O2 Sat by Pulse Oximetry 96 03/10/18 22:21 Oxygen Delivery Oxygen Delivery Bipap Shortness of Breath/Dyspnea - MDM Narrative Medical decision making narrative: 57-year-old female presenting due to respiratory distress. She was initially tachycardic and tachypneic which both improved with intervention. She is on BiPAP with acute on chronic respiratory failure and tolerating well with anxiolysis. EKG is sinus tachycardia. Chest x-ray is unremarkable. Labs are grossly unremarkable with a negative troponin and slightly elevated but chronic BNP. The patient received DuoNeb treatments, Solu-Medrol as well as Levaquin for COPD exacerbation coverage. She is admitted to the hospitalist service for further management. - Lab Data Lab results reviewed: Yes I reviewed the patient's lab results. Result diagrams: 03/10/18 21:28 03/10/18 21:28 Lab Results 03/10/18 03/10/18 03/10/18 Range/Units 21:28 21:28 21:28 WBC 8.8 (4.3-11.1) K/mcL RBC 3.81 L (3.82-4.97) M/mcL Hgb 11.6 (11.5-15.4) g/dL Hct 36.6 (35.3-44.9) % MCV 96.1 (83.0-100.0) fL MCH 30.4 (28.0-33.3) pg MCHC 31.7 (31.6-35.5) g/dL RDW 15.9 H (11.5-14.5) % Plt Count 357 (140-400) K/mcL MPV 9.9 (9.4-12.4) fL Immature Gran % 0.5 (0-4) % Seg Neutrophils % 59.8 % Lymphocytes % 34.0 % Monocytes % 4.0 % Eosinophils % 1.0 % Basophils % 0.7 % Neutrophils # 5.3 (1.6-8.9) K/mcL Lymphocytes # 3.0 (0.6-4.6) K/mcL Monocytes # 0.4 (0.0-1.3) K/mcL Eosinophils # 0.1 (0.0-0.6) K/mcL Basophils # 0.1 (0.0-0.2) K/mcL Sodium 137 (136-145) mEq/L Potassium 4.0 (3.5-5.1) mEq/L Chloride 100 (98-107) mEq/L Carbon Dioxide 19 L (23-29) mEq/L BUN 19 (6-20) mg/dL Creatinine 0.97 (0.60-1.20) mg/dL Est GFR ( Amer) > 60 (> 60) Est GFR (Non-Af Amer) 59 L (> 60) BUN/Creatinine Ratio 20 (6-26) Glucose 203 H (70-105) mg/dL Calculated Osmolality 292 (280-300) Calcium 9.1 (8.6-10.3) mg/dL Troponin I 0.03 (< 0.04) ng/mL B-Natriuretic Peptide 215 H (Less than 100) pg/mL - Radiology Data Radiology results reviewed: Yes I reviewed the patient's radiology results. Chest X-Ray 03/10/18 21:11 IMPRESSION: No acute process. Stable COPD changes D/ / Raymundo Nix MD / Raymundo Nix MD Interpreting Provider: Raymundo Nix MD - EKG Data EKG attestation: Yes I reviewed and interpreted this EKG. EKG results narrative: EKG demonstrates sinus tachycardia with rate of 116. Normal axis. Normal intervals. Normal R-wave progression. There are prominent P waves in the limb leads. No gross ST elevations or depressions. No acute ischemic findings. No significant changes from previous EKG dated 02/17/18. Aleisha - Aleisha Situation: Demographics, MOA Background: Presenting Complaint, Relevant PMH, Meds, & Allergies Assessment: Vital Signs, Course and respsone to treatment, Exam Concerns, Patient/Family Expectation, Pertinant Lab Results Recommendation: Barrier(s) to disposition, Recommendation based on pending studies, treatments, or consults Aleisha Report Given to: Dr. Svetlana Moraes Repor Time: 22:43
--- NOTE | 2018-03-10 21:20 | Emergency Department Note ---
Disposition Clinical Impression: Acute and chronic respiratory failure, COPD exacerbation Disposition: Admitted As Inpatient Condition: Fair General Adult HPI - General Chief complaint: ED Shortness of Breath/Dyspnea Stated complaint: resp distress Time Seen by Provider: 03/10/18 21:10 Source: patient, EMS Mode of arrival: EMS Limitations: no limitations - Related Data Home Medications Medication Instructions Recorded Confirmed RX: Escitalopram [Lexapro] 10 mg PO DAILY 11/01/15 02/16/18 RX: Levothyroxine [Synthroid] 88 mcg PO Q48H 11/27/15 02/16/18 RX: Atorvastatin Calcium [Lipitor] 20 mg PO HS 09/23/17 02/16/18 RX: Levothyroxine [Synthroid] 75 mcg PO Q48H 09/23/17 02/16/18 RX: Metoprolol [Lopressor] 25 mg PO BID 09/23/17 01/21/18 RX: Albuterol Sulfate [Proair Hfa] 2 puff IH Q4H PRN 01/21/18 01/21/18 RX: Fluticasone/Vilanterol [Breo 1 puff IH DAILY 01/21/18 02/16/18 Ellipta 100-25 Mcg INH] RX: Ipratropium/Albuterol Neb 3 ml IH Q4HR PRN 01/21/18 01/21/18 [Duoneb] RX: Tiotropium [Spiriva] 18 mcg PO DAILY 01/21/18 02/16/18 RX: Cholecalciferol (D-3) [Vitamin 5,000 unit PO DAILY 02/16/18 D] RX: Lisinopril [Zestril] 10 mg PO DAILY 02/16/18 02/16/18 RX: Mirtazapine [Remeron] 15 mg PO DAILY 02/16/18 Previous Rx's Medication Instructions Recorded RX: PredniSONE [Deltasone] 20 mg PO QAM 5 Days #5 tablet 01/21/18 Levofloxacin [Levaquin] 750 mg PO DAILY #3 tablet 02/22/18 predniSONE [PredniSONE] 40 mg PO DAILY #5 tablet 02/22/18 Allergies Allergy/AdvReac Type Severity Reaction Status Date / Time morphine AdvReac Hives Verified 09/23/17 00:38 Constitutional: Denies: fever, chills Cardiovascular: Denies: chest pain Respiratory: Reports: dyspnea. Denies: cough, sputum production Gastrointestinal: Denies: abdominal pain, nausea, vomiting, diarrhea Past Medical History - Past Medical History Medical history: Reports: arthritis, COPD, GERD, osteoporosis, thyroid disease, other Surgical history: Reports: other Psychiatric history: Reports: anxiety - Social History Smoking Status: Current every day smoker Smokeless Tobacco Status: No (not smoked for 4 days) Alcohol use: Reports: occasionally Drug use: Reports: none Physical Exam - General Limitations: no limitations General appearance: alert, anxious, in distress Course Vital Signs Temperature 0 F L 03/10/18 21:10 Pulse Rate 127 03/10/18 21:10 Respiratory Rate 36 03/10/18 21:10 Blood Pressure 116/83 03/10/18 21:10 O2 Sat by Pulse Oximetry 97 03/10/18 21:10 Temperature 98.2 F 03/10/18 21:51 Pulse Rate 105 03/11/18 00:46 Respiratory Rate 22 03/11/18 04:00 Blood Pressure 96/66 03/11/18 00:46 O2 Sat by Pulse Oximetry 98 03/11/18 04:00 Oxygen Delivery Oxygen Delivery Bipap Medical Decision Making - Lab Data Result diagrams: 03/10/18 21:28 03/10/18 21:28 Lab Results 03/10/18 03/10/18 03/10/18 Range/Units 21:28 21:28 21:28 WBC 8.8 (4.3-11.1) K/mcL RBC 3.81 L (3.82-4.97) M/mcL Hgb 11.6 (11.5-15.4) g/dL Hct 36.6 (35.3-44.9) % MCV 96.1 (83.0-100.0) fL MCH 30.4 (28.0-33.3) pg MCHC 31.7 (31.6-35.5) g/dL RDW 15.9 H (11.5-14.5) % Plt Count 357 (140-400) K/mcL MPV 9.9 (9.4-12.4) fL Immature Gran % 0.5 (0-4) % Seg Neutrophils % 59.8 % Lymphocytes % 34.0 % Monocytes % 4.0 % Eosinophils % 1.0 % Basophils % 0.7 % Neutrophils # 5.3 (1.6-8.9) K/mcL Lymphocytes # 3.0 (0.6-4.6) K/mcL Monocytes # 0.4 (0.0-1.3) K/mcL Eosinophils # 0.1 (0.0-0.6) K/mcL Basophils # 0.1 (0.0-0.2) K/mcL Sodium 137 (136-145) mEq/L Potassium 4.0 (3.5-5.1) mEq/L Chloride 100 (98-107) mEq/L Carbon Dioxide 19 L (23-29) mEq/L BUN 19 (6-20) mg/dL Creatinine 0.97 (0.60-1.20) mg/dL Est GFR ( Amer) > 60 (> 60) Est GFR (Non-Af Amer) 59 L (> 60) BUN/Creatinine Ratio 20 (6-26) Glucose 203 H (70-105) mg/dL Calculated Osmolality 292 (280-300) Calcium 9.1 (8.6-10.3) mg/dL Troponin I 0.03 (< 0.04) ng/mL B-Natriuretic Peptide 215 H (Less than 100) pg/mL Critical Care Time Critical Care Time: Yes Total Critical Care Time: 30 Attestation: The high probability of a clinically significant, sudden or life threatening deterioration of the [] system(s) required my full and direct attention, intervention and personal management. The aggregate critical care time was [] minutes. This time is in addition to time spent performing reported procedures but includes the following: [] Data Review and interpretation [] Patient assessment and monitoring of vital signs [] Documentation [] Medication orders and management Attestation Statement - Attestation Attestation: I examined this patient and my medical decision-making was reviewed with the Resident Physician. I agree with the documented findings, disposition and treatment plan as described except to the extent set forth below. [id number] time provided Patient with a history of oxygen dependency presents with dyspnea by EMS from home. She was hypoxic prehospital. She required BiPAP therapy on arrival with improvement of symptoms
[2018-03-10] MEDS ORDERED: 0.9 % Sodium Chloride 1,000 ML IVC ONE (21:26)
[2018-03-10 21:49] LABS: Basophils # 0.1 K/mcL (0.0-0.2); Basophils % 0.7 %; Eosinophils # 0.1 K/mcL (0.0-0.6); Hematocrit 36.6 % (35.3-44.9); Hemoglobin 11.6 g/dL (11.5-15.4); Immature Granulocytes % 0.5 % (0-4); Mean Corpuscular HGB Conc 31.7 g/dL (31.6-35.5); Mean Corpuscular Hemoglobin 30.4 pg (28.0-33.3); Mean Corpuscular Volume 96.1 fL (83.0-100.0); Mean Platelet Volume 9.9 fL (9.4-12.4); Monocytes # 0.4 K/mcL (0.0-1.3); Neutrophils # 5.3 K/mcL (1.6-8.9); Platelet Count 357 K/mcL (140-400); Red Blood Count 3.81 M/mcL (3.82-4.97); Red Cell Distribution Width 15.9 % (11.5-14.5); Segmented Neutrophils % 59.8 %
[2018-03-10] MEDS ORDERED: Levofloxacin 750 MG/150 ML 750 MG/150 ML BAG IVPB ONE (21:56)
[2018-03-10 22:10] LABS: BUN/Creatinine Ratio 20 (6-26); Blood Urea Nitrogen 19 mg/dL (6-20); Calcium 9.1 mg/dL (8.6-10.3); Carbon Dioxide 19 mEq/L (23-29); Chloride 100 mEq/L (98-107); Glucose 203 mg/dL (70-105); Osmolality,Calculated 292 (280-300); Sodium 137 mEq/L (136-145); Troponin I 0.03 ng/mL (< 0.04); eGFR For Non-African Americans 59 (> 60)
[2018-03-10] MEDS: Ipratropium/Albuterol Neb 3 ML IH SCH (23:49)
--- NOTE | 2018-03-10 23:52 | Internal Med History&Physical ---
Date of Encounter: 03/10/18 Time of Encounter: 23:47 Internal Medicine - H&P: HPI Chief complaint: shortness of breath Admitted From: Home Plans for Post Hospital Care: Home History of present illness: Julia Christian is a 57 year old woman with oxygen-dependent COPD (3L) who has been hospitalized numerous times and remains an avid smoker, presenting again via EMS with a complaint of shortness of breath. She states that it started this afternoon and denies any inciting events. EMS reports that she was 97% when they arrived. She did have a transient hypoxic event in route in the high 80s on nasal cannula but this quickly resolved. She was unable to tolerate BiPAP while in the ambulance seemingly due to anxiety. She arrived with moderate respiratory distress and unable to speak in full sentences. Denied any chest pain, fever, nausea vomiting or diarrhea. No history of pulmonary embolism. Does report she feels slightly anxious and having somewhat of a productive cough. No other complaints. She was placed on Bipap and given some lorazepam which improved her condition. Past Med Surg Social Fam HX - Past Medical History Medical history: arthritis, COPD, GERD, osteoporosis, thyroid disease, other Additional medical history: bronchitis Psychiatric history: anxiety - Past Surgical History Surgical History: other Additional surgical history: radioactive thyroid removal - Social History Smoking Status: Current every day smoker Smokeless Tobacco Status: No (not smoked for 4 days) Alcohol use: occasionally Drug use: none - Family History Mother Living Status: Hx Family Cancer: Yes Father Hx Family Respiratory Disorders: Yes Internal Medicine - H&P: Meds Escitalopram [Lexapro] 10 mg PO DAILY 11/01/15 [History] Levothyroxine [Synthroid] 88 mcg PO Q48H 11/27/15 [History] Atorvastatin Calcium [Lipitor] 20 mg PO HS 09/23/17 [History] Levothyroxine [Synthroid] 75 mcg PO Q48H 09/23/17 [History] Metoprolol [Lopressor] 25 mg PO BID 09/23/17 [History] Albuterol Sulfate [Proair Hfa] 2 puff IH Q4H PRN 01/21/18 [History] Fluticasone/Vilanterol [Breo Ellipta 100-25 Mcg INH] 1 puff IH DAILY 01/21/18 [History] Ipratropium/Albuterol Neb [Duoneb] 3 ml IH Q4HR PRN 01/21/18 [History] PredniSONE [Deltasone] 20 mg PO QAM 5 Days #5 tablet 01/21/18 [Rx] Tiotropium [Spiriva] 18 mcg PO DAILY 01/21/18 [History] Cholecalciferol (D-3) [Vitamin D] 5,000 unit PO DAILY 02/16/18 [History] Lisinopril [Zestril] 10 mg PO DAILY 02/16/18 [History] Mirtazapine [Remeron] 15 mg PO DAILY 02/16/18 [History] Levofloxacin [Levaquin] 750 mg PO DAILY #3 tablet 02/22/18 [Rx] predniSONE [PredniSONE] 40 mg PO DAILY #5 tablet 02/22/18 [Rx] Allergy/AdvReac Type Severity Reaction Status Date / Time morphine AdvReac Hives Verified 09/23/17 00:38 All Systems PM: A 10-system review of systems was performed and is negative for pertinent findings except as documented above in the HPI. - Constitutional Vitals: Temp Pulse Resp BP Pulse Ox 98.2 F 98 21 131/87 96 03/10/18 21:51 03/10/18 22:21 03/10/18 22:21 03/10/18 22:21 03/10/18 22:21 Exam: Vitals: Reviewed General: Cachectic appearing, teary-eyed but not in acute distress lying comfortably in bed. Skin: Warm and supple. HEENT: Moist mucous membranes. No conjunctivae pallor. Neck: No lymphadenopathy. No JVD. No carotid bruits. No palpable thyroid. Chest: Diminished thoracic expansion. No wheezes, rales or rhonchi. Reduced breath sounds bilaterally. Heart: Normal S1 & S2; rhythmic. No rubs or murmurs. Abdomen: Non-distended, soft and non-tender to palpation. Extremities: (+) clubbing, no cyanosis or edema. No calf tenderness. Normal distal pulses. Neurological: Awake, alert and oriented to person, place and time. No focal deficits. Psych: Affect appropriate. Internal Med - H&P Results - Labs CBC & Chem 7: 03/10/18 21:28 03/10/18 21:28 Labs: Short CBC 10/29/18 Range/Units 21:28 WBC 8.8 (4.3-11.1) K/mcL Hgb 11.6 (11.5-15.4) g/dL Hct 36.6 (35.3-44.9) % Plt Count 357 (140-400) K/mcL Neutrophils # 5.3 (1.6-8.9) K/mcL BMP 03/10/18 21:28 Sodium 137 Potassium 4.0 Chloride 100 Carbon Dioxide 19 L BUN 19 Creatinine 0.97 Glucose 203 H Calcium 9.1 Cardiac Enzymes 03/10/18 Range/Units 21:28 Troponin I 0.03 (< 0.04) ng/mL - Impressions ITS Impressions Chest X-Ray 03/10/18 21:11 IMPRESSION: No acute process. Stable COPD changes D/ / Raymundo Nix MD / Raymundo Nix MD Interpreting Provider: Raymundo Nix MD - Assessment and plan (1) Acute exacerbation of chronic obstructive airways disease Current Visit: Yes Status: Acute Assessment and plan: Will continue steroids, give a 3 day course of azithromycin and nebulizer therapy. Smoking cessation. Check for influenza. (2) Acute and chronic respiratory failure Current Visit: Yes Status: Acute Assessment and plan: Secondary to COPD exacerbation. Will remain on Bipap for now and transition down to nasal cannula as tolerated. Obtain ABG. Qualifiers: Qualified Code(s): J96.21 - Acute and chronic respiratory failure with hypoxia (3) DVT prophylaxis Current Visit: Yes Status: Acute Assessment and plan: SubQ heparin. (4) Hypothyroidism Current Visit: Yes Status: Acute Assessment and plan: Synthroid recently increased to 100mcg daily on last admission. Will continue. Qualifiers: Hypothyroidism type: unspecified Qualified Code(s): E03.9 - Hypothyroidism, unspecified (5) Nicotine dependence with nicotine-induced disorder Current Visit: Yes Status: Chronic Assessment and plan: Extensive counseling and education given. Resources made available. Qualifiers: Nicotine product type: cigarettes Qualified Code(s): F17.219 - Nicotine dependence, cigarettes, with unspecified nicotine-induced disorders - Time Spent With Patient Total time spent is greater than 50% in coordination of care (as documented) at patient's floor/unit and/or counseling patient: Greater than 35 minutes
[2018-03-11 00:57] LABS: ABG Base Excess -4 mEq/L (-2 to 3); ABG HCO3 20 mEq/L (21-27); ABG Oxygen Saturation 100 % (95-98); ABG PCO2 34 mmHg (35-45); ABG PH 7.38 pH Units (7.32-7.45); ABG PO2 193 mmHg (85-104); ABG TCO2 21 mEq/L (20-26); Blood Gas PEEP 6 cm H2O
[2018-03-11] MEDS: Mirtazapine 15 MG TABLET PO SCH ×2 (01:21→20:05)
[2018-03-11] MEDS: Ipratropium/Albuterol Neb 3 ML IH SCH ×6 (04:00→23:57)
[2018-03-11] MEDS ORDERED: *HR* Heparin 5,000 UNIT/ML VIAL SQ SCH (06:00)
[2018-03-11] MEDS ORDERED: predniSONE 20 MG TABLET PO SCH (09:00)
[2018-03-11] MEDS: Azithromycin 250 MG TABLET PO SCH (09:24)
[2018-03-11] MEDS: Cholecalciferol (D-3) 1,000 UNIT TABLET PO SCH (09:25)
[2018-03-11 10:27] LABS: Hematocrit 33.9 % (35.3-44.9); Hemoglobin 10.8 g/dL (11.5-15.4)
--- NOTE | 2018-03-11 11:17 | Internal Med Progress Note ---
Hospitalist Progress Note - Encounter Date of Encounter: 03/11/18 Time of Encounter: 11:14 - Subjective Interval History: Patient seen and evaluated at bedside. she reports still feeling short of breath and having back pain. but states that her difficulty breathing has improved when compared to how she came to the ED. denies chest pain, productive cough, nausea or vomiting. - Exam Vitals: Temp Pulse Resp BP Pulse Ox 99.0 F 123 18 105/70 97 03/11/18 07:56 03/11/18 07:56 03/11/18 07:56 03/11/18 07:56 03/11/18 07:56 Exam: Vitals: Reviewed General: Cachectic appearing, minimal distress due to back pain. Skin: Warm and supple. HEENT: Moist mucous membranes. No conjunctivae pallor. Neck: No lymphadenopathy. No JVD. No palpable thyroid. Chest: Diminished thoracic expansion. No wheezes, rales or rhonchi. Reduced breath sounds bilaterally. Heart: Normal S1 & S2; rhythmic. No rubs or murmurs. Abdomen: Non-distended, soft and non-tender to palpation. Extremities: (+) clubbing, no cyanosis or edema. Normal distal pulses. Neurological: Awake, alert and oriented to person, place and time. No focal deficits. Psych: Affect appropriate. - Assessment and Plan (1) Acute exacerbation of chronic obstructive airways disease Current Visit: Yes Status: Acute Assessment and Plan: Patient still reporting shortness of breath, chest is cleared to auscultation. O2 sat >92% on 3 litters of O2 by nasal cannula Plan Solu-medrol 40mg/IV BID Continue Nebs Q4RT scheduled Incentive spirometry titrate for O2Sat >92% Empirically on azithromycin 500 mg by mouth daily Rapid flu test negative (2) Nicotine dependence with nicotine-induced disorder Current Visit: Yes Status: Chronic Assessment and Plan: Patient counseled about the importance of smoking cessation. We will consider starting the patient on nicotine patch (3) Hypothyroidism Current Visit: Yes Status: Chronic Assessment and Plan: On levothyroxine. We will continue home dosage. (4) Acute and chronic respiratory failure Current Visit: Yes Status: Chronic Assessment and Plan: Patient on 3 L of home oxygen. Plan of care as per #1. (5) Anemia Current Visit: Yes Status: Chronic Assessment and Plan: As per nurse patient had an episode of dark red stool. CBC Q6HR fecal occult blood test Pending those results will consider GI consult DC heparin. PPIs 40 mg IV daily. DVT Prophylaxis: No chemical DVT prophylaxis due to dark stool rule out GI bleed. Mechanical DVT prophylaxis. - Summary of Assessment and Plan Summary of Assessment and Plan: Patient to remain in the hospital for at least 24 more hours to continue monitoring respiratory status. - Time Spent with Patient Total time spent is greater than 50% in coordination of care (as documented) at patient's floor/unit and/or counseling patient: 25 - 35 minutes (31 minutes) Plan of Care Discussed with: patient (And the nurse) Internal Medicine: Result - Labs CBC & Chem 7: 03/11/18 09:53 03/10/18 21:28 Labs: Short CBC 03/10/18 03/11/18 Range/Units 21:28 09:53 WBC 8.8 (4.3-11.1) K/mcL Hgb 11.6 10.8 L (11.5-15.4) g/dL Hct 36.6 33.9 L (35.3-44.9) % Plt Count 357 (140-400) K/mcL Neutrophils # 5.3 (1.6-8.9) K/mcL BMP 03/10/18 21:28 Sodium 137 Potassium 4.0 Chloride 100 Carbon Dioxide 19 L BUN 19 Creatinine 0.97 Glucose 203 H Calcium 9.1 Cardiac Enzymes 03/10/18 Range/Units 21:28 Troponin I 0.03 (< 0.04) ng/mL - ABG Interpretation ABG results: ABG ABG pH 7.38 pH Units (7.32-7.45) 03/11/18 00:54 ABG pCO2 34 mmHg (35-45) L 03/11/18 00:54 ABG pO2 193 mmHg (85-104) H 03/11/18 00:54 ABG O2 Saturation 100 % (95-98) H 03/11/18 00:54 - Impressions Impressions Chest X-Ray 03/10/18 21:11 IMPRESSION: No acute process. Stable COPD changes D/ / Raymundo Nix MD / Raymundo Nix MD Interpreting Provider: Raymundo Nix MD Consult Discharge Plan - Plan Referrals: NONE,PCP [Primary Care Provider] - (2) Nicotine dependence with nicotine-induced disorder Qualifiers: Nicotine product type: cigarettes Qualified Code(s): F17.219 - Nicotine dependence, cigarettes, with unspecified nicotine-induced disorders (3) Hypothyroidism Qualifiers: Hypothyroidism type: unspecified Qualified Code(s): E03.9 - Hypothyroidism, unspecified (4) Acute and chronic respiratory failure Qualifiers: Respiratory failure complication: unspecified whether with hypoxia or hypercapnia Qualified Code(s): J96.20 - Acute and chronic respiratory failure, unspecified whether with hypoxia or hypercapnia (5) Anemia Qualifiers: Anemia type: unspecified type Qualified Code(s): D64.9 - Anemia, unspecified
[2018-03-11] MEDS: Pantoprazole 40 MG VIAL IVP SCH (11:51)
[2018-03-11 12:09] LABS: Hematocrit 30.2 % (35.3-44.9); Immature Granulocytes % 0.4 % (0-4); Lymphocytes # 0.8 K/mcL (0.6-4.6); Lymphocytes % 14.6 %; Mean Corpuscular HGB Conc 33.1 g/dL (31.6-35.5); Mean Corpuscular Hemoglobin 30.5 pg (28.0-33.3); Mean Corpuscular Volume 92.1 fL (83.0-100.0); Mean Platelet Volume 9.9 fL (9.4-12.4); Monocytes # 0.1 K/mcL (0.0-1.3); Monocytes % 0.9 %; Neutrophils # 4.7 K/mcL (1.6-8.9); Platelet Count 296 K/mcL (140-400); Red Blood Count 3.28 M/mcL (3.82-4.97); Red Cell Distribution Width 15.9 % (11.5-14.5); Segmented Neutrophils % 84.1 %
[2018-03-11] MEDS: traMADol 50 MG TABLET PO PRN ×2 (14:41→20:05)
[2018-03-11 17:39] LABS: Basophils % 0.1 %; Hematocrit 27.3 % (35.3-44.9); Hemoglobin 9.3 g/dL (11.5-15.4); Immature Granulocytes % 0.6 % (0-4); Lymphocytes # 1.2 K/mcL (0.6-4.6); Lymphocytes % 13.1 %; Mean Corpuscular HGB Conc 34.1 g/dL (31.6-35.5); Mean Corpuscular Hemoglobin 30.8 pg (28.0-33.3); Mean Corpuscular Volume 90.4 fL (83.0-100.0); Mean Platelet Volume 10.3 fL (9.4-12.4); Monocytes # 0.1 K/mcL (0.0-1.3); Monocytes % 1.6 %; Neutrophils # 7.5 K/mcL (1.6-8.9); Platelet Count 287 K/mcL (140-400); Red Blood Count 3.02 M/mcL (3.82-4.97); Red Cell Distribution Width 15.9 % (11.5-14.5); Segmented Neutrophils % 84.6 %
[2018-03-11] MEDS: MethylPREDNISolone 40 MG/ML VIAL IVP SCH (18:13)
[2018-03-11 23:06] LABS: Basophils % 0.1 %; Hematocrit 26.4 % (35.3-44.9); Immature Granulocytes % 0.5 % (0-4); Lymphocytes # 1.2 K/mcL (0.6-4.6); Lymphocytes % 10.2 %; Mean Corpuscular HGB Conc 34.1 g/dL (31.6-35.5); Mean Corpuscular Hemoglobin 30.9 pg (28.0-33.3); Mean Corpuscular Volume 90.7 fL (83.0-100.0); Mean Platelet Volume 10.1 fL (9.4-12.4); Monocytes # 0.2 K/mcL (0.0-1.3); Monocytes % 1.3 %; Neutrophils # 10.3 K/mcL (1.6-8.9); Platelet Count 266 K/mcL (140-400); Red Blood Count 2.91 M/mcL (3.82-4.97); Red Cell Distribution Width 15.8 % (11.5-14.5); Segmented Neutrophils % 87.9 %
[2018-03-12] MEDS: Ipratropium/Albuterol Neb 3 ML IH SCH ×3 (03:21→11:06)
[2018-03-12 03:55] LABS: Basophils % 0.1 %; Hemoglobin 8.7 g/dL (11.5-15.4); Immature Granulocytes % 0.5 % (0-4); Lymphocytes # 1.4 K/mcL (0.6-4.6); Lymphocytes % 10.4 %; Mean Corpuscular HGB Conc 33.5 g/dL (31.6-35.5); Mean Corpuscular Hemoglobin 30.7 pg (28.0-33.3); Mean Corpuscular Volume 91.9 fL (83.0-100.0); Mean Platelet Volume 9.9 fL (9.4-12.4); Monocytes # 0.3 K/mcL (0.0-1.3); Monocytes % 2.3 %; Neutrophils # 11.9 K/mcL (1.6-8.9); Platelet Count 269 K/mcL (140-400); Red Blood Count 2.83 M/mcL (3.82-4.97); Segmented Neutrophils % 86.7 %
[2018-03-12 03:57] LABS: BUN/Creatinine Ratio 36 (6-26); Blood Urea Nitrogen 32 mg/dL (6-20); Calcium 9.1 mg/dL (8.6-10.3); Carbon Dioxide 22 mEq/L (23-29); Chloride 107 mEq/L (98-107); Glucose 106 mg/dL (70-105); Magnesium 1.7 mg/dL (1.6-2.6); Osmolality,Calculated 287 (280-300); Phosphorous 3.3 mg/dL (2.7-4.5); Potassium 4.6 mEq/L (3.5-5.1); Sodium 135 mEq/L (136-145); eGFR For Non-African Americans > 60 (> 60)
[2018-03-12] MEDS: traMADol 50 MG TABLET PO PRN ×2 (05:57→13:07)
[2018-03-12] MEDS: MethylPREDNISolone 40 MG/ML VIAL IVP SCH (05:57)
[2018-03-12 07:22] VITALS: BP 107/77
--- NOTE | 2018-03-12 08:56 | Discharge Summary ---
- NOTES TO OUTPATIENT PROVIDER Notes to Outpatient Provider: Follow-up with your primary care physician within a week of hospital discharge and check a CBC. Orders not resulted at time of discharge: Pending orders 03/12/18 05:44 PRBC [Red Blood Cells] [BBK] Routine Type and Screen [BBK] Stat 03/12/18 09:30 Hemoglobin and Hematocrit [HEME] Timed Date of Encounter: 03/12/18 Time of Encounter: 08:54 - Discharge Diagnosis (1) Acute exacerbation of chronic obstructive airways disease Priority: Primary Status: Resolved (2) Nicotine dependence with nicotine-induced disorder Priority: Secondary Status: Chronic Qualifiers: Nicotine product type: cigarettes Qualified Code(s): F17.219 - Nicotine dependence, cigarettes, with unspecified nicotine-induced disorders (3) Hypothyroidism Priority: Secondary Status: Chronic Qualifiers: Hypothyroidism type: unspecified Qualified Code(s): E03.9 - Hypothyroidism, unspecified (4) Acute and chronic respiratory failure Priority: Secondary Status: Chronic Qualifiers: Respiratory failure complication: unspecified whether with hypoxia or hypercapnia Qualified Code(s): J96.20 - Acute and chronic respiratory failure, unspecified whether with hypoxia or hypercapnia (5) Anemia Priority: Secondary Status: Chronic Qualifiers: Anemia type: unspecified type Qualified Code(s): D64.9 - Anemia, unspecified Hospital course: Ms. Christian is a 57 year old female past medical history significant for chronic hypoxemic respiratory failure on 3 L of home oxygen, COPD, arthritis, hypothyroidism, GERD and osteoporosis. Patient presented to the emergency room via EMS due to complaining of shortness of breath off 1 day duration. During these admission patient was managed for COPD exacerbation with IV steroids, nebs plus empiric antibiotic coverage. Acute symptoms resolved, and patient is hemodynamically stable to be discharged home. - Time Spent with Patient Total time spent providing and/or coordinating discharge services: Less than 30 minutes (25 minutes) - Discharge Medications Prescriptions: Azithromycin [Zithromax] 500 mg PO DAILY 4 Days #4 tablet Home Medications: Levothyroxine [Synthroid] 88 mcg PO Q48H 11/27/15 [History] Atorvastatin Calcium [Lipitor] 20 mg PO HS 09/23/17 [History] Levothyroxine [Synthroid] 75 mcg PO Q48H 09/23/17 [History] Albuterol Sulfate [Proair Hfa] 2 puff IH Q4H PRN 01/21/18 [History] Fluticasone/Vilanterol [Breo Ellipta 100-25 Mcg INH] 1 puff IH DAILY 01/21/18 [History] Ipratropium/Albuterol Neb [Duoneb] 3 ml IH Q4HR PRN 01/21/18 [History] Cholecalciferol (D-3) [Vitamin D] 5,000 unit PO DAILY 02/16/18 [History] Lisinopril [Zestril] 10 mg PO DAILY 02/16/18 [History] Mirtazapine [Remeron] 15 mg PO DAILY 02/16/18 [History] Escitalopram [Lexapro] 10 mg PO DAILY 03/11/18 [History] Azithromycin [Zithromax] 500 mg PO DAILY 4 Days #4 tablet 03/12/18 [Rx] Allergies/Adverse Reactions: Allergy/AdvReac Type Severity Reaction Status Date / Time morphine AdvReac Hives Verified 03/11/18 11:22 Date of admission: 03/10/18 23:44 Primary care physician: PCP NONE - Constitutional Vitals: Temp Pulse Resp BP Pulse Ox 97.6 F 64 17 107/77 95 03/12/18 07:21 03/12/18 07:21 03/12/18 07:21 03/12/18 07:21 03/12/18 05:00 Exam: Vitals: Reviewed General: Cachectic appearing, in no acute distress. Skin: Warm and supple. HEENT: Moist mucous membranes. No conjunctivae pallor. Neck: No lymphadenopathy. No JVD. No carotid bruits. No palpable thyroid. Chest: Clear to auscultation bilaterally, good air entries bilaterally. No wheezes, rales or rhonchi. Heart: Normal S1 & S2; rhythmic. No rubs or murmurs. Abdomen: Non-distended, soft and non-tender to palpation. Extremities: (+) clubbing, no cyanosis or edema. No calf tenderness. Normal distal pulses. Neurological: Awake, alert and oriented to person, place and time. No focal deficits. Psych: Affect appropriate. - Patient Status Disposition: Home, Self-Care Condition: Good Functional capacity at discharge: independent ambulation Overall status at discharge: patient is progressing back to baseline - Discharge Instructions Follow Up With: NONE,PCP [Primary Care Provider] - - Diet and Activity Activity: resume usual activities as tolerated Diet: advance to your usual diet
[2018-03-12] MEDS: Azithromycin 250 MG TABLET PO SCH (09:59)
[2018-03-12] MEDS: Pantoprazole 40 MG VIAL IVP SCH (10:00)
[2018-03-12] MEDS: Cholecalciferol (D-3) 1,000 UNIT TABLET PO SCH (10:00)
[2018-03-12 10:03] LABS: Hematocrit 26.8 % (35.3-44.9); Hemoglobin 8.9 g/dL (11.5-15.4)
--- NOTE | 2018-03-12 13:50 | Physician Discharge Referral ---
Home Health/Hosp Referral Info Transfer to: Home Health - Diagnosis (1) Acute exacerbation of chronic obstructive airways disease Priority: Primary Status: Resolved (2) Nicotine dependence with nicotine-induced disorder Priority: Secondary Status: Chronic (3) Hypothyroidism Priority: Secondary Status: Chronic (4) Acute and chronic respiratory failure Priority: Secondary Status: Chronic (5) Anemia Priority: Secondary Status: Chronic - Respiratory Orders Oxygen / L per min (3 litters) Smoking Cessation: Smoking cessation has been advised. For more information, call the [place] Tobacco Quit Line at 5-347-GAMC-NOW. - Diet/Nutrition Diet/Nutrition Orders: Regular - Activity Activity Orders: Ambulate - Services Needed Following services are medically necessary services: Nursing, Home Health Aide - Transfer Medications Prescriptions: Azithromycin [Zithromax] 500 mg PO DAILY 4 Days #4 tablet Home Medications: Levothyroxine [Synthroid] 88 mcg PO Q48H 11/27/15 [History] Atorvastatin Calcium [Lipitor] 20 mg PO HS 09/23/17 [History] Levothyroxine [Synthroid] 75 mcg PO Q48H 09/23/17 [History] Albuterol Sulfate [Proair Hfa] 2 puff IH Q4H PRN 01/21/18 [History] Fluticasone/Vilanterol [Breo Ellipta 100-25 Mcg INH] 1 puff IH DAILY 01/21/18 [History] Ipratropium/Albuterol Neb [Duoneb] 3 ml IH Q4HR PRN 01/21/18 [History] Cholecalciferol (D-3) [Vitamin D] 5,000 unit PO DAILY 02/16/18 [History] Lisinopril [Zestril] 10 mg PO DAILY 02/16/18 [History] Mirtazapine [Remeron] 15 mg PO DAILY 02/16/18 [History] Escitalopram [Lexapro] 10 mg PO DAILY 03/11/18 [History] Azithromycin [Zithromax] 500 mg PO DAILY 4 Days #4 tablet 03/12/18 [Rx] Allergies/Adverse Reactions: Allergy/AdvReac Type Severity Reaction Status Date / Time morphine AdvReac Hives Verified 03/11/18 11:22 Certification: Further, I certify that my clinical findings support that this patient is homebound (i.e. absences from home require considerable and taxing effort and are for medical reasons or mu-ism services or infrequently or short duration when for other reasons) because: Homebound Reason: Patient requires assistance of a person or device to safely leave home Attestation: My signature below is to certify that this patient is under my care and that I, or nurse practitioner, or a physician's catering administrative assistant working with me, has a [id number] encounter with this patient.
--- NOTE | 2018-03-14 19:29 | Electrocardiograph Report ---
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
== END 2018-03-12 13:32 | disposition home or self-care (01) ==
LOC: 2NENU 21:06 → EMEROOARM 21:06 → SUATTDRO 23:44 → 2NENU 03-11 00:20
PROVIDERS: ADMIT Internal Medicine; ATTEND Internal Medicine

== ENCOUNTER 2018-08-29 18:58 | Observation (INO) ==
[2018-08-29] MEDS ORDERED: predniSONE 20 MG TABLET PO STA (19:55)
[2018-08-29] MEDS ORDERED: Ipratropium/Albuterol Neb 3 ML IH STA (19:55)
[2018-08-29] MEDS ORDERED: 0.9 % Sodium Chloride 500 ML IVC ONE (19:57)
--- NOTE | 2018-08-29 19:59 | Emergency Department Note ---
Disposition Clinical Impression: COPD exacerbation Disposition: Admitted As Inpatient Condition: Good General Adult HPI - General Chief complaint: ED Shortness of Breath/Dyspnea Stated complaint: SOB Time Seen by Provider: 08/29/18 19:13 Source: patient, EMS Limitations: no limitations - History of Present Illness HPI Narrative: Patient presents with a couple of days of cough and shortness of breath. She initially was bringing up some green sputum, but now is unable to bring up. S ymptoms exactly replicate her prior COPD exacerbations except the symptoms are a little bit worse. She has not had fever. No chest pain. Her oral intake has been somewhat decreased. She is thirsty and asking for water currently. Denies abdominal pain or leg pain. She has been using oxygen at home, which she usually does not have to do. She does not have nebulizers at home because her dog chewed through her nebulizer hose. Pain Scale: 9 - Related Data Home Medications Medication Instructions Recorded Confirmed Levothyroxine [Synthroid] 88 mcg PO DAILY 11/27/15 08/30/18 Albuterol Sulfate [Albuterol 2 puff IH Q4H PRN 08/30/18 08/30/18 Inhaler] Previous Rx's Medication Instructions Recorded predniSONE [PredniSONE] 40 mg PO DAILY #5 tablet 09/01/18 Allergies Allergy/AdvReac Type Severity Reaction Status Date / Time morphine AdvReac Hives Verified 03/11/18 11:22 All systems ED: reviewed and negative except as stated. Past Medical History - Past Medical History Medical history: Reports: arthritis, COPD, GERD, osteoporosis, thyroid disease, other Surgical history: Reports: other Psychiatric history: Reports: anxiety - Social History Smoking Status: Current every day smoker Smokeless Tobacco Status: No (not smoked for 4 days) Alcohol use: Reports: occasionally Drug use: Reports: none Physical Exam Vital signs noted please see nurse's notes. Gen.: Cachectic patient lying in bed who appears nontoxic. Head: Atraumatic, normocephalic. Eyes: Sclerae anicteric. ENT: Mucous membranes are tacky. Dentures in place. Heart: Mildly tachycardic and regular without appreciable murmur. Lungs: Mildly tachypneic with prolonged expiratory phase. Bibasilar rales and diffuse expiratory wheezes are present. Breath sounds are diminished but present throughout both lung alejandre. Abdomen: Soft, nontender, nondistended, no guarding or peritoneal signs. Skin: Warm and dry without rash. Neurologic: Awake, alert with normal speech and mental status. Cranial nerves grossly intact. No focal deficits or lateralizing signs. Psychiatric: Somewhat anxious. Musculoskeletal: No peripheral edema. No signs of trauma or DVT. Peripheral Vascular: Radial pulses 2+ and symmetrical b/l. - General Limitations: no limitations General appearance: alert, anxious Course Vital Signs Temperature 98.1 F 08/29/18 19:11 Pulse Rate 118 08/29/18 19:11 Respiratory Rate 24 08/29/18 19:11 Blood Pressure 187/115 08/29/18 19:11 O2 Sat by Pulse Oximetry 94 08/29/18 19:11 Temperature 97.5 F L 09/01/18 12:01 Pulse Rate 105 09/01/18 12:01 Respiratory Rate 14 09/01/18 12:01 Blood Pressure 123/92 09/01/18 12:01 O2 Sat by Pulse Oximetry 95 09/01/18 12:01 Oxygen Delivery Oxygen Delivery Nasal Cannula Medical Decision Making - [facility] Narrative Medical decision making narrative: Patient had some improvement with initiation of nebulizers in the emergency department. Wheezing actually became more audible as her airways opened up somewhat treatment. However, clinically, there was little change. She was not comfortable with discharge home and requested admission to the hospital. The hospitalist has accepted her for admission for treatment of her COPD exacerbation. - Lab Data Result diagrams: 09/01/18 04:30 09/01/18 04:30 Lab Results 08/29/18 08/29/18 Range/Units 21:19 21:19 WBC 5.4 (4.3-11.1) K/mcL RBC 5.10 H (3.82-4.97) M/mcL Hgb 14.2 (11.5-15.4) g/dL Hct 44.9 (35.3-44.9) % MCV 88.0 (83.0-100.0) fL MCH 27.8 L (28.0-33.3) pg MCHC 31.6 (31.6-35.5) g/dL RDW 15.5 H (11.5-14.5) % Plt Count 376 (140-400) K/mcL MPV 10.1 (9.4-12.4) fL Sodium 133 L (136-145) mEq/L Potassium 3.6 (3.5-5.1) mEq/L Chloride 99 (98-107) mEq/L Carbon Dioxide 26 (23-29) mEq/L BUN 8 (6-20) mg/dL Creatinine 0.68 (0.60-1.20) mg/dL Est GFR ( Amer) > 60 (> 60) Est GFR (Non-Af Amer) > 60 (> 60) BUN/Creatinine Ratio 12 (6-26) Glucose 111 H (70-105) mg/dL Calculated Osmolality 275 L (280-300) Calcium 10.2 (8.6-10.3) mg/dL - EKG Data EKG #1 EKG attestation: Yes I reviewed and interpreted this EKG. EKG shows normal: sinus rhythm Rate: tachycardia (Rate 109, normal intervals and QRS duration. She has biatrial enlargement and LVH. No acute ischemic changes.)
[2018-08-29] MEDS ORDERED: Albuterol 2.5 MG/3 ML NEBULIZER IH STA ×2 (21:02→22:54)
[2018-08-29] MEDS ORDERED: Ibuprofen 800 MG TABLET PO STA (21:03)
[2018-08-29] MEDS ORDERED: Acetaminophen 325 MG TABLET PO ONE (21:04)
[2018-08-29 22:02] LABS: Hematocrit 44.9 % (35.3-44.9); Hemoglobin 14.2 g/dL (11.5-15.4); Mean Corpuscular HGB Conc 31.6 g/dL (31.6-35.5); Mean Corpuscular Hemoglobin 27.8 pg (28.0-33.3); Mean Platelet Volume 10.1 fL (9.4-12.4); Platelet Count 376 K/mcL (140-400); Red Cell Distribution Width 15.5 % (11.5-14.5)
[2018-08-29] MEDS ORDERED: Albuterol 2.5 MG/3 ML NEBULIZER ONE (22:07)
[2018-08-29 22:20] LABS: BUN/Creatinine Ratio 12 (6-26); Blood Urea Nitrogen 8 mg/dL (6-20); Calcium 10.2 mg/dL (8.6-10.3); Carbon Dioxide 26 mEq/L (23-29); Chloride 99 mEq/L (98-107); Glucose 111 mg/dL (70-105); Osmolality,Calculated 275 (280-300); Potassium 3.6 mEq/L (3.5-5.1); Sodium 133 mEq/L (136-145); eGFR For Non-African Americans > 60 (> 60)
[2018-08-30] MEDS ORDERED: Albuterol 2.5 MG/3 ML NEBULIZER IH PRN (01:01)
[2018-08-30] MEDS: Ipratropium/Albuterol Neb 3 ML IH SCH ×5 (04:04→19:41)
[2018-08-30] MEDS ORDERED: Naloxone 0.4 MG/ML INJ IVP PRN (05:13)
--- NOTE | 2018-08-30 05:19 | Internal Med History&Physical ---
Date of Encounter: 08/30/18 Time of Encounter: 05:00 Internal Medicine - H&P: HPI Chief complaint: Shortness of breath Admitted From: Emergency Dept Plans for Post Hospital Care: Home History of present illness: Ms. Christian is a 57 year old female Patient presented to the emergency room for shortness of breath. She notes that he has had a productive cough lately however she is been having difficulty with coughing more recently. She has a history of COPD exacerbations in the past, and says that her symptoms have been progressively worsening over the last week as the patient has been laying on her couch with her oxygen concentrator. She indicates that she has developed some back pain due to this as well. She notes that she has transportation difficulties getting to her doctor, she has not been able to have her medications refilled and her his not around to help her. She does not drive. She also indicates that her cat chewed her nebulizer to answer she is unable to use that. She has also run out of her inhaler medications. She eventually called the ambulance who brought her to the hospital for further evaluation. Upon arrival to the emergency room, patient's vital signs were noted to indicate an elevated heart rate, respiratory rate and blood pressure. Patient's oxygen saturation was 94% on 3 L. CBC demonstrated no abnormalities, and BMP was also essentially normal. A chest x-ray was ordered that showed no acute cardiopulmonary process. EKG revealed no ischemic changes. She was given a 500 mL bolus of IV fluids, albuterol nebulizer treatment as well as a DuoNeb treatment. She was started on 40 mg of prednisone in the emergency room as well. She was treated with 650 mg of Tylenol for her back pain. She was sent to the medical floor for further management. Upon my assessment, patient states that she is still experiencing some back pain. She does have a listed allergy to morphine. She currently denies chest pain, abdominal pain, nausea, vomiting, diarrhea and constipation. She has a cough, but has become nonproductive due to it feeling sick in quality. She has a significant past medical history of hypothyroidism, COPD, nicotine use. She has had COPD exacerbation admissions before. She was last admitted to the hospital in February for COPD exacerbation. She is a heavy smoker, but states that she has quit as of 3 days ago. She declines nicotine patch. She states that she has significant family history of COPD in her father, and her mother had some form of cancer. She is a full code but was initially hesitant about this decision. She eventually decided that she wanted to be full code. Past Med Surg Social Fam HX - Past Medical History Medical history: arthritis, COPD, GERD, osteoporosis, thyroid disease, other Additional medical history: bronchitis Psychiatric history: anxiety - Past Surgical History Surgical History: other Additional surgical history: Radioactive thyroid removal - Social History Smoking Status: Current some day smoker Smokeless Tobacco Status: No (not smoked for 4 days) Alcohol use: none Drug use: none - Family History Mother Living Status: Age at : 47 Cause of : CA Hx Family Cardiac Disorders: No Hx Family Respiratory Disorders: No Hx Family Cancer: Yes (Type unknown) Hx Family GI Disorders: No Hx Family Genitourinary Disorders: No Hx Family Endocrine Disorder: No Hx Family Musculoskeletal Disorders: No Hx Family Neuromuscular Disorders: No Hx Family Neurologic Disorders: No Hx Family HEENT Disorders: No Hx Family Autoimmune Disorders: No Hx Family Reproductive Disorders: No Hx Family Psychosocial Disorders: No Hx Family Medical Disorders: No Father Living Status: Age at : 62 Cause of : Emphysema Hx Family Cardiac Disorders: No Hx Family Respiratory Disorders: Yes (Emphysemma) Hx Family Cancer: No Hx Family GI Disorders: No Hx Family Genitourinary Disorders: No Hx Family Endocrine Disorder: No Hx Family Musculoskeletal Disorders: No Hx Family Neuromuscular Disorders: No Hx Family Neurologic Disorders: No Hx Family HEENT Disorders: No Hx Family Autoimmune Disorders: No Hx Family Reproductive Disorders: No Hx Family Psychosocial Disorders: No Hx Family Medical Disorders: No Internal Medicine - H&P: Meds Levothyroxine [Synthroid] 88 mcg PO Q48H 11/27/15 [History] Atorvastatin Calcium [Lipitor] 20 mg PO HS 09/23/17 [History] Levothyroxine [Synthroid] 75 mcg PO Q48H 09/23/17 [History] Albuterol Sulfate [Proair Hfa] 2 puff IH Q4H PRN 01/21/18 [History] Fluticasone/Vilanterol [Breo Ellipta 100-25 Mcg INH] 1 puff IH DAILY 01/21/18 [History] Ipratropium/Albuterol Neb [Duoneb] 3 ml IH Q4HR PRN 01/21/18 [History] Cholecalciferol (D-3) [Vitamin D] 5,000 unit PO DAILY 02/16/18 [History] Lisinopril [Zestril] 10 mg PO DAILY 02/16/18 [History] Mirtazapine [Remeron] 15 mg PO DAILY 02/16/18 [History] Escitalopram [Lexapro] 10 mg PO DAILY 03/11/18 [History] Allergy/AdvReac Type Severity Reaction Status Date / Time morphine AdvReac Hives Verified 03/11/18 11:22 All Systems PM: A 10-system review of systems was performed and is negative for pertinent findings except as documented above in the HPI. - Constitutional Vitals: Temp Pulse Resp BP Pulse Ox 97.7 F 99 16 138/93 97 08/30/18 02:42 08/30/18 02:42 08/30/18 04:28 08/30/18 02:42 08/30/18 04:28 General appearance: Present: cooperative, mild distress, A&O X 3, pleasant, underweight, answers questions appropriately Exam: - - Head Head exam: Present: normal inspection - Eye Eye exam: Present: EOMI, normal appearance - Respiratory Respiratory exam: Present: decreased breath sounds, respiratory distress, wheezes. Absent: CTAB, rales, rhonchi - Cardiovascular Cardiovascular exam: Present: RRR. Absent: diastolic murmur, systolic murmur - GI/Abdominal GI/Abdominal exam: Present: normal bowel sounds, soft. Absent: tenderness - Extremities Exam Extremities exam: Present: warm, radial pulses palpable and symmetrical. Absent: calf tenderness, pedal edema, tenderness - Neurological Exam Neurological exam: Present: no focal deficits, strengths equal and symetr throughout. Absent: motor sensory deficit, facial droop, speech deficit - Skin Skin exam: Present: dry, normal color, warm Internal Med - H&P Results - Labs CBC & Chem 7: 08/30/18 05:55 08/30/18 05:55 Labs: Short CBC 08/29/18 Range/Units 21:19 WBC 5.4 (4.3-11.1) K/mcL Hgb 14.2 (11.5-15.4) g/dL Hct 44.9 (35.3-44.9) % Plt Count 376 (140-400) K/mcL BMP 08/29/18 21:19 Sodium 133 L Potassium 3.6 Chloride 99 Carbon Dioxide 26 BUN 8 Creatinine 0.68 Glucose 111 H Calcium 10.2 - Impressions ITS Impressions Chest X-Ray 08/29/18 19:55 IMPRESSION: No acute cardiopulmonary process D/ / Ramu Moody / Ramu Moody Interpreting Provider: Ramu Moody - Assessment and Plan (1) COPD exacerbation Current Visit: No Status: Acute Assessment and plan: Patient has had multiple admissions for this in the past. She has required BiPAP in the past as well. Her shortness of breath has improved after breathing treatments. Her oxygen saturations have been stable on nasal cannula oxygen. Continue breathing treatments Continue IV steroids Azithromycin IV Consider BiPAP treatment while here in the hospital. Social work consult to help patient obtain medications and new equipment which has been destroyed by her cat Guaifenesin for cough as needed (2) Low back pain Current Visit: No Status: Resolved Assessment and plan: Patient has back pain which she says is secondary to laying on her couch and usi ng her Oxymizer for the past 1 week. She has a listed allergy to morphine. Tylenol as needed for pain Qualifiers: Chronicity: acute Back pain laterality: midline Sciatica presence: without sciatica Qualified Code(s): M54.5 - Low back pain (3) Tobacco abuse Current Visit: No Status: Chronic Assessment and plan: Patient declines nicotine patch (4) DVT prophylaxis Current Visit: No Status: Acute Assessment and plan: Subcutaneous heparin - Time Spent With Patient Total time spent is greater than 50% in coordination of care (as documented) at patient's floor/unit and/or counseling patient: Greater than 35 minutes
[2018-08-30] MEDS: Acetaminophen 325 MG TABLET PO PRN ×2 (05:37→18:18)
[2018-08-30 06:45] LABS: Hematocrit 40.5 % (35.3-44.9); Mean Corpuscular HGB Conc 32.1 g/dL (31.6-35.5); Mean Corpuscular Hemoglobin 28.3 pg (28.0-33.3); Mean Platelet Volume 10.1 fL (9.4-12.4); Platelet Count 396 K/mcL (140-400); Red Cell Distribution Width 15.7 % (11.5-14.5)
[2018-08-30 07:01] LABS: BUN/Creatinine Ratio 12 (6-26); Blood Urea Nitrogen 9 mg/dL (6-20); Calcium 10.4 mg/dL (8.6-10.3); Carbon Dioxide 26 mEq/L (23-29); Chloride 98 mEq/L (98-107); Glucose 195 mg/dL (70-105); Osmolality,Calculated 278 (280-300); Potassium 3.4 mEq/L (3.5-5.1); Sodium 132 mEq/L (136-145); eGFR For Non-African Americans > 60 (> 60)
[2018-08-30] MEDS: Azithromycin 500 MG in D5% in Water 250 ML IVPB SCH (08:36)
[2018-08-30] MEDS: predniSONE 20 MG TABLET PO SCH (08:36)
[2018-08-30] MEDS ORDERED: ALPRAZolam 0.5 MG TABLET PO ONE ×2 (12:21→20:02)
[2018-08-30 12:40] LABS: Magnesium 1.7 mg/dL (1.6-2.6); Phosphorous 3.1 mg/dL (2.7-4.5)
--- NOTE | 2018-08-30 13:55 | Event Note ---
Date of Encounter: 08/30/18 Time of Encounter: 13:52 Patient is a 57y/o female admitted for COPD exacerbation Pt seen and examined earlier today with RN present at bedside. Pt appears to be severely anxious and noted to be tachypneic, tachycardic. Saturating appropriately on nasal cannula. vitals were done during her anxiety attack and pt was noted to be severely hypertensive. Pt received a dose of Xanax. RN requested to repeat vitals shortly after Xanax administration. Will continue systemic steroids, bronchodilator support, O2 supplementation Will closely monitor BP and respiratory status labs and vitals reviewed respiratory viral panel has been ordered. Care plan discussed in detail with RN/patient
[2018-08-30 14:15] LABS: Adenovirus Not Detected (Not Detect); Bordetella Pertussis Not Detected (Not Detect); Coronavirus 229E Not Detected (Not Detect); Coronavirus HKU1 Not Detected (Not Detect); Coronavirus NL63 Not Detected (Not Detect); Coronavirus OC43 Not Detected (Not Detect); Human Metapneumovirus Not Detected (Not Detect); Human Rhinovirus/Enterovirus Not Detected (Not Detect); Influenza A Subtype 2009 H1 Not Detected (Not Detect); Influenza A Untypeable Not Detected (Not Detect); Influenza B Not Detected (Not Detect); Parainfluenza Virus 1 Not Detected (Not Detect); Parainfluenza Virus 2 Not Detected (Not Detect); Parainfluenza Virus 3 Not Detected (Not Detect); Parainfluenza Virus 4 Not Detected (Not Detect); Respiratory Syncytial Virus Not Detected (Not Detect)
[2018-08-30 14:16] LABS: Chlamydophila pneumoniae Not Detected (Not Detect); Mycoplasma pneumoniae Not Detected (Not Detect)
[2018-08-30] MEDS: *HR* Heparin 5,000 UNIT/ML VIAL SQ SCH (16:26)
[2018-08-31] MEDS: Ipratropium/Albuterol Neb 3 ML IH SCH (00:25)
[2018-08-31] MEDS: ALPRAZolam 0.25 MG TABLET PO PRN ×4 (01:37→22:05)
[2018-08-31] MEDS ORDERED: Ipratropium Neb 0.5 MG NEBULIZER IH SCH (04:00)
[2018-08-31] MEDS: Ipratropium Neb 0.5 MG NEBULIZER IH SCH ×6 (04:02→23:48)
[2018-08-31] MEDS: Levalbuterol Neb 0.63 MG/3 ML IH SCH ×6 (04:02→23:48)
[2018-08-31 04:59] LABS: Basophils % 0.3 %; Eosinophils % 0.1 %; Immature Granulocytes % 0.4 % (0-4); Lymphocytes # 1.6 K/mcL (0.6-4.6); Lymphocytes % 22.4 %; Mean Corpuscular HGB Conc 31.7 g/dL (31.6-35.5); Mean Corpuscular Hemoglobin 28.1 pg (28.0-33.3); Mean Corpuscular Volume 88.6 fL (83.0-100.0); Mean Platelet Volume 9.8 fL (9.4-12.4); Monocytes % 13.9 %; Neutrophils # 4.4 K/mcL (1.6-8.9); Platelet Count 342 K/mcL (140-400); Red Blood Count 3.95 M/mcL (3.82-4.97); Red Cell Distribution Width 15.5 % (11.5-14.5); Segmented Neutrophils % 62.9 %
[2018-08-31 05:00] LABS: Hemoglobin 11.1 g/dL (11.5-15.4)
[2018-08-31 05:18] LABS: BUN/Creatinine Ratio 14 (6-26); Blood Urea Nitrogen 9 mg/dL (6-20); Calcium 10.5 mg/dL (8.6-10.3); Carbon Dioxide 29 mEq/L (23-29); Chloride 101 mEq/L (98-107); Glucose 109 mg/dL (70-105); Magnesium 1.6 mg/dL (1.6-2.6); Osmolality,Calculated 279 (280-300); Phosphorous 2.9 mg/dL (2.7-4.5); Potassium 3.9 mEq/L (3.5-5.1); Sodium 135 mEq/L (136-145); eGFR For Non-African Americans > 60 (> 60)
[2018-08-31] MEDS: *HR* Heparin 5,000 UNIT/ML VIAL SQ SCH ×2 (05:34→16:18)
[2018-08-31] MEDS: Menthol 9.1 MG LOZENGE PO PRN ×2 (05:41→22:08)
[2018-08-31] MEDS: Azithromycin 500 MG in D5% in Water 250 ML IVPB SCH (09:45)
[2018-08-31] MEDS: predniSONE 20 MG TABLET PO SCH (09:45)
--- NOTE | 2018-08-31 09:52 | Electrocardiograph Report ---
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
--- NOTE | 2018-08-31 13:05 | Internal Med Progress Note ---
Hospitalist Progress Note - Encounter Date of Encounter: 08/31/18 Time of Encounter: 13:01 - Subjective Interval History: Patient seen and examined with RN present at bedside. Pt sitting in bed and saturating well on nasal cannula Remains anxious today but improved from previous day. States she wears 3L NC at home. Reports of living alone and does not drive. States she is not able to make it to her PCP's appointments due to lack of transportation. Reports of not having any assistance from any family at home. Uses a walker at home. Will obtain social human services assistants consult for assistance with transportation on discharge. Pt states she used to be on Xanax and many other prescribed meds however due to lack of follow up with PCP, she is currently not on any meds at home. As per RN, pt is noted to become severely dyspneic with minimal ambulation Ten point ROS is negative except as listed above - Exam Vitals: Temp Pulse Resp BP Pulse Ox 97.5 F L 100 16 143/95 92 08/31/18 12:37 08/31/18 12:37 08/31/18 12:37 08/31/18 12:37 08/31/18 12:37 Exam: General: No acute distress, AAO x 3, frail appearing female, cachetic HEENT: EOMI, NC/AT, no scleral icterus Respiratory: Diminshed breath sounds, bilateral upper lobe expiratory wheezing, no rales Cardiovascular: Regular, Rate, Rhythm, No murmurs GI: Soft, Non tender, non distended, normal bowel sounds Ext: No edema, no tenderness, positive pulses Neuro: AAO x 3, no focal deficits psych: anxious rest of the clinical exam is non contributory - Summary of Assessment and Plan Summary of Assessment and Plan: Patient is a 57y/o female admitted for acute respiratory distress. Assessment/Plan: 1. Acute respiratory distress secondary to COPD exacerbation continue IV steroids bronchodilator support respiratory viral panel is negative O2 supplementation pt's respiratory distress is very anxiety driven, she reports of being on xanax but has not been able to get refills on her home meds closely monitor respiratory status xanax prn anxiety 2. Hx of Hypothyroidism continue levothyroxine 3. Tobacco abuse smoking cessation counseling provided pt refused nicotine supplementation 4. Malnutrition nutrition evaluation requested DVT ppx: Heparin SQ Care plan discussed with patient/RN - Time Spent with Patient Total time spent is greater than 50% in coordination of care (as documented) at patient's floor/unit and/or counseling patient: 25 - 35 minutes Internal Medicine: Result - Labs CBC & Chem 7: 08/31/18 04:39 08/31/18 04:39 Labs: Short CBC 08/31/18 Range/Units 04:39 WBC 6.9 (4.3-11.1) K/mcL Hgb 11.1 L D (11.5-15.4) g/dL Hct 35.0 L (35.3-44.9) % Plt Count 342 (140-400) K/mcL Neutrophils # 4.4 (1.6-8.9) K/mcL BMP 08/31/18 04:39 Sodium 135 L Potassium 3.9 Chloride 101 Carbon Dioxide 29 BUN 9 Creatinine 0.65 Glucose 109 H Calcium 10.5 H Consult Discharge Plan - Plan Referrals: Julia Dennis [Primary Care Provider] -
[2018-08-31] MEDS: MethylPREDNISolone 40 MG/ML VIAL IVP SCH (16:18)
[2018-09-01] MEDS: Acetaminophen 325 MG TABLET PO PRN (00:04)
[2018-09-01] MEDS ORDERED: Melatonin 3 MG TABLET PO PRN (03:31)
[2018-09-01] MEDS: Levalbuterol Neb 0.63 MG/3 ML IH SCH ×3 (04:14→11:00)
[2018-09-01] MEDS: Ipratropium Neb 0.5 MG NEBULIZER IH SCH ×3 (04:14→11:00)
[2018-09-01] MEDS: Menthol 9.1 MG LOZENGE PO PRN ×2 (04:15→06:23)
[2018-09-01 05:07] LABS: Basophils % 0.3 %; Hematocrit 36.4 % (35.3-44.9); Hemoglobin 11.5 g/dL (11.5-15.4); Immature Granulocytes % 1.1 % (0-4); Lymphocytes # 1.2 K/mcL (0.6-4.6); Lymphocytes % 12.1 %; Mean Corpuscular HGB Conc 31.6 g/dL (31.6-35.5); Mean Corpuscular Hemoglobin 28.1 pg (28.0-33.3); Mean Platelet Volume 9.8 fL (9.4-12.4); Monocytes # 0.5 K/mcL (0.0-1.3); Monocytes % 5.2 %; Neutrophils # 7.9 K/mcL (1.6-8.9); Platelet Count 412 K/mcL (140-400); Red Blood Count 4.09 M/mcL (3.82-4.97); Red Cell Distribution Width 15.5 % (11.5-14.5); Segmented Neutrophils % 81.3 %
[2018-09-01 05:26] LABS: BUN/Creatinine Ratio 23 (6-26); Blood Urea Nitrogen 14 mg/dL (6-20); Calcium 10.1 mg/dL (8.6-10.3); Carbon Dioxide 28 mEq/L (23-29); Chloride 99 mEq/L (98-107); Glucose 114 mg/dL (70-105); Magnesium 1.5 mg/dL (1.6-2.6); Osmolality,Calculated 277 (280-300); Phosphorous 2.7 mg/dL (2.7-4.5); Sodium 133 mEq/L (136-145); eGFR For Non-African Americans > 60 (> 60)
[2018-09-01] MEDS: MethylPREDNISolone 40 MG/ML VIAL IVP SCH (05:44)
[2018-09-01] MEDS: *HR* Heparin 5,000 UNIT/ML VIAL SQ SCH (05:44)
[2018-09-01] MEDS: ALPRAZolam 0.25 MG TABLET PO PRN (08:16)
[2018-09-01] MEDS: Azithromycin 500 MG in D5% in Water 250 ML IVPB SCH (08:17)
[2018-09-01 12:03] VITALS: BP 123/92
--- NOTE | 2018-09-01 13:52 | Physician Discharge Referral ---
Home Health/Hosp Referral Info Transfer to: Home Health Provider in Charge Post Discharge: PCP - Diagnosis (1) Acute and chronic respiratory failure with hypoxia Priority: Primary Status: Resolved (2) COPD exacerbation Priority: Primary Status: Acute - Respiratory Orders Smoking Cessation: Smoking cessation has been advised. For more information, call the [place] Tobacco Quit Line at 5-750-HTYO-NOW. - Services Needed Following services are medically necessary services: Nursing, Home Health Aide, Physical Therapy - Transfer Medications Prescriptions: predniSONE [PredniSONE] 40 mg PO DAILY #5 tablet Home Medications: Levothyroxine [Synthroid] 88 mcg PO DAILY 11/27/15 [History] Albuterol Sulfate [Albuterol Inhaler] 2 puff IH Q4H PRN 08/30/18 [History] predniSONE [PredniSONE] 40 mg PO DAILY #5 tablet 09/01/18 [Rx] Allergies/Adverse Reactions: Allergy/AdvReac Type Severity Reaction Status Date / Time morphine AdvReac Hives Verified 03/11/18 11:22 Certification: Further, I certify that my clinical findings support that this patient is homebound (i.e. absences from home require considerable and taxing effort and are for medical reasons or mormonism services or infrequently or short duration when for other reasons) because: Homebound Reason: Patient requires assistance of a person or device to safely leave home Attestation: My signature below is to certify that this patient is under my care and that I, or nurse practitioner, or a physician's payroll human resources assistant working with me, has a [id number] encounter with this patient.
--- NOTE | 2018-09-01 13:59 | Discharge Summary ---
- NOTES TO OUTPATIENT PROVIDER Notes to Outpatient Provider: Patient was admitted for COPD exacerbation. Responded well to systemic steroids. Pt's respiratory distress was exacerbated with underlying anxiety. Please evaluate the patient and adjust patient's medications for anxiety as needed. Date of Encounter: 09/01/18 Time of Encounter: 13:53 - Discharge Diagnosis (1) Acute and chronic respiratory failure with hypoxia Priority: Primary Status: Resolved (2) COPD exacerbation Priority: Primary Status: Acute Hospital course: Ms. Christian is a 57 year old female with PMH of COPD on home oxygen, hypothyroidism, medical noncompliance who was admitted for acute respiratory distress with hypoxia secondary to COPD exacerbation. Pt was started on systemic steroids and nebulizer treatments to which she responded appropriately. Her hospital course was complicated by severe anxiety requiring prn anxiety medic ation support. She is currently back to her baseline respiratory status. Initially patient reported of not having a ride due to which she was not able to follow up with her PCP, however today patient is stating that she has friends that can take her to her follow up appointments. Patient has history of medical noncompliance due to unclear etiology. Patient is seen and examined today. Denies any discomfort. She is medically stable for discharge to home with continuation of home health services. Patient demonstrates understanding of her diagnosis and agrees with the discharge care and plan. All questions were answered. Discharge discussed with: patient, nurse, social work, case management Time spent discussing smoking cessation with patient: 3 to 10 minutes - Time Spent with Patient Total time spent providing and/or coordinating discharge services: 35 minutes Time spent: Greater than 30 minutes - Discharge Medications Prescriptions: New predniSONE [PredniSONE] 40 mg PO DAILY #5 tablet Continue Levothyroxine [Synthroid] 88 mcg PO DAILY Albuterol Sulfate [Albuterol Inhaler] 2 puff IH Q4H PRN PRN Reason: Shortness Of Breath Home Medications: Levothyroxine [Synthroid] 88 mcg PO DAILY 11/27/15 [History] Albuterol Sulfate [Albuterol Inhaler] 2 puff IH Q4H PRN 08/30/18 [History] predniSONE [PredniSONE] 40 mg PO DAILY #5 tablet 09/01/18 [Rx] Allergies/Adverse Reactions: Allergy/AdvReac Type Severity Reaction Status Date / Time morphine AdvReac Hives Verified 10/30/18 11:22 Date of admission: 08/29/18 23:30 Primary care physician: Julia Dennis Consults: 08/30/18 01:01 Consult to Nurse Navigator [CONS] Routine Comment: 08/30/18 08:15 Consult to Database Technician [CONS] Routine Reason for SW Consult: Patient has run out of medications, as well as equipment for her home oxygen. Has difficulty with transportation and cannot go see the doctor or pickup prescriptions. 08/31/18 13:05 Consult to Physical Therapy [CONS] Routine Comment: Evaluate, develop and implement POC Reason for Consult: evaluation for discharge Does patient have active BEDREST order?: No Is patient medically & hemodynamically stable?: Yes Patient assessed for mobility or mobilized this visit?: Yes 08/31/18 13:06 Consult to Nutrition [CONS] Routine Comment: Consulting Provider: NUTRITION Reason for Dietary Consult: PO Supplementation Discharging clinician: Ignacia Coleman Anticipated date of discharge: 09/01/18 - Constitutional Vitals: Temp Pulse Resp BP Pulse Ox 97.5 F L 105 14 123/92 95 09/01/18 12:01 09/01/18 12:01 09/01/18 12:01 09/01/18 12:01 09/01/18 12:01 General appearance: Present: A&O X 3, underweight, answers questions appropriately Exam: General: No acute distress, AAO x 3, frail appearing female, cachetic HEENT: EOMI, NC/AT, no scleral icterus Respiratory: Equal air entry bilaterally, no wheezing, no rales, no rales Cardiovascular: Regular, Rate, Rhythm, No murmurs GI: Soft, Non tender, non distended, normal bowel sounds Ext: No edema, no tenderness, positive pulses Neuro: AAO x 3, no focal deficits psych: calm, cooperative rest of the clinical exam is non contributory - Patient Status Disposition: Home Health Service Condition: Good Overall status at discharge: patient is back to baseline - Discharge Instructions Follow Up With: Julia Dennis [Primary Care Provider] - Additional Instructions: Please follow up with your primary care physician and [employer] within five days after your discharge from the hospital. Please continue oral Prednisone as prescribed Please resume your home medications as prescribed by your primary care physician Smoking cessation is advised Please seek medical help if you have difficulty breathing or if chest pain occurs. - Diet and Activity Activity: wear oxygen at all times, wear oxygen at night Diet: advance to your usual diet
== END 2018-09-01 15:20 | disposition home health service (06) ==
LOC: EMEROOARM 18:58 → 3BNU 18:58
PROVIDERS: ADMIT Pediatrics; ATTEND Internal Medicine

== ENCOUNTER 2021-09-17 18:04 | Inpatient (IN) ==
[2021-09-17 19:05] LABS: Alanine Aminotransferase 25 Units/L (7-52); Albumin 3.9 g/dL (3.5-5.7); Albumin/Globulin Ratio 1.8 (1.1-2.2); Alkaline Phosphatase 140 Units/L (34-104); Aspartate Amino Transferase 57 Units/L (13-39); BUN/Creatinine Ratio 43 (6-26); Bilirubin,Total 0.5 mg/dL (0.3-1.0); Blood Urea Nitrogen 27 mg/dL (8-23); Carbon Dioxide 34 mEq/L (23-29); Chloride 73 mEq/L (98-107); Globulin 2.2 g/dL (2.4-3.5); Glucose 86 mg/dL (70-105); Osmolality,Calculated 248 (280-300); Potassium 3.1 mEq/L (3.5-5.1); Sodium 117 mEq/L (136-145); Total Protein 6.1 g/dL (6.4-8.9); eGFR For African Americans > 60 (> 60); eGFR For Non-African Americans > 60 (> 60)
[2021-09-17 19:14] LABS: Bilirubin,Urine Negative (Negative); Blood,Urine Negative (Negative); Clarity,Urine Clear (Clear); Color,Urine Light-Yellow (Yellow); Glucose,Urine (UA) Normal (Normal); Ketones,Urine Negative (Negative); Leukocyte Esterase,Urine Negative (Negative); Nitrite,Urine Negative (Negative); PH,Urine 6.5 pH Units (5.0-8.0); Protein,Urine Trace mg/dL (Neg-Trace); Specific Gravity,Urine 1.012 (1.010-1.025); Urobilinogen,Urine Normal (Normal)
[2021-09-17 19:21] LABS: VBG HCO3 35 mEq/L (21-27); VBG PCO2 58 mmHg (41-51); VBG PH 7.38 pH Units (7.32-7.42); VBG PO2 114 mmHg (25-50)
[2021-09-17 19:30] LABS: Creatine Kinase 181 Units/L (30-223); Magnesium 1.4 mg/dL (1.6-2.6); Thyroid Stimulating Hormone 6.171 mcIU/mL (0.340-5.600); Troponin I < 0.03 ng/mL (< 0.04)
[2021-09-17] MEDS ORDERED: 0.9 % Sodium Chloride 1,000 ML IVC SCH (19:30)
[2021-09-17] MEDS ORDERED: Magnesium Sulfate 1 GM/102 ML PIGGYBACK IVPB ONE ×2 (19:40→20:47)
[2021-09-17 19:58] LABS: Basophils % 0.2 %; Eosinophils % 0.1 %; Hemoglobin 9.2 g/dL (11.5-15.4); Immature Granulocytes % 0.4 % (0-4); Lymphocytes # 0.6 K/mcL (0.6-4.6); Lymphocytes % 6.4 %; Mean Corpuscular HGB Conc 36.8 g/dL (31.6-35.5); Mean Corpuscular Hemoglobin 31.3 pg (28.0-33.3); Mean Platelet Volume 9.6 fL (9.4-12.4); Monocytes # 0.8 K/mcL (0.0-1.3); Monocytes % 8.8 %; Neutrophils # 7.6 K/mcL (1.6-8.9); Platelet Count 236 K/mcL (140-400); Red Blood Count 2.94 M/mcL (3.82-4.97); Red Cell Distribution Width 11.8 % (11.5-14.5); Segmented Neutrophils % 84.1 %; White Blood Count 9.1 K/mcL (4.3-11.1)
[2021-09-17] MEDS ORDERED: Ondansetron 4 MG/2 ML VIAL IVP PRN (20:45)
[2021-09-17] MEDS ORDERED: Naloxone 0.4 MG/ML INJ IVP PRN (20:45)
[2021-09-17] MEDS: 0.9 % Sodium Chloride 1,000 ML IVC SCH (21:07)
[2021-09-17 21:21] LABS: BUN/Creatinine Ratio 44 (6-26); Blood Urea Nitrogen 28 mg/dL (8-23); Calcium 8.8 mg/dL (8.6-10.3); Carbon Dioxide 30 mEq/L (23-29); Chloride 72 mEq/L (98-107); Glucose 84 mg/dL (70-105); Osmolality,Calculated 249 (280-300); Potassium 3.1 mEq/L (3.5-5.1); Sodium 117 mEq/L (136-145); eGFR For African Americans > 60 (> 60); eGFR For Non-African Americans > 60 (> 60)
[2021-09-17 21:25] LABS: Adenovirus Not Detected (Not Detect); Bordetella Pertussis Not Detected (Not Detect); Chlamydophila pneumoniae Not Detected (Not Detect); Coronavirus 229E Not Detected (Not Detect); Coronavirus HKU1 Not Detected (Not Detect); Coronavirus NL63 Not Detected (Not Detect); Coronavirus OC43 Not Detected (Not Detect); Human Metapneumovirus Not Detected (Not Detect); Human Rhinovirus/Enterovirus Not Detected (Not Detect); Influenza A Subtype 2009 H1 Not Detected (Not Detect); Influenza B Not Detected (Not Detect); Mycoplasma pneumoniae Not Detected (Not Detect); Parainfluenza Virus 1 Not Detected (Not Detect); Parainfluenza Virus 2 Not Detected (Not Detect); Parainfluenza Virus 3 Not Detected (Not Detect); Parainfluenza Virus 4 Not Detected (Not Detect); Respiratory Syncytial Virus Not Detected (Not Detect); SARS-CoV-2 Not Detected (Not Detect)
[2021-09-17 21:29] LABS: Amphetamine Screen,Urine Negative ng/mL (Cutoff=1000); Barbiturate Screen,Urine Negative ng/mL (Cutoff=200); Benzodiazepines Screen,Urine Negative ng/mL (Cutoff=200); Cannabinoid Screen,Urine Negative ng/mL (Cutoff = 50); Cocaine Screen,Urine Negative ng/mL (Cutoff= 300); Opiate Screen,Urine Positive ng/mL (Cutoff=300); Phencyclidine Screen,Urine Negative ng/mL (Cutoff=25); Sodium, Urine < 10.0 mEq/L
[2021-09-17 22:39] LABS: Thyroid Stimulating Hormone 6.285 mcIU/mL (0.340-5.600)
[2021-09-17] MEDS ORDERED: Potassium Chloride Elixir 20 MEQ/15 ML UDC PO ONE (23:50)
[2021-09-18] MEDS ORDERED: Ipratropium/Albuterol Neb 3 ML IH PRN
[2021-09-18] MEDS: 0.9 % Sodium Chloride 1,000 ML IVC SCH ×2 (00:41→11:37)
[2021-09-18] MEDS: *HR* Heparin 5,000 UNIT/ML VIAL SQ SCH ×2 (00:45→05:10)
[2021-09-18 05:20] LABS: Hematocrit 27.8 % (35.3-44.9); Mean Corpuscular Hemoglobin 31.3 pg (28.0-33.3); Mean Corpuscular Volume 87.1 fL (83.0-100.0); Mean Platelet Volume 9.7 fL (9.4-12.4); Platelet Count 270 K/mcL (140-400); Red Blood Count 3.19 M/mcL (3.82-4.97); Red Cell Distribution Width 11.9 % (11.5-14.5)
[2021-09-18 05:21] LABS: White Blood Count 16.9 K/mcL (4.3-11.1)
[2021-09-18 05:40] LABS: BUN/Creatinine Ratio 44 (6-26); Blood Urea Nitrogen 24 mg/dL (8-23); Calcium 8.3 mg/dL (8.6-10.3); Carbon Dioxide 36 mEq/L (23-29); Chloride 83 mEq/L (98-107); Glucose 100 mg/dL (70-105); Osmolality,Calculated 260 (280-300); Potassium 3.6 mEq/L (3.5-5.1); Sodium 123 mEq/L (136-145); eGFR For African Americans > 60 (> 60); eGFR For Non-African Americans > 60 (> 60)
[2021-09-18] MEDS ORDERED: Lactulose Oral Soln 20 GM/30 ML UDC PO SCH ×2 (08:00→09:15)
[2021-09-18] MEDS ORDERED: amLODIPine 5 MG TABLET PO SCH (09:00)
[2021-09-18 11:02] LABS: BUN/Creatinine Ratio 42 (6-26); Blood Urea Nitrogen 23 mg/dL (8-23); Calcium 8.1 mg/dL (8.6-10.3); Carbon Dioxide 30 mEq/L (23-29); Chloride 87 mEq/L (98-107); Glucose 105 mg/dL (70-105); Magnesium 1.8 mg/dL (1.6-2.6); Osmolality,Calculated 258 (280-300); Potassium 3.9 mEq/L (3.5-5.1); Sodium 122 mEq/L (136-145); eGFR For African Americans > 60 (> 60); eGFR For Non-African Americans > 60 (> 60)
[2021-09-18] MEDS ORDERED: Artificial Tears SOLN 15 ML BOTTLE BOTH EYES PRN (13:36)
[2021-09-18 13:41] VITALS: BP 81/46; PULSE 90; TEMP 99.7
[2021-09-18 13:43] VITALS: O2SAT 98
[2021-09-18] MEDS ORDERED: 0.9 % Sodium Chloride 500 ML IVC ONE (14:26)
[2021-09-18] MEDS ORDERED: Cefepime HCl 2,000 MG in 0.9 % Sodium Chloride Mini Bag 100 ML IVPB SCH (14:56)
[2021-09-18] MEDS ORDERED: Cefepime HCl 2,000 MG in 0.9 % Sodium Chloride 10 ML IVP SCH (16:00)
== END 2021-09-18 18:00 | disposition expired | DRG 426 ==
LOC: EMEROOARM 18:04 → SUATTDRO 21:20 → 2NNU 21:20 → 3NENU 09-18 10:49
PROVIDERS: ADMIT Student in an Organized Health Care Education/Training Program; ATTEND Family Medicine